=== PATIENT | male | born 1985 ===

== ENCOUNTER 2017-07-15 18:31 | Inpatient (IN) | payer OTHER ==
[2017-07-15 18:31] VITALS: BMI 26.4
[2017-07-15] MEDS ORDERED: Multivitamin (MVI) 10 ML, Thiamine 100 MG, Folic Acid 1 MG in Dextrose 5%/0.45% NS 1,00... IV ONE (19:04)
[2017-07-15] MEDS ORDERED: Sodium Chloride 0.9% 1,000 ML IV STA (19:04)
[2017-07-15 19:32] LABS: ALB/GLOB RATIO 1.1 (1.0-2.1); ALT/SGPT 35 U/L (21-72); AST/SGOT 40 U/L (17-59); BLOOD UREA NITROGEN 16 mg/dl (9-20); CALCIUM 8.6 mg/dL (8.4-10.2); GFR AFRICAN-AMERICAN > 60; GFR NON-AFRICAN AMERICAN > 60; LIPASE 206 U/L (23-300); MAGNESIUM 2.1 MG/DL (1.6-2.3)
[2017-07-15 19:38] LABS: VENOUS BLOOD GAS BASE EXCESS 0.7 mmol/L (0.0-2.0); VENOUS BLOOD GAS PCO2 35 mmHg (40-60); VENOUS BLOOD GAS PO2 54 mm/Hg (30-55); VENOUS BLOOD PH 7.45 (7.32-7.43)
[2017-07-15 19:41] LABS: PARTIAL THROMBOPLASTIN TIME 28.5 Seconds (25.6-37.1); PROTHROMBIN TIME 11.5 Seconds (9.8-13.1)
[2017-07-15 21:09] LABS: BASO % 0.3 % (0.0-2.0); EOS % 0.1 % (0.0-4.0); HEMOGLOBIN 11.7 g/dL (12.0-18.0); LYMPH % 19.6 % (20.0-40.0); MEAN CELL VOLUME 76.7 fl (80.0-94.0); MEAN CORPUSCULAR HEMOGLOBIN 24.2 pg (27.0-31.0); MEAN CORPUSCULAR HGB CONC 31.6 g/dL (33.0-37.0); MONO # 0.8 K/uL (0.0-0.8); MONO % 5.3 % (0.0-10.0); NEUT # 11.4 K/uL (1.8-7.0); NEUT % 74.7 % (50.0-75.0); NRBC % 0.1 % (0.0-0.0); RBC 4.85 Mil/uL (4.40-5.90); RED CELL DISTRIBUTION WIDTH 17.2 % (11.5-14.5); WHITE BLOOD COUNT 15.2 K/uL (4.8-10.8)
--- NOTE | 2017-07-15 21:10 | CP.PCM.HP ---
History of Present Illness - History of Present Illness History of Present Illness: PMD: None Chief Complaint: Abdominal Pain/ vomiting Blood The Patient was seen and examined in the ED HPI:32 years old male with hx of HTN, DM II, Schizophrenia Alcohol Abuse and GI bleed, comes with Hematemesis from the previous night associated with rectal bleeding, abdominal pain and SOB. He had been drinking on the night before this admission. He referred similar event last year and was treated at the [facility], undergoing Endoscopy. "Results unknown. PMH: Fractures, HTN?, DM II?; Schizophrenia; Fracture right humeral great tuberosity; Right foot Metartarsal fracture PSH: Right shoulder Clavicular Fx s/p surgery 10 years ago in [facility] SH: ETOH since 12years, 2 bottles of Vodka daily; Live with friends; used to work in restaurant now unemployed; Never smoked FH: States: Unknown Family Hx Allergies: NKDA Medication: None - Present on Admission - Present on Admission Any Indicators Present on Admission: No History of DVT/PE: No History of Uncontrolled Diabetes: No Urinary Catheter: No Decubitus Ulcer Present: No Review of Systems - Review of Systems Systems not reviewed;Unavailable: Intoxicated Review of Systems: Review of systems is limited because of the intoxication Past Patient History - Past Medical History & Family History Past Medical History?: Yes - Past Social History Smoking Status: Never Smoked Chewing Tobacco Use: No Cigar Use: No Alcohol: > 2 Drinks/Day Drugs: Denies Home Situation {Lives}: Friends - CARDIAC Hx Cardiac Disorders: No Hx Hypertension: Yes - PULMONARY Hx Respiratory Disorders: No Hx Tuberculosis: No - NEUROLOGICAL Hx Neurological Disorder: No Hx Seizures: No - HEENT Hx HEENT Problems: No - RENAL Hx Renal Failure: Yes - ENDOCRINE/METABOLIC Hx Endocrine Disorders: No Hx Diabetes Mellitus Type 2: Yes - HEMATOLOGICAL/ONCOLOGICAL Hx Blood Disorders: No Hx Human Immunodeficiency Virus (HIV): No - INTEGUMENTARY Hx Dermatological Problems: No - MUSCULOSKELETAL/RHEUMATOLOGICAL Hx Musculoskeletal Disorders: Yes Hx Falls: Yes Hx Fractures: Yes - GASTROINTESTINAL Hx Gastrointestinal Disorders: No - GENITOURINARY/GYNECOLOGICAL Hx Genitourinary Disorders: No Hx Sexually Transmitted Disorders: No - PSYCHIATRIC Hx Psychophysiologic Disorder: No Hx Anxiety: No Hx Bipolar Disorder: No Hx Depression: No Hx Schizophrenia: No Hx Substance Use: Yes (use of cocaine one time) - SURGICAL HISTORY Hx Surgeries: Yes - ANESTHESIA Hx Anesthesia: Yes Hx Anesthesia Reactions: No Meds Allergies/Adverse Reactions: Allergies Allergy/AdvReac Type Severity Reaction Status Date / Time No Known Allergies Allergy Verified 05/30/16 09:21 Physical Exam - Constitutional Appears: No Acute Distress - Head Exam Head Exam: ATRAUMATIC, NORMAL INSPECTION, NORMOCEPHALIC - Eye Exam Eye Exam: EOMI, Normal appearance Pupil Exam: NORMAL ACCOMODATION, PERRL - ENT Exam ENT Exam: Mucous Membranes Moist, Normal Exam, Normal External Ear Exam - Neck Exam Neck exam: Positive for: Full Rom, Normal Inspection. Negative for: Lymphadenopathy, Tenderness - Respiratory Exam Respiratory Exam: Clear to Auscultation Bilateral. absent: Rales, Rhonchi, Wheezes - Cardiovascular Exam Cardiovascular Exam: REGULAR RHYTHM, +S1, +S2. absent: Gallop - GI/Abdominal Exam GI & Abdominal Exam: Normal Bowel Sounds, Soft Additional comments: Epigastric tenderness, no rebound tenderness, no guarding. - Rectal Exam Rectal Exam: Black Stool - Extremities Exam Extremities exam: Positive for: normal inspection. Negative for: calf tenderness, joint swelling, pedal edema - Back Exam Back exam: NORMAL INSPECTION. absent: CVA tenderness (L), CVA tenderness (R) - Neurological Exam Neurological exam: CN II-XII Intact, Reflexes Normal Additional comments: Awake , Oriented but slow mentation because of the intoxication, poor memory, no facial droop, Motor tone is conserved. Motor strength equal at all 4 extremities - Psychiatric Exam Psychiatric exam: Normal Affect, Normal Mood - Skin Skin Exam: Dry, Intact, Normal Color, Warm Results - Vital Signs Recent Vital Signs: Last Vital Signs Temp 98.9 F 07/15/17 18:34 Pulse 132 H 07/15/17 20:29 Resp 18 07/15/17 20:29 BP 118/79 07/15/17 20:29 Pulse Ox 97 07/15/17 20:29 - Labs Result Diagrams: 07/15/17 19:14 07/15/17 19:12 Labs: Laboratory Results - last 24 hr 07/15/17 07/15/17 07/15/17 18:56 19:12 19:12 PT INR APTT pO2 VBG pH VBG pCO2 VBG HCO3 VBG Total CO2 VBG O2 Sat (Calc) VBG Base Excess VBG Potassium Glucose Lactate FiO2 Crit Value Called To Crit Value Called By Crit Value Read Back Blood Gas Notified Time Sodium 140 Potassium 3.2 L Chloride 97 L Carbon Dioxide 23 Anion Gap 23 H BUN 16 Creatinine 0.7 L Est GFR ( Amer) > 60 Est GFR (Non-Af Amer) > 60 POC Glucose (mg/dL) 123 H Random Glucose 131 H Calcium 8.6 Phosphorus 3.0 Magnesium 2.1 Total Bilirubin 0.4 AST 40 ALT 35 Alkaline Phosphatase 68 Ammonia 17 Total Protein 7.8 Albumin 4.0 Globulin 3.7 Albumin/Globulin Ratio 1.1 Lipase 206 Venous Blood Potassium Alcohol, Quantitative 249 H 07/15/17 07/15/17 19:12 19:30 PT 11.5 INR 1.0 APTT 28.5 pO2 54 VBG pH 7.45 H VBG pCO2 35 L VBG HCO3 25.3 VBG Total CO2 25.4 VBG O2 Sat (Calc) 95.6 H VBG Base Excess 0.7 VBG Potassium 2.9 L Glucose 125 H Lactate 4.4 H* FiO2 21.0 Crit Value Called To Emilee rosas Crit Value Called By 23 Crit Value Read Back Y Blood Gas Notified Time 1934 Sodium 137.0 Potassium Chloride 105.0 Carbon Dioxide Anion Gap BUN Creatinine Est GFR ( Amer) Est GFR (Non-Af Amer) POC Glucose (mg/dL) Random Glucose Calcium Phosphorus Magnesium Total Bilirubin AST ALT Alkaline Phosphatase Ammonia Total Protein Albumin Globulin Albumin/Globulin Ratio Lipase Venous Blood Potassium 2.9 L Alcohol, Quantitative - EKG Data EKG comments: Sinus Tachycardia 137/min - Imaging and Cardiology Chest x-ray Status: Image reviewed by me Additional comment: No infiltrate Assessment & Plan - Assessment and Plan (Free Text) Assessment: #. GI Bleed #. Alcohpol Intoxication #. Anemia #. Hypokalemia #. Leukocytosis Plan: 32 years old male with hx of HTN, DM II, Schizophrenia Alcohol Abuse and GI bleed, comes with Hematemesis from the previous night associated with rectal bleeding, abdominal pain and SOB. He had been drinking on the night before this admission. #. GI Bleed probably secondary to rupture Esophageal varices vs Hemorrhagic Gastritis - consult [facility] - NPO - Octreotide - Pantoprazole #. Anemia Secondary to blood loss - Type and Cross and transfuse PRBC - Follow HB #. Alcohpol Intoxication - IV Fluids - Alcohol withdrawal precaution with Ativan for Agitation/Seizure . - Banana Bag with Multivitamin/ Folic Acid/ Vitamin B12 #. Hypokalemia. Replaced - Follow Electrolytes #. DVT prophylaxis with SCD #. Code Status: Full - Date & Time Date: 07/15/17 Time: 21:10
[2017-07-15] MEDS ORDERED: Octreotide 500 mcg/ml Inj IV STA (21:43)
[2017-07-15] MEDS: Pantoprazole 40 MG in Sodium Chloride 0.9% 100 ML IVPB SCH (21:58)
--- NOTE | 2017-07-15 22:10 | ED PDOC ---
HPI:Nausea, Vomiting, Diarrhea Time Seen by Provider: 07/15/17 18:57 Chief Complaint (Nursing): Abdominal Pain Chief Complaint (Provider): vomiting blood History Per: Patient History/Exam Limitations: intoxication Onset/Duration Of Symptoms: Days (2), Persistent Additional Complaint(s): Reports vomiting blood since last night, associated with rectal bleeding as well. Pt admits heavy drinking every day and h/o GI bleed. Also c/o abdominal pain and shortness of breath and nausea. History difficult due to intoxication, but he reports that he had similar presentation last year, evaluated and managed in [facility], including undergoing an endoscopy, but does not remember the results. PMD None. Past Medical History Reviewed: Historical Data, Nursing Documentation, Vital Signs Vital Signs: Last Vital Signs Temp 98.9 F 07/15/17 18:34 Pulse 130 H 07/15/17 21:37 Resp 17 07/15/17 21:37 BP 132/82 07/15/17 21:37 Pulse Ox 97 07/15/17 21:37 - Medical History PMH: Fractures, HTN Other PMH: Psychiatric history from previous charts - Surgical History Surgical History: Endoscopy - Family History Family History: States: Unknown Family Hx - Social History Alcohol: > 2 Drinks/Day Drugs: Denies - Home Medications Home Medications: Ambulatory Orders Medication Instructions Recorded No Known Home Med 07/15/17 - Allergies Allergies/Adverse Reactions: Allergies Allergy/AdvReac Type Severity Reaction Status Date / Time No Known Allergies Allergy Verified 05/30/16 09:21 Review of Systems ROS Statement: Except As Marked, All Systems Reviewed And Found Negative (and as per HPI but may be unreliable due to intoxication) Constitutional: Positive for: Weakness, Malaise Gastrointestinal: Positive for: Vomiting, Abdominal Pain, Hematochezia, Hematemesis Neurological: Positive for: Weakness Physical Exam - Reviewed Nursing Documentation Reviewed: Yes Vital Signs Reviewed: Yes - Physical Exam Appears: Positive for: Uncomfortable, In Acute Distress Head Exam: Positive for: ATRAUMATIC, NORMOCEPHALIC Skin: Positive for: Warm, Dry, Pallor ENT: Positive for: Other (dry mucus membranes). Negative for: Pharyngeal Erythema, Tonsillar Exudate Neck: Positive for: Painless ROM, Supple Cardiovascular/Chest: Positive for: Tachycardia. Negative for: Murmur Respiratory: Positive for: Normal Breath Sounds. Negative for: Wheezing Gastrointestinal/Abdominal: Positive for: Soft, Tenderness. Negative for: Mass , Distended, Guarding, Rebound Back: Positive for: Normal Inspection. Negative for: Decreased ROM Extremity: Positive for: Normal ROM. Negative for: Deformity Lymphatic: Negative for: Adenopathy Neurologic/Psych: Positive for: Alert, Oriented (x2), Other (slurred speech) - Laboratory Results Result Diagrams: 07/16/17 08:00 07/16/17 08:34 - ECG ECG Rhythm: Positive for: Sinus Rhythm, Sinus Tachycardia. Negative for: ST/T Changes O2 Sat by Pulse Oximetry: 97 - Radiology X-Ray: Interpreted by Id X-Ray Interpretation: No Acute Disease - Critical Care Total Time (In Min): 30 Documented Critical Care: Time excludes all time spent performint seperately billable procedures Medical Decision Making Medical Decision Making: Impression: GI Bleed, alcohol abuse Pt had episodes of bright red bloody emesis in ER, witnessed by myself and RN. Tachycardia, treated with fluids and Ativan for possible withdrawal. Differential include esophageal varices, hemorrhagic ulcer, margie padilla tear, coagulopathy, anemia, dehydration, alcohol withdrawal IVF, Octreotride drip, Protonix drip, IV zofran. and Transfusion DW Dr Armstrong Hospitalist for admission and ICU placement [facility] GI Fellow for Dr Kim GI Disposition - Clinical Impression Clinical Impression: Hematemesis, Alcohol abuse - Disposition Disposition Time: 19:00 Condition: CRITICAL - Pt Status Changed To: Hospital Disposition Of: Inpatient - Admit Certification Admit to Inpatient:: After my assessment, the patient will require hospitalization for at least two midnights. This is because of the severity of symptoms shown, intensity of services needed, and/or the medical risk in this patient being treated as an outpatient. - POA Present On Arrival: None
[2017-07-15 22:26] LABS: BARBITURATES, UR NEGATIVE (NEGATIVE); BENZODIAZEPINES, UR NEGATIVE (NEGATIVE); OPIATES, UR NEGATIVE (NEGATIVE); PHENCYCLIDINE, UR NEGATIVE (NEGATIVE)
[2017-07-15] MEDS ORDERED: DiphenhydrAMINE 50 mg/ml Inj IVP STA (22:50)
[2017-07-15] MEDS ORDERED: DiphenhydrAMINE 50 mg/ml Inj ONE (23:09)
[2017-07-16] MEDS: Pantoprazole 40 MG in Sodium Chloride 0.9% 100 ML IVPB SCH ×4 (03:45→20:06)
--- NOTE | 2017-07-16 07:45 | CP.CCUPN ---
CCU Subjective - Physician Review Events Since Last Encounter (Free Text): 07/16/17 18:05 The patient was Seen/interviewed and examined by me at the bedside during ICU round, Medical records reviewed and Management issues were discussed and formulated with the house staff. Events reviewed 32 Years old Male with PMHx of Alcohol Abuse age of 12years, HTN, DM II, Schizophrenia; Fracture right humeral great tuberosity; Right foot Metartarsal fracture and GI bleed. Who presented to the Emergency department with complaint of abdominal Pain, vomiting Blood from the previous night associated with rectal bleeding and SOB. He had been drinking on the night before this admission. He stated that he had a similar event last year and was treated at the [facility], underwent Endoscopy but does not remember the Results. Patient was started on Octreotide & Pantoprazole drips and admitted to the ICU for acute upper GI Bleed and Alcohol Intoxication Patient was transfused one unit packed RBC in the ER Labs revealed stable H/H, urine drug screen negative, Etoh level of 249 CCU Objective - Vital Signs / Intake & Output Vital Signs (Last 4 hours): Vital Signs Temp Pulse Resp BP Pulse Ox 07/16/17 06:36 93 H 16 139/92 H 98 07/16/17 05:34 97 H 16 130/87 98 07/16/17 03:55 98.9 F 106 H 22 111/80 99 Intake and Output (Last 8hrs): Intake & Output 07/15/17 07/16/17 07/16/17 22:59 06:59 14:59 Weight 180 lb - Physical Exam Head: Positive for: Atraumatic, Normocephalic Pupils: Positive for: PERRL. Negative for: Sluggish, Non-Reactive, Pinpoint Extroacular Muscles: Positive for: EOMI Conjunctiva: Positive for: Normal. Negative for: Injected, Icteric Ears: Positive for: Normal Mouth: Positive for: Moist Mucous Membranes Pharnyx: Positive for: Normal Neck: Positive for: Normal Range of Motion, Trachea Midline. Negative for: Meningeal Signs, MIDLINE TENDERNESS, Paraspinal Tenderness, JVD, Lymphadenopathy , Bruit, Other Respiratory/Chest: Positive for: Clear to Auscultation, Good Air Exchange. Negative for: Respiratory Distress, Accessory Muscle Use, Wheezes, Decreased Breath Sounds, Rales Cardiovascular: Positive for: Regular Rate and Rhythm, Normal S1, S2, Peripheal Pulses Present. Negative for: Murmurs, Irregular Rhythm Abdomen: Positive for: Normal Bowel Sounds. Negative for: Tenderness, Distention, Peritoneal Signs Neurological: Positive for: GCS=15, CN II-XII Intact, Speech Normal Psychiatric: Positive for: Alert, Oriented x 3 - Medications Active Medications: Active Medications Generic Name Dose Route Start Last Admin Trade Name Freq PRN Reason Stop Dose Admin Octreotide Acetate 1,250 mcg/ 252.5 mls @ 10.1 mls/hr 07/15/17 21:00 22:43 Sodium Chloride IV 10.1 mls/hr .Q24H LUNA Administration Protocol 50 MCG/HR Pantoprazole Sodium 40 mg/ 100 mls @ 20 mls/hr 07/15/17 21:15 07/16/17 03:45 Sodium Chloride IVPB 20 mls/hr Q5H LUNA Administration 8 MG/HR Lactated Ringer's 1,000 mls @ 125 mls/hr 07/16/17 07:15 Lactated Ringer's IV .Q8H LUNA Lorazepam 1 mg 07/15/17 23:36 Ativan IVP Q4H PRN Agitation Ondansetron HCl 4 mg 07/15/17 23:03 Zofran Inj IVP Q4 PRN Nausea/Vomiting Thiamine HCl 100 mg 07/16/17 09:00 Vitamin B1 Inj IM DAILY LUNA - Patient Studies Lab Studies: Lab Studies 07/15/17 07/15/17 07/15/17 Range/Units 23:54 21:50 21:45 WBC (4.8-10.8) K/uL RBC (4.40-5.90) Mil/uL Hgb (12.0-18.0) g/dL Hct (35.0-51.0) % MCV (80.0-94.0) fl MCH (27.0-31.0) pg MCHC (33.0-37.0) g/dL RDW (11.5-14.5) % Plt Count (130-400) K/uL MPV (7.2-11.7) fl Neut % (Auto) (50.0-75.0) % Lymph % (Auto) (20.0-40.0) % [place] % (Auto) (0.0-10.0) % Eos % (Auto) (0.0-4.0) % Baso % (Auto) (0.0-2.0) % Neut # (Auto) (1.8-7.0) K/uL Lymph # (Auto) (1.0-4.3) K/uL [place] # (Auto) (0.0-0.8) K/uL Eos # (Auto) (0.0-0.7) K/uL Baso # (Auto) (0.0-0.2) K/uL PT (9.8-13.1) Seconds INR (0.9-1.2) APTT (25.6-37.1) Seconds pO2 (30-55) mm/Hg VBG pH (7.32-7.43) VBG pCO2 (40-60) mmHg VBG HCO3 mmol/L VBG Total CO2 (22-28) mmol/L VBG O2 Sat (Calc) (40-65) % VBG Base Excess (0.0-2.0) mmol/L VBG Potassium (3.6-5.2) mmol/L Glucose (75-110) mg/dL Lactate (0.7-2.1) mmol/L FiO2 % Crit Value Called To Crit Value Called By Crit Value Read Back Blood Gas Notified Time Sodium (132-148) mmol/l Potassium (3.6-5.0) MMOL/L Chloride (98-107) mmol/L Carbon Dioxide (22-30) mmol/L Anion Gap (10-20) BUN (9-20) mg/dl Creatinine (0.8-1.5) mg/dl Est GFR ( Amer) Est GFR (Non-Af Amer) POC Glucose (mg/dL) 128 H (65-110) mg/dL Random Glucose (75-110) mg/dL Calcium (8.4-10.2) mg/dL Phosphorus (2.5-4.5) mg/dl Magnesium (1.6-2.3) MG/DL Total Bilirubin (0.2-1.3) mg/dl AST (17-59) U/L ALT (21-72) U/L Alkaline Phosphatase (38-126) U/L Ammonia (16-60) umo/L Total Protein (6.3-8.2) G/DL Albumin (3.5-5.0) g/dL Globulin (2.2-3.9) gm/dL Albumin/Globulin Ratio (1.0-2.1) Lipase (23-300) U/L Venous Blood Potassium (3.6-5.2) mmol/L Urine Opiates Screen Negative (NEGATIVE) Urine Methadone Screen Negative (NEGATIVE) Ur Barbiturates Screen Negative (NEGATIVE) Ur Phencyclidine Scrn Negative (NEGATIVE) Ur Amphetamines Screen Negative (NEGATIVE) U Benzodiazepines Scrn Negative (NEGATIVE) U Oth Cocaine Metabols Negative (NEGATIVE) U Cannabinoids Screen Negative (NEGATIVE) Alcohol, Quantitative (0-10) mg/dl Blood Type Blood Type Confirm A POSITIVE Antibody Screen Crossmatch BBK History Checked 07/15/17 07/15/17 07/15/17 Range/Units 21:11 19:30 19:14 WBC 15.2 H D (4.8-10.8) K/uL RBC 4.85 (4.40-5.90) Mil/uL Hgb 11.7 L (12.0-18.0) g/dL Hct 37.2 (35.0-51.0) % MCV 76.7 L D (80.0-94.0) fl MCH 24.2 L (27.0-31.0) pg MCHC 31.6 L (33.0-37.0) g/dL RDW 17.2 H (11.5-14.5) % Plt Count 248 D (130-400) K/uL MPV 9.0 (7.2-11.7) fl Neut % (Auto) 74.7 (50.0-75.0) % Lymph % (Auto) 19.6 L (20.0-40.0) % [place] % (Auto) 5.3 (0.0-10.0) % Eos % (Auto) 0.1 (0.0-4.0) % Baso % (Auto) 0.3 (0.0-2.0) % Neut # (Auto) 11.4 H (1.8-7.0) K/uL Lymph # (Auto) 3.0 (1.0-4.3) K/uL [place] # (Auto) 0.8 (0.0-0.8) K/uL Eos # (Auto) 0.0 (0.0-0.7) K/uL Baso # (Auto) 0.0 (0.0-0.2) K/uL PT (9.8-13.1) Seconds INR (0.9-1.2) APTT (25.6-37.1) Seconds pO2 54 (30-55) mm/Hg VBG pH 7.45 H (7.32-7.43) VBG pCO2 35 L (40-60) mmHg VBG HCO3 25.3 mmol/L VBG Total CO2 25.4 (22-28) mmol/L VBG O2 Sat (Calc) 95.6 H (40-65) % VBG Base Excess 0.7 (0.0-2.0) mmol/L VBG Potassium 2.9 L (3.6-5.2) mmol/L Glucose 125 H (75-110) mg/dL Lactate 4.4 H* (0.7-2.1) mmol/L FiO2 21.0 % Crit Value Called To Emilee rosas Crit Value Called By 23 Crit Value Read Back Y Blood Gas Notified Time 1934 Sodium 137.0 (132-148) mmol/l Potassium (3.6-5.0) MMOL/L Chloride 105.0 (98-107) mmol/L Carbon Dioxide (22-30) mmol/L Anion Gap (10-20) BUN (9-20) mg/dl Creatinine (0.8-1.5) mg/dl Est GFR ( Amer) Est GFR (Non-Af Amer) POC Glucose (mg/dL) 118 H (65-110) mg/dL Random Glucose (75-110) mg/dL Calcium (8.4-10.2) mg/dL Phosphorus (2.5-4.5) mg/dl Magnesium (1.6-2.3) MG/DL Total Bilirubin (0.2-1.3) mg/dl AST (17-59) U/L ALT (21-72) U/L Alkaline Phosphatase (38-126) U/L Ammonia (16-60) umo/L Total Protein (6.3-8.2) G/DL Albumin (3.5-5.0) g/dL Globulin (2.2-3.9) gm/dL Albumin/Globulin Ratio (1.0-2.1) Lipase (23-300) U/L Venous Blood Potassium 2.9 L (3.6-5.2) mmol/L Urine Opiates Screen (NEGATIVE) Urine Methadone Screen (NEGATIVE) Ur Barbiturates Screen (NEGATIVE) Ur Phencyclidine Scrn (NEGATIVE) Ur Amphetamines Screen (NEGATIVE) U Benzodiazepines Scrn (NEGATIVE) U Oth Cocaine Metabols (NEGATIVE) U Cannabinoids Screen (NEGATIVE) Alcohol, Quantitative (0-10) mg/dl Blood Type Blood Type Confirm Antibody Screen Crossmatch BBK History Checked 07/15/17 07/15/17 07/15/17 Range/Units 19:12 19:12 19:12 WBC (4.8-10.8) K/uL RBC (4.40-5.90) Mil/uL Hgb (12.0-18.0) g/dL Hct (35.0-51.0) % MCV (80.0-94.0) fl MCH (27.0-31.0) pg MCHC (33.0-37.0) g/dL RDW (11.5-14.5) % Plt Count (130-400) K/uL MPV (7.2-11.7) fl Neut % (Auto) (50.0-75.0) % Lymph % (Auto) (20.0-40.0) % [place] % (Auto) (0.0-10.0) % Eos % (Auto) (0.0-4.0) % Baso % (Auto) (0.0-2.0) % Neut # (Auto) (1.8-7.0) K/uL Lymph # (Auto) (1.0-4.3) K/uL [place] # (Auto) (0.0-0.8) K/uL Eos # (Auto) (0.0-0.7) K/uL Baso # (Auto) (0.0-0.2) K/uL PT 11.5 (9.8-13.1) Seconds INR 1.0 (0.9-1.2) APTT 28.5 (25.6-37.1) Seconds pO2 (30-55) mm/Hg VBG pH (7.32-7.43) VBG pCO2 (40-60) mmHg VBG HCO3 mmol/L VBG Total CO2 (22-28) mmol/L VBG O2 Sat (Calc) (40-65) % VBG Base Excess (0.0-2.0) mmol/L VBG Potassium (3.6-5.2) mmol/L Glucose (75-110) mg/dL Lactate (0.7-2.1) mmol/L FiO2 % Crit Value Called To Crit Value Called By Crit Value Read Back Blood Gas Notified Time Sodium (132-148) mmol/l Potassium (3.6-5.0) MMOL/L Chloride (98-107) mmol/L Carbon Dioxide (22-30) mmol/L Anion Gap (10-20) BUN (9-20) mg/dl Creatinine (0.8-1.5) mg/dl Est GFR ( Amer) Est GFR (Non-Af Amer) POC Glucose (mg/dL) (65-110) mg/dL Random Glucose (75-110) mg/dL Calcium (8.4-10.2) mg/dL Phosphorus (2.5-4.5) mg/dl Magnesium (1.6-2.3) MG/DL Total Bilirubin (0.2-1.3) mg/dl AST (17-59) U/L ALT (21-72) U/L Alkaline Phosphatase (38-126) U/L Ammonia 17 (16-60) umo/L Total Protein (6.3-8.2) G/DL Albumin (3.5-5.0) g/dL Globulin (2.2-3.9) gm/dL Albumin/Globulin Ratio (1.0-2.1) Lipase (23-300) U/L Venous Blood Potassium (3.6-5.2) mmol/L Urine Opiates Screen (NEGATIVE) Urine Methadone Screen (NEGATIVE) Ur Barbiturates Screen (NEGATIVE) Ur Phencyclidine Scrn (NEGATIVE) Ur Amphetamines Screen (NEGATIVE) U Benzodiazepines Scrn (NEGATIVE) U Oth Cocaine Metabols (NEGATIVE) U Cannabinoids Screen (NEGATIVE) Alcohol, Quantitative (0-10) mg/dl Blood Type A POSITIVE Blood Type Confirm Antibody Screen Negative Crossmatch See Detail BBK History Checked No verified bt 07/15/17 07/15/17 Range/Units 19:12 18:56 WBC (4.8-10.8) K/uL RBC (4.40-5.90) Mil/uL Hgb (12.0-18.0) g/dL Hct (35.0-51.0) % MCV (80.0-94.0) fl MCH (27.0-31.0) pg MCHC (33.0-37.0) g/dL RDW (11.5-14.5) % Plt Count (130-400) K/uL MPV (7.2-11.7) fl Neut % (Auto) (50.0-75.0) % Lymph % (Auto) (20.0-40.0) % [place] % (Auto) (0.0-10.0) % Eos % (Auto) (0.0-4.0) % Baso % (Auto) (0.0-2.0) % Neut # (Auto) (1.8-7.0) K/uL Lymph # (Auto) (1.0-4.3) K/uL [place] # (Auto) (0.0-0.8) K/uL Eos # (Auto) (0.0-0.7) K/uL Baso # (Auto) (0.0-0.2) K/uL PT (9.8-13.1) Seconds INR (0.9-1.2) APTT (25.6-37.1) Seconds pO2 (30-55) mm/Hg VBG pH (7.32-7.43) VBG pCO2 (40-60) mmHg VBG HCO3 mmol/L VBG Total CO2 (22-28) mmol/L VBG O2 Sat (Calc) (40-65) % VBG Base Excess (0.0-2.0) mmol/L VBG Potassium (3.6-5.2) mmol/L Glucose (75-110) mg/dL Lactate (0.7-2.1) mmol/L FiO2 % Crit Value Called To Crit Value Called By Crit Value Read Back Blood Gas Notified Time Sodium 140 (132-148) mmol/l Potassium 3.2 L (3.6-5.0) MMOL/L Chloride 97 L (98-107) mmol/L Carbon Dioxide 23 (22-30) mmol/L Anion Gap 23 H (10-20) BUN 16 (9-20) mg/dl Creatinine 0.7 L (0.8-1.5) mg/dl Est GFR ( Amer) > 60 Est GFR (Non-Af Amer) > 60 POC Glucose (mg/dL) 123 H (65-110) mg/dL Random Glucose 131 H (75-110) mg/dL Calcium 8.6 (8.4-10.2) mg/dL Phosphorus 3.0 (2.5-4.5) mg/dl Magnesium 2.1 (1.6-2.3) MG/DL Total Bilirubin 0.4 (0.2-1.3) mg/dl AST 40 (17-59) U/L ALT 35 (21-72) U/L Alkaline Phosphatase 68 (38-126) U/L Ammonia (16-60) umo/L Total Protein 7.8 (6.3-8.2) G/DL Albumin 4.0 (3.5-5.0) g/dL Globulin 3.7 (2.2-3.9) gm/dL Albumin/Globulin Ratio 1.1 (1.0-2.1) Lipase 206 (23-300) U/L Venous Blood Potassium (3.6-5.2) mmol/L Urine Opiates Screen (NEGATIVE) Urine Methadone Screen (NEGATIVE) Ur Barbiturates Screen (NEGATIVE) Ur Phencyclidine Scrn (NEGATIVE) Ur Amphetamines Screen (NEGATIVE) U Benzodiazepines Scrn (NEGATIVE) U Oth Cocaine Metabols (NEGATIVE) U Cannabinoids Screen (NEGATIVE) Alcohol, Quantitative 249 H (0-10) mg/dl Blood Type Blood Type Confirm Antibody Screen Crossmatch BBK History Checked Laboratory Results - last 24 hr 07/15/17 07/15/17 07/15/17 18:56 19:12 19:12 WBC RBC Hgb Hct MCV MCH MCHC RDW Plt Count MPV Neut % (Auto) Lymph % (Auto) [place] % (Auto) Eos % (Auto) Baso % (Auto) Neut # (Auto) Lymph # (Auto) [place] # (Auto) Eos # (Auto) Baso # (Auto) PT INR APTT pO2 VBG pH VBG pCO2 VBG HCO3 VBG Total CO2 VBG O2 Sat (Calc) VBG Base Excess VBG Potassium Glucose Lactate FiO2 Crit Value Called To Crit Value Called By Crit Value Read Back Blood Gas Notified Time Sodium 140 Potassium 3.2 L Chloride 97 L Carbon Dioxide 23 Anion Gap 23 H BUN 16 Creatinine 0.7 L Est GFR ( Amer) > 60 Est GFR (Non-Af Amer) > 60 POC Glucose (mg/dL) 123 H Random Glucose 131 H Calcium 8.6 Phosphorus 3.0 Magnesium 2.1 Total Bilirubin 0.4 AST 40 ALT 35 Alkaline Phosphatase 68 Ammonia 17 Total Protein 7.8 Albumin 4.0 Globulin 3.7 Albumin/Globulin Ratio 1.1 Lipase 206 Venous Blood Potassium Urine Opiates Screen Urine Methadone Screen Ur Barbiturates Screen Ur Phencyclidine Scrn Ur Amphetamines Screen U Benzodiazepines Scrn U Oth Cocaine Metabols U Cannabinoids Screen Alcohol, Quantitative 249 H Blood Type Blood Type Confirm Antibody Screen Crossmatch BBK History Checked 07/15/17 07/15/17 07/15/17 19:12 19:12 19:14 WBC 15.2 H D RBC 4.85 Hgb 11.7 L Hct 37.2 MCV 76.7 L D MCH 24.2 L MCHC 31.6 L RDW 17.2 H Plt Count 248 D MPV 9.0 Neut % (Auto) 74.7 Lymph % (Auto) 19.6 L [place] % (Auto) 5.3 Eos % (Auto) 0.1 Baso % (Auto) 0.3 Neut # (Auto) 11.4 H Lymph # (Auto) 3.0 [place] # (Auto) 0.8 Eos # (Auto) 0.0 Baso # (Auto) 0.0 PT 11.5 INR 1.0 APTT 28.5 pO2 VBG pH VBG pCO2 VBG HCO3 VBG Total CO2 VBG O2 Sat (Calc) VBG Base Excess VBG Potassium Glucose Lactate FiO2 Crit Value Called To Crit Value Called By Crit Value Read Back Blood Gas Notified Time Sodium Potassium Chloride Carbon Dioxide Anion Gap BUN Creatinine Est GFR ( Amer) Est GFR (Non-Af Amer) POC Glucose (mg/dL) Random Glucose Calcium Phosphorus Magnesium Total Bilirubin AST ALT Alkaline Phosphatase Ammonia Total Protein Albumin Globulin Albumin/Globulin Ratio Lipase Venous Blood Potassium Urine Opiates Screen Urine Methadone Screen Ur Barbiturates Screen Ur Phencyclidine Scrn Ur Amphetamines Screen U Benzodiazepines Scrn U Oth Cocaine Metabols U Cannabinoids Screen Alcohol, Quantitative Blood Type A POSITIVE Blood Type Confirm Antibody Screen Negative Crossmatch See Detail BBK History Checked No verified bt 07/15/17 07/15/17 07/15/17 19:30 21:11 21:45 WBC RBC Hgb Hct MCV MCH MCHC RDW Plt Count MPV Neut % (Auto) Lymph % (Auto) [place] % (Auto) Eos % (Auto) Baso % (Auto) Neut # (Auto) Lymph # (Auto) [place] # (Auto) Eos # (Auto) Baso # (Auto) PT INR APTT pO2 54 VBG pH 7.45 H VBG pCO2 35 L VBG HCO3 25.3 VBG Total CO2 25.4 VBG O2 Sat (Calc) 95.6 H VBG Base Excess 0.7 VBG Potassium 2.9 L Glucose 125 H Lactate 4.4 H* FiO2 21.0 Crit Value Called To Emilee rosas Crit Value Called By 23 Crit Value Read Back Y Blood Gas Notified Time 1934 Sodium 137.0 Potassium Chloride 105.0 Carbon Dioxide Anion Gap BUN Creatinine Est GFR ( Amer) Est GFR (Non-Af Amer) POC Glucose (mg/dL) 118 H Random Glucose Calcium Phosphorus Magnesium Total Bilirubin AST ALT Alkaline Phosphatase Ammonia Total Protein Albumin Globulin Albumin/Globulin Ratio Lipase Venous Blood Potassium 2.9 L Urine Opiates Screen Urine Methadone Screen Ur Barbiturates Screen Ur Phencyclidine Scrn Ur Amphetamines Screen U Benzodiazepines Scrn U Oth Cocaine Metabols U Cannabinoids Screen Alcohol, Quantitative Blood Type Blood Type Confirm A POSITIVE Antibody Screen Crossmatch BBK History Checked 07/15/17 07/15/17 21:50 23:54 WBC RBC Hgb Hct MCV MCH MCHC RDW Plt Count MPV Neut % (Auto) Lymph % (Auto) [place] % (Auto) Eos % (Auto) Baso % (Auto) Neut # (Auto) Lymph # (Auto) [place] # (Auto) Eos # (Auto) Baso # (Auto) PT INR APTT pO2 VBG pH VBG pCO2 VBG HCO3 VBG Total CO2 VBG O2 Sat (Calc) VBG Base Excess VBG Potassium Glucose Lactate FiO2 Crit Value Called To Crit Value Called By Crit Value Read Back Blood Gas Notified Time Sodium Potassium Chloride Carbon Dioxide Anion Gap BUN Creatinine Est GFR ( Amer) Est GFR (Non-Af Amer) POC Glucose (mg/dL) 128 H Random Glucose Calcium Phosphorus Magnesium Total Bilirubin AST ALT Alkaline Phosphatase Ammonia Total Protein Albumin Globulin Albumin/Globulin Ratio Lipase Venous Blood Potassium Urine Opiates Screen Negative Urine Methadone Screen Negative Ur Barbiturates Screen Negative Ur Phencyclidine Scrn Negative Ur Amphetamines Screen Negative U Benzodiazepines Scrn Negative U Oth Cocaine Metabols Negative U Cannabinoids Screen Negative Alcohol, Quantitative Blood Type Blood Type Confirm Antibody Screen Crossmatch BBK History Checked EKG/Cardiology Studies: Cardiology / EKG Studies 07/15/17 19:01 ELECTROCARDIOGRAM Stat Comment: Mode Of Transportation: Reason For Exam: TACHYCARDIA Fingerstick Blood Sugar Results: 124 Review of Systems - Cardiovascular Cardiovascular: absent: As Per HPI, Acrocyanosis, Chest Pain, Chest Pain at Rest , Chest Pain with Activity, Claudication, Diaphoresis, Dyspnea, Dyspnea on Exertion, Edema, Irregular Heart Rhythm, Pain Radiating to Arm/Neck/Jaw, Leg Edema, Leg Ulcers, Lightheadedness, Orthopnea, Palpitations, Paroxysmal Nocturnal Dyspnea, Pedal Edema, Radiating Pain, Rapid Heart Rate, Slow Heart Rate, Syncope, Other, UNREMARKABLE - Respiratory Respiratory: absent: As Per HPI, Cough, Dyspnea, Hemoptysis, Dyspnea on Exertion , Wheezing, Snoring, Stridor, Pain on Inspiration, Chest Congestion, Excessive Mucous Production, Change in Mucous Color, Pain with Coughing, Other, UNREMARKABLE - Gastrointestinal Gastrointestinal: Abdominal Pain, Nausea, Vomiting Critical Care Progress Note - Extremities/Vascular Does the Patient have a Central Venous Catheter?: No Does the Patient need a Central Venous Catheter?: No Does the Patient have a Landers Catheter?: No Does the Patient need a Landers Catheter?: No - Nutrition Nutrition: Nutrition Category Date Time Status NPO Diet [DIET] Diets 07/15/17 Dinner Active Assessment/Plan (1) Alcohol abuse Current Visit: Yes Status: Acute (2) Hematemesis Current Visit: Yes Status: Acute (3) Hypokalemia Current Visit: No Status: Acute - Assessment and Plan (Free Text) Assessment: - Acute upper GI bleed most likely PUD/Esophageal varesieal bleed/ Shirley Bello tear. - Anemia sec to acute Blood loss - Admit to ICU sec to hemodynamic instability (orthostatic hypotension, hypotension, tachycardia, orthostasis, syncope) - Two large bore peripheral catheters - Supplemental O2 - NPO - Volume resuscitation - Hold antihypertensives - IV Hydration, with sodium chloride 0.9% INJ @ 150 ml/hr - PANTOPRAZOLE drip - OCTREOTIDE drip - Serial CBCs q 8 /HR, RBC transfusions to keep hemoglobin > 8 - Active type and screen sent today - Consented for blood - GI evaluation called, recommend endoscopy within 24 hours of presentation for the diagnosis and treatment of active UGI bleeding and for the prevention of recurrent bleeding - DVT PPx: SCD since
--- NOTE | 2017-07-16 07:57 | CP.PCM.PN ---
Subjective - Date & Time of Evaluation Date of Evaluation: 07/16/17 Time of Evaluation: 09:30 - Subjective Subjective: Patient seen and examined bedside.States that does not feel very well. No more episodes of hematemesis or melena this AM . With minimal epigastric discomfort .BP stable, afebrile saturaing well, not tachycardic abnd with no tremors NPo for no on PPI drip Objective - Vital Signs/Intake and Output Vital Signs (last 24 hours): Temp Pulse Resp BP Pulse Ox 98.9 F 93 H 16 139/92 H 98 07/16/17 03:55 07/16/17 06:36 07/16/17 06:36 07/16/17 06:36 07/16/17 06:36 - Medications Medications: Current Medications Octreotide Acetate 1,250 mcg/ (Sodium Chloride) 252.5 mls @ 10.1 mls/hr IV .Q24H LUNA; 50 MCG/HR PRN Reason: Protocol Last Admin: 07/15/17 22:43 Dose: 10.1 mls/hr Pantoprazole Sodium 40 mg/ (Sodium Chloride) 100 mls @ 20 mls/hr IVPB Q5H LUNA PRN Reason: 8 MG/HR Last Admin: 07/16/17 03:45 Dose: 20 mls/hr Lactated Ringer's (Lactated Ringer's) 1,000 mls @ 125 mls/hr IV .Q8H LUNA Lorazepam (Ativan) 1 mg IVP Q4H PRN PRN Reason: Agitation Ondansetron HCl (Zofran Inj) 4 mg IVP Q4 PRN PRN Reason: Nausea/Vomiting Thiamine HCl (Vitamin B1 Inj) 100 mg IM DAILY LUNA - Labs Labs: 07/15/17 19:14 07/15/17 19:12 PT 11.5 Seconds (9.8-13.1) 07/15/17 19:12 INR 1.0 (0.9-1.2) 07/15/17 19:12 APTT 28.5 Seconds (25.6-37.1) 07/15/17 19:12 - Constitutional Appears: Non-toxic, No Acute Distress - Head Exam Head Exam: ATRAUMATIC, NORMAL INSPECTION, NORMOCEPHALIC Additional comments: bilateral parotid enlargement - Eye Exam Eye Exam: EOMI, Normal appearance, PERRL Pupil Exam: NORMAL ACCOMODATION - ENT Exam ENT Exam: Mucous Membranes Dry, Normal Exam - Neck Exam Neck Exam: Full ROM, Normal Inspection - Respiratory Exam Respiratory Exam: Clear to Ausculation Bilateral, NORMAL BREATHING PATTERN. absent: Rales, Rhonchi, Wheezes - Cardiovascular Exam Cardiovascular Exam: REGULAR RHYTHM, RRR, +S1, +S2. absent: JVD - GI/Abdominal Exam GI & Abdominal Exam: Soft, Normal Bowel Sounds. absent: Distended, Guarding, Rigid, Tenderness, Rebound - Rectal Exam Rectal Exam: Deferred - Extremities Exam Extremities Exam: Full ROM, Normal Capillary Refill, Normal Inspection. absent : Calf Tenderness, Pedal Edema - Back Exam Back Exam: NORMAL INSPECTION - Neurological Exam Neurological Exam: Alert, Awake, CN II-XII Intact, Oriented x3 - Psychiatric Exam Psychiatric exam: Flat Affect - Skin Skin Exam: Dry, Intact, Warm Assessment and Plan - Assessment and Plan (Free Text) Assessment: 32 years old male with hx of HTN, DM II, Schizophrenia, Alcohol Abuse and GI bleed came to ER with Hematemesis after binge drinking ,associated with rectal bleeding, abdominal pain and SOB. He had been drinking on the night before this admission.He states that stopped drinking recently but started again.Cocaine use 1 week ago. Multiple episodes of hematemesis noted in ER witg melena. started on IVF , PPI drip and Octreotide. No more bleeding episodes this AM Admitted in ICU 1. Upper GI Bleed probably secondary to rupture Esophageal varices vs Hemorrhagic Gastritis vs PUD vs Shirley Bello tear Continue PPI drip Gi consult with Dr. Kim appreciated D/c octreotide drip Continue IVF Monitor H&H ( Hgb 10 ) possible plan for EGD in AM 2. Anemia Secondary to blood loss Hgb 10 Continue monitoring 3.Alcohol Intoxication/impending DT-s/Alcohol dependence Seizure/ withdrwal precautions Ativan PRN for withdrawal No Librium since patient is NPO Continue Thiamine , folic acid and MVI IV and IVF 4. Hypokalemia Replaced 5. DM type II NPO for now Accuchecks and insulin coverage check Hgb A1c 6. Hypertension not on any medications monitor for now 7. Schizofrenia? not on any meds 8. DVT prophylaxis SCD
--- NOTE | 2017-07-16 08:26 | CP.PCM.CON ---
<Cathy White - Last Filed: 07/16/17 19:53> History of Present Illness - History of Present Illness History of Present Illness: GI Consult PGY4 Consult Note This is a 32 years old male with hx of HTN, DM II, Schizophrenia with recent inpt psychiatric admission following suicide attempt, Alcohol Abuse. Pt has a hx of drinking etoh since age 12, reported to be 2 bottles of vodka daily. Pt has had multiple admission here for alcohol intoxication and psychiatric issues. Pt now presents with complaints of vomiting and hematemesis following binge drinking. 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 Per ER doctor, pt reports hx of GI bleed last year and was treated at [facility] and had EGD but does not know results. Per nursing, pt overnight had multiple episodes of hematemesis and vomiting and later coffee ground emesis and no further vomiting for the last few hours, no reported melena or hematochezia. At the time of evaluation, pt is a poor historian with alcohol intoxication, with no further emesis. ROS: A 12pt ROS was negative except as above PMH: Fractures, HTN, DM II, Schizophrenia, suicide attempts, Alcohol abuse PSH: Right shoulder Clavicular Fx s/p surgery 10 years ago in [facility] SH: ETOH since 12years, 2 bottles of Vodka daily;Never smoked, no drugs FH: States: Unknown Family Hx Past Patient History - Past Medical History & Family History Past Medical History?: Yes - Past Social History Smoking Status: Never Smoked Chewing Tobacco Use: No Cigar Use: No Alcohol: > 2 Drinks/Day Drugs: Denies Home Situation {Lives}: Friends - CARDIAC Hx Cardiac Disorders: No Hx Hypertension: Yes - PULMONARY Hx Respiratory Disorders: No Hx Tuberculosis: No - NEUROLOGICAL Hx Neurological Disorder: No Hx Seizures: No - HEENT Hx HEENT Problems: No - RENAL Hx Renal Failure: Yes - ENDOCRINE/METABOLIC Hx Endocrine Disorders: No Hx Diabetes Mellitus Type 2: Yes - HEMATOLOGICAL/ONCOLOGICAL Hx Blood Disorders: No Hx Human Immunodeficiency Virus (HIV): No - INTEGUMENTARY Hx Dermatological Problems: No - MUSCULOSKELETAL/RHEUMATOLOGICAL Hx Musculoskeletal Disorders: Yes Hx Falls: Yes Hx Fractures: Yes - GASTROINTESTINAL Hx Gastrointestinal Disorders: No - GENITOURINARY/GYNECOLOGICAL Hx Genitourinary Disorders: No Hx Sexually Transmitted Disorders: No - PSYCHIATRIC Hx Psychophysiologic Disorder: No Hx Anxiety: No Hx Bipolar Disorder: No Hx Depression: No Hx Schizophrenia: No Hx Substance Use: Yes (use of cocaine one time) - SURGICAL HISTORY Hx Surgeries: Yes - ANESTHESIA Hx Anesthesia: Yes Hx Anesthesia Reactions: No Meds Allergies/Adverse Reactions: Allergies Allergy/AdvReac Type Severity Reaction Status Date / Time No Known Allergies Allergy Verified 05/30/16 09:21 - Medications Medications: Current Medications Octreotide Acetate 1,250 mcg/ (Sodium Chloride) 252.5 mls @ 10.1 mls/hr IV .Q24H LUNA; 50 MCG/HR PRN Reason: Protocol Last Admin: 07/15/17 22:43 Dose: 10.1 mls/hr Pantoprazole Sodium 40 mg/ (Sodium Chloride) 100 mls @ 20 mls/hr IVPB Q5H LUNA PRN Reason: 8 MG/HR Last Admin: 07/16/17 03:45 Dose: 20 mls/hr Lactated Ringer's (Lactated Ringer's) 1,000 mls @ 125 mls/hr IV .Q8H LUNA Lorazepam (Ativan) 1 mg IVP Q4H PRN PRN Reason: Agitation Ondansetron HCl (Zofran Inj) 4 mg IVP Q4 PRN PRN Reason: Nausea/Vomiting Thiamine HCl (Vitamin B1 Inj) 100 mg IM DAILY LUNA Physical Exam - Constitutional Appears: Toxic, Unkempt, Confused - Head Exam Head Exam: ATRAUMATIC, NORMAL INSPECTION, NORMOCEPHALIC - Eye Exam Eye Exam: EOMI, Normal appearance, PERRL - ENT Exam ENT Exam: Mucous Membranes Dry - Respiratory Exam Respiratory Exam: Clear to Auscultation Bilateral, NORMAL BREATHING PATTERN - Cardiovascular Exam Cardiovascular Exam: Tachycardia, REGULAR RHYTHM - GI/Abdominal Exam GI & Abdominal Exam: Normal Bowel Sounds, Soft. absent: Distended, Guarding, Organomegaly, Tenderness - Rectal Exam Rectal Exam: NORMAL INSPECTION Additional comments: dark brown green stool no melena or hematochezia - Extremities Exam Extremities exam: Positive for: full ROM, normal inspection. Negative for: pedal edema - Back Exam Back exam: NORMAL INSPECTION - Neurological Exam Neurological exam: Alert - Psychiatric Exam Psychiatric exam: Agitated, Anxious, Flat Affect - Skin Skin Exam: Dry, Intact, Warm Results - Vital Signs Recent Vital Signs: Last Vital Signs Temp 98.9 F 07/16/17 03:55 Pulse 92 H 07/16/17 07:26 Resp 12 07/16/17 07:26 BP 115/73 07/16/17 07:26 Pulse Ox 99 07/16/17 07:26 - Labs Result Diagrams: 07/16/17 08:00 07/16/17 08:34 Labs: Laboratory Results - last 24 hr 07/15/17 07/15/17 07/15/17 18:56 19:12 19:12 WBC RBC Hgb Hct MCV MCH MCHC RDW Plt Count MPV Neut % (Auto) Lymph % (Auto) [place] % (Auto) Eos % (Auto) Baso % (Auto) Neut # (Auto) Lymph # (Auto) [place] # (Auto) Eos # (Auto) Baso # (Auto) PT INR APTT pO2 VBG pH VBG pCO2 VBG HCO3 VBG Total CO2 VBG O2 Sat (Calc) VBG Base Excess VBG Potassium Glucose Lactate FiO2 Crit Value Called To Crit Value Called By Crit Value Read Back Blood Gas Notified Time Sodium 140 Potassium 3.2 L Chloride 97 L Carbon Dioxide 23 Anion Gap 23 H BUN 16 Creatinine 0.7 L Est GFR ( Amer) > 60 Est GFR (Non-Af Amer) > 60 POC Glucose (mg/dL) 123 H Random Glucose 131 H Calcium 8.6 Phosphorus 3.0 Magnesium 2.1 Total Bilirubin 0.4 AST 40 ALT 35 Alkaline Phosphatase 68 Ammonia 17 Total Protein 7.8 Albumin 4.0 Globulin 3.7 Albumin/Globulin Ratio 1.1 Lipase 206 Venous Blood Potassium Urine Opiates Screen Urine Methadone Screen Ur Barbiturates Screen Ur Phencyclidine Scrn Ur Amphetamines Screen U Benzodiazepines Scrn U Oth Cocaine Metabols U Cannabinoids Screen Alcohol, Quantitative 249 H Blood Type Blood Type Confirm Antibody Screen Crossmatch BBK History Checked 07/15/17 07/15/17 07/15/17 19:12 19:12 19:14 WBC 15.2 H D RBC 4.85 Hgb 11.7 L Hct 37.2 MCV 76.7 L D MCH 24.2 L MCHC 31.6 L RDW 17.2 H Plt Count 248 D MPV 9.0 Neut % (Auto) 74.7 Lymph % (Auto) 19.6 L [place] % (Auto) 5.3 Eos % (Auto) 0.1 Baso % (Auto) 0.3 Neut # (Auto) 11.4 H Lymph # (Auto) 3.0 [place] # (Auto) 0.8 Eos # (Auto) 0.0 Baso # (Auto) 0.0 PT 11.5 INR 1.0 APTT 28.5 pO2 VBG pH VBG pCO2 VBG HCO3 VBG Total CO2 VBG O2 Sat (Calc) VBG Base Excess VBG Potassium Glucose Lactate FiO2 Crit Value Called To Crit Value Called By Crit Value Read Back Blood Gas Notified Time Sodium Potassium Chloride Carbon Dioxide Anion Gap BUN Creatinine Est GFR ( Amer) Est GFR (Non-Af Amer) POC Glucose (mg/dL) Random Glucose Calcium Phosphorus Magnesium Total Bilirubin AST ALT Alkaline Phosphatase Ammonia Total Protein Albumin Globulin Albumin/Globulin Ratio Lipase Venous Blood Potassium Urine Opiates Screen Urine Methadone Screen Ur Barbiturates Screen Ur Phencyclidine Scrn Ur Amphetamines Screen U Benzodiazepines Scrn U Oth Cocaine Metabols U Cannabinoids Screen Alcohol, Quantitative Blood Type A POSITIVE Blood Type Confirm Antibody Screen Negative Crossmatch See Detail BBK History Checked No verified bt 07/15/17 07/15/17 07/15/17 19:30 21:11 21:45 WBC RBC Hgb Hct MCV MCH MCHC RDW Plt Count MPV Neut % (Auto) Lymph % (Auto) [place] % (Auto) Eos % (Auto) Baso % (Auto) Neut # (Auto) Lymph # (Auto) [place] # (Auto) Eos # (Auto) Baso # (Auto) PT INR APTT pO2 54 VBG pH 7.45 H VBG pCO2 35 L VBG HCO3 25.3 VBG Total CO2 25.4 VBG O2 Sat (Calc) 95.6 H VBG Base Excess 0.7 VBG Potassium 2.9 L Glucose 125 H Lactate 4.4 H* FiO2 21.0 Crit Value Called To Emilee rosas Crit Value Called By 23 Crit Value Read Back Y Blood Gas Notified Time 1934 Sodium 137.0 Potassium Chloride 105.0 Carbon Dioxide Anion Gap BUN Creatinine Est GFR ( Amer) Est GFR (Non-Af Amer) POC Glucose (mg/dL) 118 H Random Glucose Calcium Phosphorus Magnesium Total Bilirubin AST ALT Alkaline Phosphatase Ammonia Total Protein Albumin Globulin Albumin/Globulin Ratio Lipase Venous Blood Potassium 2.9 L Urine Opiates Screen Urine Methadone Screen Ur Barbiturates Screen Ur Phencyclidine Scrn Ur Amphetamines Screen U Benzodiazepines Scrn U Oth Cocaine Metabols U Cannabinoids Screen Alcohol, Quantitative Blood Type Blood Type Confirm A POSITIVE Antibody Screen Crossmatch BBK History Checked 07/15/17 07/15/17 21:50 23:54 WBC RBC Hgb Hct MCV MCH MCHC RDW Plt Count MPV Neut % (Auto) Lymph % (Auto) [place] % (Auto) Eos % (Auto) Baso % (Auto) Neut # (Auto) Lymph # (Auto) [place] # (Auto) Eos # (Auto) Baso # (Auto) PT INR APTT pO2 VBG pH VBG pCO2 VBG HCO3 VBG Total CO2 VBG O2 Sat (Calc) VBG Base Excess VBG Potassium Glucose Lactate FiO2 Crit Value Called To Crit Value Called By Crit Value Read Back Blood Gas Notified Time Sodium Potassium Chloride Carbon Dioxide Anion Gap BUN Creatinine Est GFR ( Amer) Est GFR (Non-Af Amer) POC Glucose (mg/dL) 128 H Random Glucose Calcium Phosphorus Magnesium Total Bilirubin AST ALT Alkaline Phosphatase Ammonia Total Protein Albumin Globulin Albumin/Globulin Ratio Lipase Venous Blood Potassium Urine Opiates Screen Negative Urine Methadone Screen Negative Ur Barbiturates Screen Negative Ur Phencyclidine Scrn Negative Ur Amphetamines Screen Negative U Benzodiazepines Scrn Negative U Oth Cocaine Metabols Negative U Cannabinoids Screen Negative Alcohol, Quantitative Blood Type Blood Type Confirm Antibody Screen Crossmatch BBK History Checked Assessment & Plan - Assessment and Plan (Free Text) Assessment: This is a 32yM with pmhx of Schizophrenia, HTN, and alcohol abuse presenting for vomiting and hematemesis. 1. Hematemsis-ddx Shirley Bello tear, esophagitis, gastritis, PUD, variceal bleed 2. Alcohol abuse/intoxication/withdrawal 3. Schizophrenia Plan: -Continue supportive care with anti-emetics -IVF hydration with LR@ 125cc/hr -H/H stable, monitor labs and transfuse as needed -No active GI bleeding at this time, rectal exam negative for melena or hematemesis, BUN wnl -No signs of cirrhosis with INR, Plt wnl, recent Abs US 06/13 with fatty infiltrate no cirrhosis changes, less concerned for varcieal bleed, maybe secondary to Shirley bello tear with binge drinking followed by vomiting -Will monitor today and if continued hematemesis or coffee ground will plan for EGD tomorrow -Continue IV PPI drip -Discontinue Octreotide drip -NPO for now -Will continue to follow closely <GregorioGlobarbra - Last Filed: 07/16/17 20:14> Meds - Medications Medications: Current Medications Pantoprazole Sodium 40 mg/ (Sodium Chloride) 100 mls @ 20 mls/hr IVPB Q5H LUNA PRN Reason: 8 MG/HR Last Admin: 07/16/17 20:06 Dose: 20 mls/hr Lactated Ringer's (Lactated Ringer's) 1,000 mls @ 125 mls/hr IV .Q8H LUNA Last Admin: 07/16/17 17:02 Dose: 125 mls/hr Lorazepam (Ativan) 1 mg IVP Q4H PRN PRN Reason: Agitation Ondansetron HCl (Zofran Inj) 4 mg IVP Q4 PRN PRN Reason: Nausea/Vomiting Last Admin: 07/16/17 12:40 Dose: 4 mg Thiamine HCl (Vitamin B1 Inj) 100 mg IM DAILY [facility] Last Admin: 07/16/17 09:26 Dose: 100 mg Results - Vital Signs Recent Vital Signs: Last Vital Signs Temp 99.0 F 07/16/17 16:00 Pulse 82 07/16/17 17:00 Resp 18 07/16/17 17:00 BP 145/85 07/16/17 17:00 Pulse Ox 98 07/16/17 17:00 - Labs Result Diagrams: 07/16/17 08:00 07/16/17 08:34 Labs: Laboratory Results - last 24 hr 07/15/17 07/15/17 07/15/17 19:12 19:14 21:11 WBC 15.2 H D RBC 4.85 Hgb 11.7 L Hct 37.2 MCV 76.7 L D MCH 24.2 L MCHC 31.6 L RDW 17.2 H Plt Count 248 D MPV 9.0 Neut % (Auto) 74.7 Lymph % (Auto) 19.6 L [place] % (Auto) 5.3 Eos % (Auto) 0.1 Baso % (Auto) 0.3 Neut # (Auto) 11.4 H Lymph # (Auto) 3.0 [place] # (Auto) 0.8 Eos # (Auto) 0.0 Baso # (Auto) 0.0 PT INR Sodium Potassium Chloride Carbon Dioxide Anion Gap BUN Creatinine Est GFR ( Amer) Est GFR (Non-Af Amer) POC Glucose (mg/dL) 118 H Random Glucose Lactic Acid Calcium Total Bilirubin AST ALT Alkaline Phosphatase Total Protein Albumin Globulin Albumin/Globulin Ratio Urine Opiates Screen Urine Methadone Screen Ur Barbiturates Screen Ur Phencyclidine Scrn Ur Amphetamines Screen U Benzodiazepines Scrn U Oth Cocaine Metabols U Cannabinoids Screen Blood Type A POSITIVE Blood Type Confirm Antibody Screen Negative Crossmatch See Detail BBK History Checked No verified bt 07/15/17 07/15/17 07/15/17 21:45 21:50 23:54 WBC RBC Hgb Hct MCV MCH MCHC RDW Plt Count MPV Neut % (Auto) Lymph % (Auto) [place] % (Auto) Eos % (Auto) Baso % (Auto) Neut # (Auto) Lymph # (Auto) [place] # (Auto) Eos # (Auto) Baso # (Auto) PT INR Sodium Potassium Chloride Carbon Dioxide Anion Gap BUN Creatinine Est GFR ( Amer) Est GFR (Non-Af Amer) POC Glucose (mg/dL) 128 H Random Glucose Lactic Acid Calcium Total Bilirubin AST ALT Alkaline Phosphatase Total Protein Albumin Globulin Albumin/Globulin Ratio Urine Opiates Screen Negative Urine Methadone Screen Negative Ur Barbiturates Screen Negative Ur Phencyclidine Scrn Negative Ur Amphetamines Screen Negative U Benzodiazepines Scrn Negative U Oth Cocaine Metabols Negative U Cannabinoids Screen Negative Blood Type Blood Type Confirm A POSITIVE Antibody Screen Crossmatch BBK History Checked 07/16/17 07/16/17 07/16/17 08:00 08:34 08:34 WBC 10.1 RBC 3.95 L Hgb 10.2 L Hct 30.4 L MCV 76.9 L MCH 25.8 L MCHC 33.5 RDW 17.1 H Plt Count 160 MPV 8.9 Neut % (Auto) 75.3 H Lymph % (Auto) 17.0 L [place] % (Auto) 6.3 Eos % (Auto) 1.0 Baso % (Auto) 0.4 Neut # (Auto) 7.6 H Lymph # (Auto) 1.7 [place] # (Auto) 0.6 Eos # (Auto) 0.1 Baso # (Auto) 0.0 PT 11.9 INR 1.1 Sodium 139 Potassium 4.3 Chloride 102 Carbon Dioxide 26 Anion Gap 15 BUN 12 Creatinine 0.6 L Est GFR ( Amer) > 60 Est GFR (Non-Af Amer) > 60 POC Glucose (mg/dL) Random Glucose 145 H Lactic Acid Calcium 7.8 L Total Bilirubin 1.0 AST 41 ALT 26 Alkaline Phosphatase 46 Total Protein 6.4 Albumin 3.2 L Globulin 3.2 Albumin/Globulin Ratio 1.0 Urine Opiates Screen Urine Methadone Screen Ur Barbiturates Screen Ur Phencyclidine Scrn Ur Amphetamines Screen U Benzodiazepines Scrn U Oth Cocaine Metabols U Cannabinoids Screen Blood Type Blood Type Confirm Antibody Screen Crossmatch BBK History Checked 07/16/17 07/16/17 07/16/17 08:46 16:39 16:50 WBC RBC Hgb Hct MCV MCH MCHC RDW Plt Count MPV Neut % (Auto) Lymph % (Auto) [place] % (Auto) Eos % (Auto) Baso % (Auto) Neut # (Auto) Lymph # (Auto) [place] # (Auto) Eos # (Auto) Baso # (Auto) PT INR Sodium Potassium Chloride Carbon Dioxide Anion Gap BUN Creatinine Est GFR ( Amer) Est GFR (Non-Af Amer) POC Glucose (mg/dL) 117 H 113 H Random Glucose Lactic Acid 1.4 Calcium Total Bilirubin AST ALT Alkaline Phosphatase Total Protein Albumin Globulin Albumin/Globulin Ratio Urine Opiates Screen Urine Methadone Screen Ur Barbiturates Screen Ur Phencyclidine Scrn Ur Amphetamines Screen U Benzodiazepines Scrn U Oth Cocaine Metabols U Cannabinoids Screen Blood Type Blood Type Confirm Antibody Screen Crossmatch BBK History Checked Attending/Attestation - Attestation I have personally seen and examined this patient.: Yes I have fully participated in the care of the patient.: Yes I have reviewed all pertinent clinical information: Yes Notes (Text): 07/16/17 20:08 Patient seen at bedside. This is a 32 yr old M with pmhx of Schizophrenia, HTN, and alcohol abuse presenting for vomiting and hematemesis. No episodes since admission. No active GIB noted with baseline Hb/Hct of last year. No s/s of portal HTN hence does not require octreotide. Will continue PPI gtt and keep NPO. If significantly drops Hb or has bleeding episode then will plan on EGD in am. Discussed with nursing staff in ICU. Alcohol cessation and alcohol withdrawal protocol
[2017-07-16 08:54] LABS: INR 1.1 (0.9-1.2); PROTHROMBIN TIME 11.9 Seconds (9.8-13.1)
--- NOTE | 2017-07-16 09:02 | RAD ---
HISTORY: Tachycardia COMPARISON: No prior. FINDINGS: LUNGS: The lungs are well inflated and clear. PLEURA: No significant pleural effusion identified, no pneumothorax apparent. CARDIOVASCULAR: Normal. OSSEOUS STRUCTURES: No significant abnormalities. VISUALIZED UPPER ABDOMEN: Normal. OTHER FINDINGS: None. IMPRESSION: No active pulmonary disease.
[2017-07-16] MEDS: Lactated Ringer's 1,000 ML IV SCH ×2 (09:08→17:02)
[2017-07-16 09:20] LABS: BASO % 0.4 % (0.0-2.0); EOS # 0.1 K/uL (0.0-0.7); HEMOGLOBIN 10.2 g/dL (12.0-18.0); LYMPH # 1.7 K/uL (1.0-4.3); MEAN CELL VOLUME 76.9 fl (80.0-94.0); MEAN CORPUSCULAR HEMOGLOBIN 25.8 pg (27.0-31.0); MEAN CORPUSCULAR HGB CONC 33.5 g/dL (33.0-37.0); MEAN PLATELET VOLUME 8.9 fl (7.2-11.7); MONO # 0.6 K/uL (0.0-0.8); MONO % 6.3 % (0.0-10.0); NEUT # 7.6 K/uL (1.8-7.0); NEUT % 75.3 % (50.0-75.0); NRBC % 0.2 % (0.0-0.0); RBC 3.95 Mil/uL (4.40-5.90); RED CELL DISTRIBUTION WIDTH 17.1 % (11.5-14.5); WHITE BLOOD COUNT 10.1 K/uL (4.8-10.8)
[2017-07-16 09:25] LABS: ALBUMIN 3.2 g/dL (3.5-5.0); ALT/SGPT 26 U/L (21-72); AST/SGOT 41 U/L (17-59); BLOOD UREA NITROGEN 12 mg/dl (9-20); CALCIUM 7.8 mg/dL (8.4-10.2); GFR AFRICAN-AMERICAN > 60; GFR NON-AFRICAN AMERICAN > 60
[2017-07-16] MEDS ORDERED: Thiamine 100 mg/ml Inj ONE (09:25)
[2017-07-16] MEDS: Thiamine 100 mg/ml Inj IM SCH (09:26)
--- NOTE | 2017-07-16 21:47 | CARD ---
APPROVED REPORT EKG Measurement Heart [id number] <Conclusion> Sinus tachycardia Otherwise normal ECG
[2017-07-17] MEDS: Lactated Ringer's 1,000 ML IV SCH ×2 (01:31→20:24)
[2017-07-17] MEDS: Pantoprazole 40 MG in Sodium Chloride 0.9% 100 ML IVPB SCH ×2 (01:32→06:01)
[2017-07-17 05:16] LABS: HEMOGLOBIN 10.6 g/dL (12.0-18.0); MEAN CELL VOLUME 78.5 fl (80.0-94.0); MEAN CORPUSCULAR HEMOGLOBIN 25.1 pg (27.0-31.0); RBC 4.24 Mil/uL (4.40-5.90); RED CELL DISTRIBUTION WIDTH 17.1 % (11.5-14.5); WHITE BLOOD COUNT 8.5 K/uL (4.8-10.8)
[2017-07-17 05:38] LABS: ALB/GLOB RATIO 1.1 (1.0-2.1); ALBUMIN 3.4 g/dL (3.5-5.0); ALT/SGPT 38 U/L (21-72); AST/SGOT 41 U/L (17-59); BLOOD UREA NITROGEN 8 mg/dl (9-20); CALCIUM 8.4 mg/dL (8.4-10.2); GFR AFRICAN-AMERICAN > 60; GFR NON-AFRICAN AMERICAN > 60
[2017-07-17] MEDS ORDERED: Pneumococcal 23-Valent Vaccine IM ONE (06:49)
--- NOTE | 2017-07-17 07:46 | CP.PCM.PN ---
<Cathy White - Last Filed: 07/17/17 12:29> Subjective - Date & Time of Evaluation Date of Evaluation: 07/17/17 Time of Evaluation: 07:45 - Subjective Subjective: GI Fellow PGY4 Progress Note Pt seen and evaluated at bedside, pt doing okay overnight, per nursing no more episodes of nausea or vomiting, no hematemesis. Pt had one green BM overnight. ROS: A 12pt ROS was negative except as above. Objective - Vital Signs/Intake and Output Vital Signs (last 24 hours): Temp Pulse Resp BP Pulse Ox 98.2 F 74 17 140/95 H 98 07/17/17 04:00 07/17/17 06:00 07/17/17 06:00 07/17/17 06:00 07/17/17 06:00 Intake and Output: 07/17/17 07/17/17 06:59 18:59 Intake Total 1820 Output Total 1300 Balance 520 - Medications Medications: Current Medications Pantoprazole Sodium 40 mg/ (Sodium Chloride) 100 mls @ 20 mls/hr IVPB Q5H LUNA PRN Reason: 8 MG/HR Last Admin: 07/17/17 06:01 Dose: 20 mls/hr Lactated Ringer's (Lactated Ringer's) 1,000 mls @ 125 mls/hr IV .Q8H LUNA Last Admin: 07/17/17 01:31 Dose: 125 mls/hr Lorazepam (Ativan) 1 mg IVP Q4H PRN PRN Reason: Agitation Last Admin: 07/16/17 23:35 Dose: 1 mg Ondansetron HCl (Zofran Inj) 4 mg IVP Q4 PRN PRN Reason: Nausea/Vomiting Last Admin: 07/16/17 12:40 Dose: 4 mg Thiamine HCl (Vitamin B1 Inj) 100 mg IM DAILY [facility]NA Last Admin: 07/16/17 09:26 Dose: 100 mg - Labs Labs: 07/17/17 04:30 07/17/17 04:30 PT 11.9 Seconds (9.8-13.1) 07/16/17 08:34 INR 1.1 (0.9-1.2) 07/16/17 08:34 APTT 28.5 Seconds (25.6-37.1) 07/15/17 19:12 - Constitutional Appears: Non-toxic, No Acute Distress - Head Exam Head Exam: ATRAUMATIC, NORMAL INSPECTION, NORMOCEPHALIC - Eye Exam Eye Exam: EOMI, Normal appearance, PERRL - ENT Exam ENT Exam: Mucous Membranes Dry - Neck Exam Neck Exam: Full ROM - Respiratory Exam Respiratory Exam: Clear to Ausculation Bilateral, NORMAL BREATHING PATTERN - Cardiovascular Exam Cardiovascular Exam: REGULAR RHYTHM, RRR - GI/Abdominal Exam GI & Abdominal Exam: Soft, Normal Bowel Sounds. absent: Distended, Tenderness, Organomegaly - Extremities Exam Extremities Exam: Normal Inspection - Back Exam Back Exam: NORMAL INSPECTION - Neurological Exam Neurological Exam: Alert, Awake, Oriented x3 - Psychiatric Exam Psychiatric exam: Normal Affect, Normal Mood - Skin Skin Exam: Dry, Intact, Normal Color, Warm Assessment and Plan - Assessment and Plan (Free Text) Assessment: This is a 32yM with pmhx of Schizophrenia, HTN, and alcohol abuse presenting for vomiting and hematemesis. 1. Hematemsis-ddx Shirley Bello tear, esophagitis, gastritis, PUD, variceal bleed 2. Alcohol abuse/intoxication/withdrawal 3. Schizophrenia Plan: -Continue supportive care with anti-emetics -IVF hydration -H/H stable, monitor labs and transfuse as needed -No active GI bleeding at this time, BUN wnl -No signs of cirrhosis with INR, Plt wnl, recent Abs US 06/13 with fatty infiltrate no cirrhosis changes, less concerned for varcieal bleed, maybe secondary to Shirley bello tear with binge drinking followed by vomiting -No plan for EGD today -Continue IV PPI drip -Advance to clear liquid diet -Will continue to follow closely <Agnes Perkins - Last Filed: 07/17/17 12:32> Objective - Vital Signs/Intake and Output Vital Signs (last 24 hours): Temp Pulse Resp BP Pulse Ox 97.8 F 98 H 16 124/104 H 98 07/17/17 12:00 07/17/17 12:00 07/17/17 12:00 07/17/17 12:00 07/17/17 12:00 Intake and Output: 07/17/17 07/17/17 06:59 18:59 Intake Total 1820 865 Output Total 1300 700 Balance 520 165 - Medications Medications: Current Medications Amlodipine Besylate (Norvasc) 5 mg PO DAILY [facility]NA Chlordiazepoxide (Librium) 25 mg PO Q6 [facility] Last Admin: 07/17/17 12:22 Dose: 25 mg Lactated Ringer's (Lactated Ringer's) 1,000 mls @ 125 mls/hr IV .Q8H [facility] Last Admin: 07/17/17 01:31 Dose: 125 mls/hr Lorazepam (Ativan) 1 mg IVP Q4H PRN PRN Reason: Agitation Last Admin: 07/16/17 23:35 Dose: 1 mg Ondansetron HCl (Zofran Inj) 4 mg IVP Q4 PRN PRN Reason: Nausea/Vomiting Last Admin: 07/16/17 12:40 Dose: 4 mg Pantoprazole Sodium (Protonix Ec Tab) 40 mg PO DAILY [facility] Risperidone (Risperdal Tab) 2 mg PO Q12 [facility] Thiamine HCl (Vitamin B1 Inj) 100 mg IM DAILY [facility] Last Admin: 07/17/17 08:19 Dose: 100 mg - Labs Labs: 07/17/17 04:30 07/17/17 04:30 PT 11.9 Seconds (9.8-13.1) 07/16/17 08:34 INR 1.1 (0.9-1.2) 07/16/17 08:34 APTT 28.5 Seconds (25.6-37.1) 07/15/17 19:12 Attending/Attestation - Attestation I have personally seen and examined this patient.: Yes I have fully participated in the care of the patient.: Yes I have reviewed all pertinent clinical information, including history, physical exam and plan: Yes Notes (Text): 07/17/17 12:30 Patient seen at bedside. This is a 32 yr old M with pmhx of Schizophrenia, HTN, and alcohol abuse presenting for vomiting and hematemesis which has resolved since past 48 hours. No episodes since admission. No active GIB noted with baseline Hb/Hct of last year. No s/s of portal HTN hence does not require octreotide. Will transition PPI gtt to po and start full liquid diet. No cxurrent indication for upper endoscopy. If significantly drops Hb or has bleeding episode then will plan on EGD as inpatient. Discussed with attending. Alcohol cessation and alcohol withdrawal protocol
[2017-07-17] MEDS: Thiamine 100 mg/ml Inj IM SCH (08:19)
--- NOTE | 2017-07-17 11:53 | CP.PCM.PN ---
Subjective - Date & Time of Evaluation Date of Evaluation: 07/17/17 Time of Evaluation: 11:45 - Subjective Subjective: No further melena nor hematemesis has some abd discomfort denies CP no SOB no cough no fever Objective - Vital Signs/Intake and Output Vital Signs (last 24 hours): Temp Pulse Resp BP Pulse Ox 98.4 F 74 20 147/92 H 99 07/17/17 08:00 07/17/17 10:00 07/17/17 10:00 07/17/17 10:00 07/17/17 10:00 Intake and Output: 07/17/17 07/17/17 06:59 18:59 Intake Total 1820 375 Output Total 1300 300 Balance 520 75 - Medications Medications: Current Medications Lactated Ringer's (Lactated Ringer's) 1,000 mls @ 125 mls/hr IV .Q8H [facility] Last Admin: 07/17/17 01:31 Dose: 125 mls/hr Lorazepam (Ativan) 1 mg IVP Q4H PRN PRN Reason: Agitation Last Admin: 07/16/17 23:35 Dose: 1 mg Ondansetron HCl (Zofran Inj) 4 mg IVP Q4 PRN PRN Reason: Nausea/Vomiting Last Admin: 07/16/17 12:40 Dose: 4 mg Pantoprazole Sodium (Protonix Ec Tab) 40 mg PO DAILY [facility] Thiamine HCl (Vitamin B1 Inj) 100 mg IM DAILY [facility] Last Admin: 07/17/17 08:19 Dose: 100 mg - Labs Labs: 07/17/17 04:30 07/17/17 04:30 PT 11.9 Seconds (9.8-13.1) 07/16/17 08:34 INR 1.1 (0.9-1.2) 07/16/17 08:34 APTT 28.5 Seconds (25.6-37.1) 07/15/17 19:12 - Constitutional Appears: No Acute Distress - Head Exam Head Exam: NORMAL INSPECTION, NORMOCEPHALIC - Eye Exam Eye Exam: EOMI, Normal appearance, PERRL Pupil Exam: NORMAL ACCOMODATION - ENT Exam ENT Exam: Mucous Membranes Dry, Normal External Ear Exam - Neck Exam Neck Exam: Full ROM. absent: Meningismus - Respiratory Exam Respiratory Exam: NORMAL BREATHING PATTERN. absent: Rales, Wheezes, Respiratory Distress - Cardiovascular Exam Cardiovascular Exam: REGULAR RHYTHM, +S1, +S2 - GI/Abdominal Exam GI & Abdominal Exam: Soft, Normal Bowel Sounds. absent: Tenderness - Extremities Exam Extremities Exam: Full ROM, Normal Capillary Refill. absent: Calf Tenderness - Back Exam Back Exam: Full ROM. absent: CVA tenderness (L), CVA tenderness (R) - Neurological Exam Neurological Exam: Alert, Awake, CN II-XII Intact, Oriented x3 Neuro motor strength exam: Left Upper Extremity: 5, Right Upper Extremity: 5, Left Lower Extremity: 5, Right Lower Extremity: 5 - Psychiatric Exam Psychiatric exam: Normal Affect, Normal Mood - Skin Skin Exam: Dry, Normal Color, Warm Assessment and Plan - Assessment and Plan (Free Text) Assessment: 32 years old male with hx of HTN, DM II, Schizophrenia, Alcohol Abuse and GI bleed came to ER with Hematemesis after binge drinking ,associated with rectal bleeding, abdominal pain and SOB. He had been drinking on the night before this admission. He states that stopped drinking recently but started again. Cocaine use 1 week ago. Multiple episodes of hematemesis noted in ER with melena. He was started on IVF , PPI drip and Octreotide. No more bleeding episode since yesterday Admitted in ICU for close monitoring 1. Upper GI Bleed probably secondary to rupture Esophageal varices vs Hemorrhagic Gastritis vs PUD vs Shirley Bello tear Gi consulted, discussed case with Dr Perkins- plan for EGD as outpt, may do EGD inpatient if patient has any signs of continuous GI bleed d/c Protonix drip - changed to PO D/c octreotide drip Continue IVF Monitor H&H ( Hgb 10 ) Upgrade diet to Clear Liquid 2. Anemia Secondary to acute blood loss Hgb 10 Continue monitoring Pt was transfused 1unit PRBC in the ED 3.Alcohol Intoxication/impending DT-s/Alcohol dependence Seizure/ withdrawal precautions Ativan PRN for withdrawal start Librium RTC Continue Thiamine , folic acid and MVI IV and IVF 4. Hypokalemia Replaced with KCl 5. DM type II Accuchecks and insulin coverage check Hgb A1c 6. Hypertension restart Norvasc 7. Schizophrenia? restart Risperdal 8. DVT prophylaxis SCD
--- NOTE | 2017-07-17 16:21 | CP.CCUPN ---
CCU Subjective - Physician Review Events Since Last Encounter (Free Text): 07/17/17 15:49 The patient was Seen/interviewed and examined by me at the bedside during ICU round, Medical records reviewed and Management issues were discussed and formulated with the house staff. Events reviewed 32 Years old Male with PMHx of Alcohol Abuse age of 12years, HTN, DM II, Schizophrenia; Fracture right humeral great tuberosity; Right foot Metartarsal fracture and GI bleed. Who presented to the Emergency department on 07/05 with complaint of abdominal Pain, vomiting Blood from the previous night associated with rectal bleeding and SOB. He had been drinking on the night before this admission. He stated that he had a similar event last year and was treated at the [facility], underwent Endoscopy but does not remember the Results. Patient was transfused one unit packed RBC in the ER Patient was started on Octreotide & Pantoprazole drips and admitted to the ICU for acute upper GI Bleed and Alcohol Intoxication This morning he feels well and is hemodynamically stable, denies any chest pain or SOB and the plan is to transfer out of the ICU. This morning labs revealed stable H/H 10.2/30-->10.6/33, No active evidence of GI bleeding Pantoprazole drip Switch to PO BID Started on clear liquid, tolerating and planning to advance diet as tolerated CCU Objective - Vital Signs / Intake & Output Vital Signs (Last 4 hours): Vital Signs Temp Pulse Resp BP Pulse Ox 07/17/17 14:00 109 H 14 142/92 H 99 07/17/17 12:00 97.8 F 98 H 16 124/104 H 98 Intake and Output (Last 8hrs): Intake & Output 07/17/17 07/17/17 07/17/17 06:59 14:59 22:59 Intake Total 1200 1715 Output Total 600 700 Balance 600 1015 Intake: IV 1200 875 Oral 840 Output: Urine 600 700 Urine, Voided 600 700 Other: # Voids Urine, Voided 1 - Physical Exam Head: Positive for: Atraumatic, Normocephalic Pupils: Positive for: PERRL. Negative for: Sluggish, Non-Reactive, Pinpoint Extroacular Muscles: Positive for: EOMI Conjunctiva: Positive for: Normal. Negative for: Injected, Icteric Ears: Positive for: Normal Mouth: Positive for: Moist Mucous Membranes Pharnyx: Positive for: Normal Neck: Positive for: Normal Range of Motion, Trachea Midline. Negative for: Meningeal Signs, MIDLINE TENDERNESS, Paraspinal Tenderness, JVD, Lymphadenopathy , Bruit, Other Respiratory/Chest: Positive for: Clear to Auscultation, Good Air Exchange. Negative for: Respiratory Distress, Accessory Muscle Use, Wheezes, Decreased Breath Sounds, Rales Cardiovascular: Positive for: Regular Rate and Rhythm, Normal S1, S2, Peripheal Pulses Present. Negative for: Murmurs, Irregular Rhythm Abdomen: Positive for: Normal Bowel Sounds. Negative for: Tenderness, Distention, Peritoneal Signs Neurological: Positive for: GCS=15, CN II-XII Intact, Speech Normal Psychiatric: Positive for: Alert, Oriented x 3 - Medications Active Medications: Active Medications Generic Name Dose Route Start Last Admin Trade Name Freq PRN Reason Stop Dose Admin Amlodipine Besylate 5 mg 07/18/17 09:00 Norvasc PO DAILY [facility] Chlordiazepoxide 25 mg 07/17/17 12:15 07/17/17 12:22 Librium PO 25 mg Q6 [facility] Administration Lactated Ringer's 1,000 mls @ 125 mls/hr 07/16/17 07:15 07/17/17 01:31 Lactated Ringer's IV 125 mls/hr .Q8H [facility] Administration Lorazepam 1 mg 07/15/17 23:36 07/16/17 23:35 Ativan IVP 1 mg Q4H PRN Administration Agitation Ondansetron HCl 4 mg 07/15/17 23:03 07/16/17 12:40 Zofran Inj IVP 4 mg Q4 PRN Administration Nausea/Vomiting Pantoprazole Sodium 40 mg 07/18/17 09:00 Protonix Ec Tab PO DAILY [facility] Risperidone 2 mg 07/17/17 12:15 07/17/17 13:42 Risperdal Tab PO 2 mg Q12 [facility] Administration Thiamine HCl 100 mg 07/16/17 09:00 07/17/17 08:19 Vitamin B1 Inj IM 100 mg DAILY [facility] Administration - Patient Studies Lab Studies: Microbiology Studies 07/15/17 19:18 Blood Culture - Preliminary Blood NO GROWTH AFTER 24 HOURS 07/15/17 19:18 Blood Culture - Preliminary Blood NO GROWTH AFTER 24 HOURS Lab Studies 07/17/17 07/17/17 07/17/17 Range/Units 11:17 08:27 06:05 WBC (4.8-10.8) K/uL RBC (4.40-5.90) Mil/uL Hgb (12.0-18.0) g/dL Hct (35.0-51.0) % MCV (80.0-94.0) fl MCH (27.0-31.0) pg MCHC (33.0-37.0) g/dL RDW (11.5-14.5) % Plt Count (130-400) K/uL Sodium (132-148) mmol/l Potassium (3.6-5.0) MMOL/L Chloride (98-107) mmol/L Carbon Dioxide (22-30) mmol/L Anion Gap (10-20) BUN (9-20) mg/dl Creatinine (0.8-1.5) mg/dl Est GFR ( Amer) Est GFR (Non-Af Amer) POC Glucose (mg/dL) 103 103 103 (65-110) mg/dL Random Glucose (75-110) mg/dL Lactic Acid (0.7-2.1) MMOL/L Calcium (8.4-10.2) mg/dL Total Bilirubin (0.2-1.3) mg/dl AST (17-59) U/L ALT (21-72) U/L Alkaline Phosphatase (38-126) U/L Total Protein (6.3-8.2) G/DL Albumin (3.5-5.0) g/dL Globulin (2.2-3.9) gm/dL Albumin/Globulin Ratio (1.0-2.1) 07/17/17 07/17/17 07/16/17 Range/Units 04:30 04:30 21:14 WBC 8.5 (4.8-10.8) K/uL RBC 4.24 L (4.40-5.90) Mil/uL Hgb 10.6 L (12.0-18.0) g/dL Hct 33.3 L (35.0-51.0) % MCV 78.5 L (80.0-94.0) fl MCH 25.1 L (27.0-31.0) pg MCHC 32.0 L (33.0-37.0) g/dL RDW 17.1 H (11.5-14.5) % Plt Count 140 (130-400) K/uL Sodium 138 (132-148) mmol/l Potassium 3.7 (3.6-5.0) MMOL/L Chloride 100 (98-107) mmol/L Carbon Dioxide 27 (22-30) mmol/L Anion Gap 15 (10-20) BUN 8 L (9-20) mg/dl Creatinine 0.7 L (0.8-1.5) mg/dl Est GFR ( Amer) > 60 Est GFR (Non-Af Amer) > 60 POC Glucose (mg/dL) 115 H (65-110) mg/dL Random Glucose 110 (75-110) mg/dL Lactic Acid (0.7-2.1) MMOL/L Calcium 8.4 (8.4-10.2) mg/dL Total Bilirubin 0.8 (0.2-1.3) mg/dl AST 41 (17-59) U/L ALT 38 (21-72) U/L Alkaline Phosphatase 60 (38-126) U/L Total Protein 6.6 (6.3-8.2) G/DL Albumin 3.4 L (3.5-5.0) g/dL Globulin 3.2 (2.2-3.9) gm/dL Albumin/Globulin Ratio 1.1 (1.0-2.1) 07/16/17 07/16/17 Range/Units 16:50 16:39 WBC (4.8-10.8) K/uL RBC (4.40-5.90) Mil/uL Hgb (12.0-18.0) g/dL Hct (35.0-51.0) % MCV (80.0-94.0) fl MCH (27.0-31.0) pg MCHC (33.0-37.0) g/dL RDW (11.5-14.5) % Plt Count (130-400) K/uL Sodium (132-148) mmol/l Potassium (3.6-5.0) MMOL/L Chloride (98-107) mmol/L Carbon Dioxide (22-30) mmol/L Anion Gap (10-20) BUN (9-20) mg/dl Creatinine (0.8-1.5) mg/dl Est GFR ( Amer) Est GFR (Non-Af Amer) POC Glucose (mg/dL) 113 H (65-110) mg/dL Random Glucose (75-110) mg/dL Lactic Acid 1.4 (0.7-2.1) MMOL/L Calcium (8.4-10.2) mg/dL Total Bilirubin (0.2-1.3) mg/dl AST (17-59) U/L ALT (21-72) U/L Alkaline Phosphatase (38-126) U/L Total Protein (6.3-8.2) G/DL Albumin (3.5-5.0) g/dL Globulin (2.2-3.9) gm/dL Albumin/Globulin Ratio (1.0-2.1) Laboratory Results - last 24 hr 07/16/17 07/16/17 07/16/17 16:39 16:50 21:14 WBC RBC Hgb Hct MCV MCH MCHC RDW Plt Count Sodium Potassium Chloride Carbon Dioxide Anion Gap BUN Creatinine Est GFR ( Amer) Est GFR (Non-Af Amer) POC Glucose (mg/dL) 113 H 115 H Random Glucose Lactic Acid 1.4 Calcium Total Bilirubin AST ALT Alkaline Phosphatase Total Protein Albumin Globulin Albumin/Globulin Ratio 07/17/17 07/17/17 07/17/17 04:30 04:30 06:05 WBC 8.5 RBC 4.24 L Hgb 10.6 L Hct 33.3 L MCV 78.5 L MCH 25.1 L MCHC 32.0 L RDW 17.1 H Plt Count 140 Sodium 138 Potassium 3.7 Chloride 100 Carbon Dioxide 27 Anion Gap 15 BUN 8 L Creatinine 0.7 L Est GFR ( Amer) > 60 Est GFR (Non-Af Amer) > 60 POC Glucose (mg/dL) 103 Random Glucose 110 Lactic Acid Calcium 8.4 Total Bilirubin 0.8 AST 41 ALT 38 Alkaline Phosphatase 60 Total Protein 6.6 Albumin 3.4 L Globulin 3.2 Albumin/Globulin Ratio 1.1 07/17/17 07/17/17 08:27 11:17 WBC RBC Hgb Hct MCV MCH MCHC RDW Plt Count Sodium Potassium Chloride Carbon Dioxide Anion Gap BUN Creatinine Est GFR ( Amer) Est GFR (Non-Af Amer) POC Glucose (mg/dL) 103 103 Random Glucose Lactic Acid Calcium Total Bilirubin AST ALT Alkaline Phosphatase Total Protein Albumin Globulin Albumin/Globulin Ratio Fingerstick Blood Sugar Results: 103 Critical Care Progress Note - Nutrition Nutrition: Nutrition Category Date Time Status Liquid Diet [DIET] Diets 07/17/17 Lunch Active Assessment/Plan (1) Alcohol abuse Current Visit: Yes Status: Acute Comment: Started on Librium protocol Continue PRN Ativan Continue Thiamine, folic acid and MVI IV IV Fluids (2) Hematemesis Current Visit: Yes Status: Acute Comment: This morning labs revealed stable H/H 10.2/30-->10.6/33, No active evidence of GI bleeding Pantoprazole drip Switch to PO BID Started on clear liquid, tolerating and planning to advance diet as tolerated (3) Hypokalemia Current Visit: No Status: Acute
[2017-07-18 05:25] LABS: MEAN CELL VOLUME 79.1 fl (80.0-94.0); MEAN CORPUSCULAR HEMOGLOBIN 25.7 pg (27.0-31.0); MEAN CORPUSCULAR HGB CONC 32.5 g/dL (33.0-37.0); RBC 3.88 Mil/uL (4.40-5.90); RED CELL DISTRIBUTION WIDTH 16.9 % (11.5-14.5); WHITE BLOOD COUNT 7.3 K/uL (4.8-10.8)
[2017-07-18 06:05] LABS: BLOOD UREA NITROGEN 8 mg/dl (9-20); CALCIUM 8.5 mg/dL (8.4-10.2); GFR AFRICAN-AMERICAN > 60; GFR NON-AFRICAN AMERICAN > 60
[2017-07-18] MEDS: Lactated Ringer's 1,000 ML IV SCH ×2 (06:16→17:30)
[2017-07-18] MEDS ORDERED: Metoprolol 1 mg/ml Inj IVP ONE (09:28)
[2017-07-18] MEDS: Pantoprazole 40 mg EC Tab PO SCH (09:49)
--- NOTE | 2017-07-18 10:23 | CP.CCUPN ---
CCU Subjective - Physician Review Subjective (Free Text): Awake and responsive, does not appear overtly agitated, but tachycardic to 160 s in sinus, denies any chest discomfort, nor SOB, SPO2 99% on RA, and BNP 140/80 s. Tachycardic rhythm observed on telemetry showing respiratory variation with varying R wave amplitude. Review of 12 lead EKIGs show previous episodes of similar tachycardia, but rate -related ST-T wave changes noted. Lopressor 5 mg IVP given with slowing of rate to 84 and BP 130/70s. Other VS and I/Os reviewed. ROS: No other pertinent negs or positives on 10+ system review. PMSFH: All other Nursing and physician documentation reviewed to date; no new pertinent info noted relevant to current medical problems. IMPRESSION / MAJOR PROBLEMS NOW: 1. Sinus tachyarrhythmias with HTN 2. Acute ETOH Intoxication with Chronic Alcoholism 3. UGI Bleed 4. Acute Anemia 2 #1 5. Hypokalemia PLAN: 1. Stop Norvasc, start Metoprolol 2. Would check ECHO, r/o ETOH Cardiomyopathy 3. IVF hydration. 4. Increase Librium with holds for excessive sedation. 5. Supplement K, check Mag, Phos levels and replete if low. CCU Objective - Vital Signs / Intake & Output Vital Signs (Last 4 hours): Vital Signs Temp Pulse Resp BP Pulse Ox 07/18/17 09:49 123 H 147/91 H 07/18/17 08:00 98.3 F 83 11 L 122/82 98 Intake and Output (Last 8hrs): Intake & Output 07/17/17 07/18/17 07/18/17 22:59 06:59 14:59 Intake Total 1050 1120 Output Total 675 500 Balance 375 620 Intake: IV 750 1000 Oral 300 120 Output: Urine 675 500 Urine, Voided 675 500 Other: # Voids Urine, Voided 2 - Physical Exam Head: Positive for: Atraumatic, Normocephalic Pupils: Positive for: PERRL. Negative for: Sluggish, Non-Reactive, Pinpoint Extroacular Muscles: Positive for: EOMI Conjunctiva: Positive for: Normal. Negative for: Injected, Icteric Ears: Positive for: Normal Mouth: Positive for: Moist Mucous Membranes Pharnyx: Positive for: Normal Neck: Positive for: Normal Range of Motion, Trachea Midline. Negative for: Meningeal Signs, MIDLINE TENDERNESS, Paraspinal Tenderness, JVD, Lymphadenopathy , Bruit, Other Respiratory/Chest: Positive for: Clear to Auscultation, Good Air Exchange. Negative for: Respiratory Distress, Accessory Muscle Use, Wheezes, Decreased Breath Sounds, Rales Cardiovascular: Positive for: Regular Rate and Rhythm, Normal S1, S2, Peripheal Pulses Present. Negative for: Murmurs, Irregular Rhythm Abdomen: Positive for: Normal Bowel Sounds. Negative for: Tenderness, Distention, Peritoneal Signs Lower Extremity: Positive for: NORMAL PULSES. Negative for: Edema, CALF TENDERNESS, Cyanosis Neurological: Positive for: GCS=15, CN II-XII Intact, Speech Normal Skin: Positive for: Warm, Dry. Negative for: Rashes Psychiatric: Positive for: Alert, Oriented x 3. Negative for: Agitated - Medications Active Medications: Active Medications Generic Name Dose Route Start Last Admin Trade Name Freq PRN Reason Stop Dose Admin Chlordiazepoxide 50 mg 07/18/17 09:30 07/18/17 09:49 Librium PO 50 mg Q6 [facility] Administration Folic Acid 1 mg 07/18/17 09:30 Folic Acid PO DAILY [facility] Lactated Ringer's 1,000 mls @ 125 mls/hr 07/16/17 07:15 07/18/17 06:16 Lactated Ringer's IV 125 mls/hr .Q8H [facility] Administration Lorazepam 1 mg 07/15/17 23:36 07/18/17 09:48 Ativan IVP 1 mg Q4H PRN Administration Agitation Metoprolol Tartrate 100 mg 07/18/17 09:45 Lopressor PO Q12 [facility] Ondansetron HCl 4 mg 07/15/17 23:03 07/16/17 12:40 Zofran Inj IVP 4 mg Q4 PRN Administration Nausea/Vomiting Pantoprazole Sodium 40 mg 07/18/17 09:00 07/18/17 09:49 Protonix Ec Tab PO 40 mg DAILY [facility] Administration Risperidone 2 mg 07/17/17 12:15 07/18/17 09:50 Risperdal Tab PO 2 mg Q12 [facility] Administration Thiamine HCl 100 mg 07/18/17 09:30 Vitamin B1 Tab PO DAILY [facility] - Patient Studies Lab Studies: Microbiology Studies 07/15/17 19:18 Blood Culture - Preliminary Blood NO GROWTH AFTER 48 HOURS 07/15/17 19:18 Blood Culture - Preliminary Blood NO GROWTH AFTER 48 HOURS Lab Studies 07/18/17 07/18/17 07/18/17 Range/Units 06:05 04:45 04:45 WBC 7.3 (4.8-10.8) K/uL RBC 3.88 L (4.40-5.90) Mil/uL Hgb 10.0 L (12.0-18.0) g/dL Hct 30.7 L (35.0-51.0) % MCV 79.1 L (80.0-94.0) fl MCH 25.7 L (27.0-31.0) pg MCHC 32.5 L (33.0-37.0) g/dL RDW 16.9 H (11.5-14.5) % Plt Count 131 (130-400) K/uL Sodium 140 (132-148) mmol/l Potassium 3.2 L (3.6-5.0) MMOL/L Chloride 103 (98-107) mmol/L Carbon Dioxide 28 (22-30) mmol/L Anion Gap 12 (10-20) BUN 8 L (9-20) mg/dl Creatinine 0.7 L (0.8-1.5) mg/dl Est GFR ( Amer) > 60 Est GFR (Non-Af Amer) > 60 POC Glucose (mg/dL) 89 (65-110) mg/dL Random Glucose 94 (75-110) mg/dL Calcium 8.5 (8.4-10.2) mg/dL 07/17/17 07/17/17 07/17/17 Range/Units 21:17 16:42 11:17 WBC (4.8-10.8) K/uL RBC (4.40-5.90) Mil/uL Hgb (12.0-18.0) g/dL Hct (35.0-51.0) % MCV (80.0-94.0) fl MCH (27.0-31.0) pg MCHC (33.0-37.0) g/dL RDW (11.5-14.5) % Plt Count (130-400) K/uL Sodium (132-148) mmol/l Potassium (3.6-5.0) MMOL/L Chloride (98-107) mmol/L Carbon Dioxide (22-30) mmol/L Anion Gap (10-20) BUN (9-20) mg/dl Creatinine (0.8-1.5) mg/dl Est GFR ( Amer) Est GFR (Non-Af Amer) POC Glucose (mg/dL) 92 79 103 (65-110) mg/dL Random Glucose (75-110) mg/dL Calcium (8.4-10.2) mg/dL Laboratory Results - last 24 hr 07/17/17 07/17/17 07/17/17 11:17 16:42 21:17 WBC RBC Hgb Hct MCV MCH MCHC RDW Plt Count Sodium Potassium Chloride Carbon Dioxide Anion Gap BUN Creatinine Est GFR ( Amer) Est GFR (Non-Af Amer) POC Glucose (mg/dL) 103 79 92 Random Glucose Calcium 07/18/17 07/18/17 07/18/17 04:45 04:45 06:05 WBC 7.3 RBC 3.88 L Hgb 10.0 L Hct 30.7 L MCV 79.1 L MCH 25.7 L MCHC 32.5 L RDW 16.9 H Plt Count 131 Sodium 140 Potassium 3.2 L Chloride 103 Carbon Dioxide 28 Anion Gap 12 BUN 8 L Creatinine 0.7 L Est GFR ( Amer) > 60 Est GFR (Non-Af Amer) > 60 POC Glucose (mg/dL) 89 Random Glucose 94 Calcium 8.5 EKG/Cardiology Studies: See Above comments in HPI entry. Fingerstick Blood Sugar Results: 89 Review of Systems - Review of Systems All systems: reviewed and no additional remarkable complaints except (as above) Critical Care Progress Note - Nutrition Nutrition: Nutrition Category Date Time Status Liquid Diet [DIET] Diets 07/17/17 Lunch Active
[2017-07-18] MEDS ORDERED: Potassium Chloride 20 mEq ER Tab PO ONE (11:45)
--- NOTE | 2017-07-18 13:24 | CP.PCM.PN ---
Subjective - Date & Time of Evaluation Date of Evaluation: 07/18/17 Time of Evaluation: 12:00 - Subjective Subjective: Pt noted to be tachycardic today denies CP no SOB tremulous denies abd pain no further hematemesis nor melena had dark brown BM today no N/V Objective - Vital Signs/Intake and Output Vital Signs (last 24 hours): Temp Pulse Resp BP Pulse Ox 98.3 F 102 H 13 119/81 97 07/18/17 08:00 07/18/17 10:00 07/18/17 10:00 07/18/17 10:00 07/18/17 10:00 Intake and Output: 07/18/17 07/18/17 06:59 18:59 Intake Total 1620 Output Total 875 Balance 745 - Medications Medications: Current Medications Chlordiazepoxide (Librium) 50 mg PO Q6 [facility] Last Admin: 07/18/17 09:49 Dose: 50 mg Folic Acid (Folic Acid) 1 mg PO DAILY [facility] Lactated Ringer's (Lactated Ringer's) 1,000 mls @ 125 mls/hr IV .Q8H [facility] Last Admin: 07/18/17 06:16 Dose: 125 mls/hr Lorazepam (Ativan) 1 mg IVP Q4H PRN PRN Reason: Agitation Last Admin: 07/18/17 09:48 Dose: 1 mg Metoprolol Tartrate (Lopressor) 100 mg PO Q12 [facility] Ondansetron HCl (Zofran Inj) 4 mg IVP Q4 PRN PRN Reason: Nausea/Vomiting Last Admin: 07/16/17 12:40 Dose: 4 mg Pantoprazole Sodium (Protonix Ec Tab) 40 mg PO DAILY [facility] Last Admin: 07/18/17 09:49 Dose: 40 mg Risperidone (Risperdal Tab) 2 mg PO Q12 [facility] Last Admin: 07/18/17 09:50 Dose: 2 mg Thiamine HCl (Vitamin B1 Tab) 100 mg PO DAILY [facility] - Labs Labs: 07/18/17 04:45 07/18/17 04:45 PT 11.9 Seconds (9.8-13.1) 07/16/17 08:34 INR 1.1 (0.9-1.2) 07/16/17 08:34 APTT 28.5 Seconds (25.6-37.1) 07/15/17 19:12 - Constitutional Appears: No Acute Distress - Head Exam Head Exam: NORMAL INSPECTION, NORMOCEPHALIC - Eye Exam Eye Exam: EOMI, Normal appearance, PERRL Pupil Exam: NORMAL ACCOMODATION - ENT Exam ENT Exam: Mucous Membranes Dry, Normal External Ear Exam - Neck Exam Neck Exam: Full ROM. absent: Meningismus - Respiratory Exam Respiratory Exam: NORMAL BREATHING PATTERN. absent: Rales, Wheezes, Respiratory Distress - Cardiovascular Exam Cardiovascular Exam: REGULAR RHYTHM, +S1, +S2, tachycardia - GI/Abdominal Exam GI & Abdominal Exam: Soft, Normal Bowel Sounds. absent: Tenderness - Extremities Exam Extremities Exam: Full ROM, Normal Capillary Refill. absent: Calf Tenderness - Back Exam Back Exam: Full ROM. absent: CVA tenderness (L), CVA tenderness (R) - Neurological Exam Neurological Exam: Alert, Awake, CN II-XII Intact, Oriented x3 Neuro motor strength exam: Left Upper Extremity: 5, Right Upper Extremity: 5, Left Lower Extremity: 5, Right Lower Extremity: 5 - Psychiatric Exam Psychiatric exam: Normal Affect, Normal Mood - Skin Skin Exam: Dry, Normal Color, Warm Assessment and Plan - Assessment and Plan (Free Text) Assessment: 32 years old male with hx of HTN, DM II, Schizophrenia, Alcohol Abuse and GI bleed came to ER with Hematemesis after binge drinking ,associated with rectal bleeding, abdominal pain and SOB. He had been drinking on the night before this admission. He states that stopped drinking recently but restarted again. Cocaine use 1 week ago. He had multiple episodes of hematemesis noted in ER with melena. He was started on IVF , PPI drip and Octreotide. He was admitted to ICU for close monitoring . No more bleeding episode since admission. GI consulted and rec outpt EGD. 1. Upper GI Bleed probably secondary to ruptured Esophageal varices vs Hemorrhagic Gastritis vs PUD vs Shirley Bello tear GI consulted, discussed case with Dr Perkins- plan for EGD as outpt, may do EGD inpatient if patient has any signs of continuous GI bleed Off Protonix drip - changed to PO Off octreotide drip H/H has been stable Upgrade diet to Full Liquid 2. Anemia Secondary to acute blood loss Hgb dropped from 11.7 to 10 Continue monitoring Pt was transfused 1unit PRBC in the ED 3.Alcohol Intoxication/impending DT-s/Alcohol dependence Seizure/ withdrawal precautions Ativan PRN for withdrawal started Librium RTC- increased dose due to signs of withdrawal Continue Thiamine , folic acid and MVI IV and IVF 4. Hypokalemia Replaced with KCl PO 5. Sinus Tachycardia prob sec to Alcohol Withdrawal started on Metoprolol PO increase Librium dose ECHO 6. DM type II Accuchecks and insulin coverage check Hgb A1c Glucose level normal ( pt on Liquid diet) 7. Hypertension Norvasc changed to Metoprolol due to Tachy 8. Schizophrenia cont Risperdal DVT prophylaxis SCD no anticoag due to GIB
--- NOTE | 2017-07-18 18:00 | CARD ---
APPROVED REPORT EXAM: Two-dimensional and M-mode echocardiogram with Doppler and color Doppler. Other Information Quality : GoodRhythm : NSR INDICATION Abnormal EKG/Arrhythmia 2D DIMENSIONS IVSd1.08 (0.7-1.1cm)LVDd5.14 (3.9-5.9cm) LVOT Diameter2.65 (1.8-2.4cm)PWd0.99 (0.7-1.1cm) IVSs1.77 (0.8-1.2cm)LVDs3.37 (2.5-4.0cm) FS (%) 34.5 %PWs1.60 (0.8-1.2cm) LVEF (%)55.0 (>50%) M-Mode DIMENSIONS Left Atrium (MM)3.76 (2.5-4.0cm)IVSd1.09 (0.7-1.1cm) Aortic Root4.00 (2.2-3.7cm)LVDd6.88 (4.0-5.6cm) Aortic Cusp Exc.2.68 (1.5-2.0cm)PWd1.24 (0.7-1.1cm) IVSs1.82 cmFS (%) 41 % LVDs4.06 (2.0-3.8cm)PWs1.76 cm Mitral Valve MV E Szkmvzgx94.8cm/sMV DECEL [id number] A Uqjyiran81.8cm/s MV NWZ26gvX/A ratio1.3MVA (PHT)3.45cm2 TDI Lateral E' Peak V17.52cm/sMedial E' Peak V10.10cm/sE/Lateral E'3.3 E/Medial E'5.7 Pulmonary Valve PV Peak Riolhaeq820.1cm/s LEFT VENTRICLE The left ventricle is normal size. There is borderline concentric left ventricular hypertrophy. The left ventricular function is normal. The left ventricular ejection fraction is within the normal range. There is normal LV segmental wall motion. The left ventricular diastolic function is normal. RIGHT VENTRICLE The right ventricle is normal size. There is normal right ventricular wall thickness. The right ventricular systolic function is normal. ATRIA The left atrium size is normal. The right atrium size is normal. AORTIC VALVE The aortic valve is not well visualized, consider evaluation if clinically warrented No aortic regurgitation is present. There is no aortic valvular stenosis. MITRAL VALVE The mitral valve is mildly thickened. There is no mitral valve stenosis. Mitral regurgitation is trace. TRICUSPID VALVE The tricuspid valve is normal in structure. There is no tricuspid valve regurgitation noted. PULMONIC VALVE The pulmonary valve is normal in structure. There is no pulmonic valvular regurgitation. GREAT VESSELS The aortic root is mildly enlarged. The IVC is normal in size and collapses >50% with inspiration. PERICARDIAL EFFUSION The pericardium appears normal. <Conclusion> The left ventricle is normal size. There is borderline concentric left ventricular hypertrophy. The left ventricular function is normal. The left ventricular ejection fraction is within the normal range. There is normal LV segmental wall motion. The left ventricular diastolic function is normal.
--- NOTE | 2017-07-18 21:47 | CARD ---
APPROVED REPORT EKG Measurement Heart [id number] <Conclusion> Sinus tachycardia Inferior infarct, age undetermined Abnormal ECG
[2017-07-19] MEDS: Lactated Ringer's 1,000 ML IV SCH (04:57)
[2017-07-19 05:36] LABS: HEMOGLOBIN 10.5 g/dL (12.0-18.0); MEAN CELL VOLUME 80.6 fl (80.0-94.0); MEAN CORPUSCULAR HEMOGLOBIN 26.4 pg (27.0-31.0); MEAN CORPUSCULAR HGB CONC 32.7 g/dL (33.0-37.0); RBC 3.97 Mil/uL (4.40-5.90); RED CELL DISTRIBUTION WIDTH 17.3 % (11.5-14.5); WHITE BLOOD COUNT 9.1 K/uL (4.8-10.8)
[2017-07-19 06:09] LABS: BLOOD UREA NITROGEN 6 mg/dl (9-20); CALCIUM 8.8 mg/dL (8.4-10.2); GFR AFRICAN-AMERICAN > 60; GFR NON-AFRICAN AMERICAN > 60
[2017-07-19] MEDS: Pantoprazole 40 mg EC Tab PO SCH (08:31)
[2017-07-19] MEDS ORDERED: Potassium Chloride 20 mEq/15 ml LIQ UD PO ONE (09:13)
[2017-07-19 10:49] VITALS: BP 116/71; PULSE 91; RESP 20; O2SAT 99
[2017-07-19 13:18] VITALS: TEMP 97.8
--- NOTE | 2017-07-19 18:25 | CP.PCM.DIS ---
Provider - Provider Date of Admission: 07/15/17 21:08 Attending physician: Keanu Armstrong Primary care physician: None Consults: GI consult Time Spent in preparation of Discharge (in minutes): 20 Hospital Course - Lab Results Lab Results: Micro Results 07/16/17 12:24 Naris MRSA Culture (Admit) - Final MRSA NOT DETECTED 07/15/17 19:18 Blood Blood Culture - Preliminary NO GROWTH AFTER 3 DAYS 07/15/17 19:18 Blood Blood Culture - Preliminary NO GROWTH AFTER 3 DAYS Most Recent Lab Values WBC 9.1 K/uL (4.8-10.8) 07/19/17 05:10 RBC 3.97 Mil/uL (4.40-5.90) L 07/19/17 05:10 Hgb 10.5 g/dL (12.0-18.0) L 07/19/17 05:10 Hct 32.0 % (35.0-51.0) L 07/19/17 05:10 MCV 80.6 fl (80.0-94.0) 07/19/17 05:10 MCH 26.4 pg (27.0-31.0) L 07/19/17 05:10 MCHC 32.7 g/dL (33.0-37.0) L 07/19/17 05:10 RDW 17.3 % (11.5-14.5) H 07/19/17 05:10 Plt Count 157 K/uL (130-400) 07/19/17 05:10 MPV 8.9 fl (7.2-11.7) 07/16/17 08:00 Neut % (Auto) 75.3 % (50.0-75.0) H 07/16/17 08:00 Lymph % (Auto) 17.0 % (20.0-40.0) L 07/16/17 08:00 [place] % (Auto) 6.3 % (0.0-10.0) 07/16/17 08:00 Eos % (Auto) 1.0 % (0.0-4.0) 07/16/17 08:00 Baso % (Auto) 0.4 % (0.0-2.0) 07/16/17 08:00 Neut # (Auto) 7.6 K/uL (1.8-7.0) H 07/16/17 08:00 Lymph # (Auto) 1.7 K/uL (1.0-4.3) 07/16/17 08:00 [place] # (Auto) 0.6 K/uL (0.0-0.8) 07/16/17 08:00 Eos # (Auto) 0.1 K/uL (0.0-0.7) 07/16/17 08:00 Baso # (Auto) 0.0 K/uL (0.0-0.2) 07/16/17 08:00 PT 11.9 Seconds (9.8-13.1) 07/16/17 08:34 INR 1.1 (0.9-1.2) 07/16/17 08:34 APTT 28.5 Seconds (25.6-37.1) 07/15/17 19:12 pO2 54 mm/Hg (30-55) 07/15/17 19:30 VBG pH 7.45 (7.32-7.43) H 07/15/17:30 VBG pCO2 35 mmHg (40-60) L 07/15/17:30 VBG HCO3 25.3 mmol/L 07/15/17:30 VBG Total CO2 25.4 mmol/L (22-28) 07/15/17:30 VBG O2 Sat (Calc) 95.6 % (40-65) H 07/15/17 19:30 VBG Base Excess 0.7 mmol/L (0.0-2.0) 07/15/17:30 VBG Potassium 2.9 mmol/L (3.6-5.2) L 07/15/17:30 Sodium 137.0 mmol/L (132-148) 07/15/17:30 Chloride 105.0 mmol/L (98-107) 07/15/17:30 Glucose 125 mg/dL (75-110) H 07/15/17 19:30 Lactate 4.4 mmol/L (0.7-2.1) H* 07/15/17 19:30 FiO2 21.0 % 07/15/17 19:30 Crit Value Called To Emilee rosas 07/15/17 19:30 Crit Value Called By 23 07/15/17 19:30 Crit Value Read Back Y 07/15/17 19:30 Blood Gas Notified Time 19307/15/17 19:30 Sodium 140 mmol/l (132-148) 07/19/17 05:10 Potassium 3.5 MMOL/L (3.6-5.0) L 07/19/17 05:10 Chloride 106 mmol/L (98-107) 07/19/17 05:10 Carbon Dioxide 24 mmol/L (22-30) 07/19/17 05:10 Anion Gap 14 (10-20) 07/19/17 05:10 BUN 6 mg/dl (9-20) L 07/19/17 05:10 Creatinine 0.7 mg/dl (0.8-1.5) L 07/19/17 05:10 Est GFR ( Amer) > 60 07/19/17 05:10 Est GFR (Non-Af Amer) > 60 07/19/17 05:10 POC Glucose (mg/dL) 119 mg/dL (65-110) H 07/19/17 12:07 Random Glucose 100 mg/dL (75-110) 07/19/17 05:10 Hemoglobin A1c 5.4 % (4.2-6.5) 07/19/17 05:10 Lactic Acid 1.4 MMOL/L (0.7-2.1) 07/16/17 16:50 Calcium 8.8 mg/dL (8.4-10.2) 07/19/17 05:10 Phosphorus 3.0 mg/dl (2.5-4.5) 07/15/17 19:12 Magnesium 2.0 MG/DL (1.6-2.3) 07/19/17 05:10 Total Bilirubin 0.8 mg/dl (0.2-1.3) 07/17/17 04:30 AST 41 U/L (17-59) 07/17/17 04:30 ALT 38 U/L (21-72) 07/17/17 04:30 Alkaline Phosphatase 60 U/L (38-126) 07/17/17 04:30 Ammonia 17 umo/L (16-60) 07/15/17 19:12 Total Protein 6.6 G/DL (6.3-8.2) 07/17/17 04:30 Albumin 3.4 g/dL (3.5-5.0) L 07/17/17 04:30 Globulin 3.2 gm/dL (2.2-3.9) 07/17/17 04:30 Albumin/Globulin Ratio 1.1 (1.0-2.1) 07/17/17 04:30 Lipase 206 U/L (23-300) 07/15/17 19:12 Venous Blood Potassium 2.9 mmol/L (3.6-5.2) L 07/15/17 19:30 Urine Opiates Screen Negative (NEGATIVE) 07/15/17 21:50 Urine Methadone Screen Negative (NEGATIVE) 07/15/17 21:50 Ur Barbiturates Screen Negative (NEGATIVE) 07/15/17 21:50 Ur Phencyclidine Scrn Negative (NEGATIVE) 07/15/17 21:50 Ur Amphetamines Screen Negative (NEGATIVE) 07/15/17 21:50 U Benzodiazepines Scrn Negative (NEGATIVE) 07/15/17 21:50 U Oth Cocaine Metabols Negative (NEGATIVE) 07/15/17 21:50 U Cannabinoids Screen Negative (NEGATIVE) 07/15/17 21:50 Alcohol, Quantitative 249 mg/dl (0-10) H 07/15/17 19:12 Blood Type A POSITIVE 07/15/17 19:12 Blood Type Confirm A POSITIVE 07/15/17 21:45 Antibody Screen Negative 07/15/17 19:12 Crossmatch See Detail 07/15/17 19:12 BBK History Checked No verified bt 07/15/17 19:12 - Hospital Course Hospital Course: 32 years old male with hx of HTN, DM II, Schizophrenia, Alcohol Abuse and GI bleed came to ER with Hematemesis after binge drinking ,associated with rectal bleeding, abdominal pain and SOB. He had been drinking on the night before this admission. He stated that stopped drinking recently but restarted again. Cocaine use 1 week ago. He had multiple episodes of hematemesis noted in ER with melena. He was started on IVF , PPI drip and Octreotide. He was admitted to ICU for close monitoring . No more bleeding episode since admission. GI consulted and rec outpt EGD and PPI during this admission he also was treated for alcoholism and withdrawal symptoms with Thiamine, folic acid, ativan PRN and librium At present he is hemodynamically stable, not tachycardic with no tremors, no episodes of hematemesis, or melena, stable H&H., tolerating PO intake and ambulating with steady gait counselled patient on ETOH abuse will discharge patient home on stable conditions with family member Follow up at [facility] 1. Upper GI Bleed -- resolved probably secondary to ruptured Esophageal varices vs Hemorrhagic Gastritis vs PUD vs Shirley Bello tear GI consulted, discussed case with Dr Perkins- plan for EGD as outpt, \ Continue protonix as outpatient Counselled on ETOH abuse H/H has been stable tolerating diet 2. Anemia Secondary to acute blood loss Hgb dropped from 11.7 to 10 Continue monitoring Pt was transfused 1 unit PRBC in the ED At present hgb 10.5 3.Alcohol Intoxication/impending DT-s/Alcohol dependence Seizure/ withdrawal precautions Given Ativan PRN for withdrawal, librium ,Thiamine , folic acid and MVI IV and IVF no tachycardia no signs of withdrawal 4. Hypokalemia Replaced with KCl PO 5. Sinus Tachycardia prob sec to Alcohol Withdrawal started on Metoprolol PO CHO - normal EF 6. DM type II-p-ruled out Accuchecks well controlled with no treatment 7. Hypertension Norvasc changed to Metoprolol due to Tachycardia 8. Schizophrenia cont Risperdal 9. Cocaine use drug screen test was positive for cocaine counselled patient 10.DVT prophylaxis SCD no anticoag due to GIB Discharge Exam - Head Exam Head Exam: NORMAL INSPECTION, NORMOCEPHALIC - Eye Exam Eye Exam: EOMI, Normal appearance, PERRL Pupil Exam: NORMAL ACCOMODATION - ENT Exam ENT Exam: Mucous Membranes Moist, Normal Exam - Neck Exam Neck exam: Full Rom, Normal Inspection - Respiratory Exam Respiratory Exam: Clear to PA & Lateral, NORMAL BREATHING PATTERN. absent: Rales, Rhonchi, Wheezes - Cardiovascular Exam Cardiovascular Exam: REGULAR RHYTHM, RRR, +S1, +S2. absent: JVD - GI/Abdominal Exam GI & Abdominal Exam: Normal Bowel Sounds, Soft. absent: Distended, Guarding, Rebound, Tenderness - Rectal Exam Rectal Exam: Deferred - Extremities Exam Extremities exam: normal capillary refill, normal inspection, pedal pulses present - Back Exam Back exam: NORMAL INSPECTION - Neurological Exam Neurological exam: Alert, CN II-XII Intact, Oriented x3, Reflexes Normal - Psychiatric Exam Psychiatric exam: Normal Affect - Skin Skin Exam: Dry, Normal Color, Warm Discharge Plan - Discharge Medications Prescriptions: Folic Acid 1 mg PO DAILY #30 tab Metoprolol Tartrate [Lopressor] 100 mg PO Q12 #60 tab Pantoprazole [Protonix EC Tab] 40 mg PO DAILY #30 ect risperiDONE [RisperDAL Tab] 2 mg PO Q12 #60 tab Thiamine [Vitamin B1 Tab] 100 mg PO DAILY #30 tab - Follow Up Plan Condition: STABLE Disposition: HOME/ ROUTINE Patient education suggested?: Yes Instructions: Gastrointestinal Bleeding (DC), Alcohol Abuse and Alcoholism (DC) Referrals: [facility] [place] [Outside]
== END 2017-07-19 14:00 | disposition home or self-care (01) | DRG 174 ==
LOC: H.ER 18:31 → H.ERHOLD 21:08 → H.ICU/CCU 07-16 11:01
PROVIDERS: ADMIT Internal Medicine; ATTEND Internal Medicine
PROC: 3E0234Z Introduction of Serum, Toxoid and Vaccine into Muscle, Percutaneous Approach (ICD-10-PCS; principal; 2017-07-17)
DX: K92.0 Hematemesis (principal); E87.6 Hypokalemia; F20.9 Schizophrenia, unspecified; F10.239 Alcohol dependence with withdrawal, unspecified; F14.90 Cocaine use, unspecified, uncomplicated; I95.1 Orthostatic hypotension; R00.0 Tachycardia, unspecified; D62 Acute posthemorrhagic anemia; F10.229 Alcohol dependence with intoxication, unspecified; Y90.8 Blood alcohol level of 240 mg/100 ml or more; I10 Essential (primary) hypertension; Z23 Encounter for immunization; K92.1 Melena; D72.829 Elevated white blood cell count, unspecified

== ENCOUNTER 2017-09-14 01:59 | Inpatient (IN) | payer SELFPAY ==
[2017-09-14 01:59] VITALS: BMI 26.4
[2017-09-14] MEDS ORDERED: Sodium Chloride 0.9% 1,000 ML IV STA ×2 (02:32→04:03)
--- NOTE | 2017-09-14 02:53 | ED PDOC ---
HPI:Nausea, Vomiting, Diarrhea Time Seen by Provider: 09/14/17 02:00 Chief Complaint (Nursing): GI Problem Chief Complaint (Provider): Vomiting History Per: Patient History/Exam Limitations: no limitations Onset/Duration Of Symptoms: Days (5x) Current Symptoms Are (Timing): Still Present Associated Symptoms: Vomiting Additional History Per: EMS Additional Complaint(s): 32 year old male with past medical history of alcohol abuse and GI bleed was brought to the ED by EMS. He is complaining of vomiting blood onset 5 days ago. EMS reported he vomited inside the vehicle. Patient is not forthcoming with full history and states he drank yesterday. PMD: Provider TBD Past Medical History Reviewed: Historical Data, Nursing Documentation, Vital Signs Vital Signs: Last Vital Signs Temp 98.9 F 09/14/17 02:07 Pulse 132 H 09/14/17 02:07 Resp 18 09/14/17 02:07 BP 118/81 09/14/17 02:07 Pulse Ox 99 09/14/17 02:07 - Medical History PMH: Fractures, HTN, Schizophrenia Denies: Anxiety, Bipolar Disorder, Depression, Diabetes, Hepatitis, HIV, Personality Disorder, Chronic Kidney Disease, Seizures, Sexually Transmitted Disease - Surgical History Surgical History: Endoscopy - Family History Family History: States: Unknown Family Hx - Social History Current smoker - smoking cessation education provided: No Alcohol: < 2 Drinks/Day Drugs: Cocaine (one time) - Home Medications Home Medications: Ambulatory Orders Medication Instructions Recorded No Known Home Med 09/14/17 - Allergies Allergies/Adverse Reactions: Allergies Allergy/AdvReac Type Severity Reaction Status Date / Time No Known Allergies Allergy Verified 05/30/16 09:21 Review of Systems Review Of Systems: ROS cannot be obtained secondary to pt's inabilty to answer questions. Physical Exam - Reviewed Nursing Documentation Reviewed: Yes Vital Signs Reviewed: Yes - Physical Exam Appears: Positive for: Non-toxic, No Acute Distress Head Exam: Positive for: ATRAUMATIC, NORMAL INSPECTION, NORMOCEPHALIC Skin: Positive for: Normal Color, Warm, Dry Cardiovascular/Chest: Positive for: Regular Rate, Rhythm. Negative for: Murmur Respiratory: Positive for: Normal Breath Sounds. Negative for: Decreased Breath Sounds, Accessory Muscle Use, Respiratory Distress Gastrointestinal/Abdominal: Positive for: Normal Exam, Bowel Sounds, Soft. Negative for: Tenderness, Guarding, Rebound Extremity: Positive for: Normal ROM Neurologic/Psych: Positive for: Alert, Other (poor hygiene) - Laboratory Results Result Diagrams: 09/14/17 02:56 09/14/17 02:56 - ECG ECG: Positive for: Interpreted By Me, Viewed By Me ECG Rhythm: Positive for: Sinus Tachycardia Rate: 108 O2 Sat by Pulse Oximetry: 99 (RA) Pulse Ox Interpretation: Normal - Critical Care Total Time (In Min): 30 Medical Decision Making Medical Decision Making: Time: 023 Initial Impression: GI bleed possible varices vs gastritis Initial Plan: --BBK --Alcohol Serum --CMP --Lipase --CBC w/ differential --Glucose, POC Routine --Normal Saline 999mls/hr --Pepcid 20mg --Protonix 40mg --Zofran 4mg --Reevaluation Patient had one episode of bloody vomit in ED. Hemoglobin and vital signs are stable. upon review of olds recordds He was admitted on 07/15/2017 for GI bleed and drinks 2 bottles of vodka daily. EKG presented sinus tachycardia and 108bpm. Time: 043 Spoke to hospitalist and patient will be admitted. Dr. Camarena accepted admission. Time: 045 Spoke to GI specialist, Dr. Shrestha who has no further recommendation. He does not think there its due to varices and will see patient in the morning. Time: 0540 EXAM: CT Abdomen and Pelvis Without Intravenous Contrast FINDINGS: The liver is decreased in attenuation consistent with fatty infiltration. The gallbladder, spleen, and pancreas appear grossly normal on this non- contrast study. No perinephric stranding. No hydronephrosis. No obstructing calculi. A moderate sized hiatal hernia is present. Colonic diverticulosis is present. A normal appendix is identified axial images 90 through 103. IMPRESSION: Fatty liver. Hiatal hernia. Scribe Attestation: Documented by Edmund Fatima, acting as a scribe for Fernie Drummond MD Provider Scribe Attestation: All medical record entries made by the Scribe were at my direction and personally dictated by me. I have reviewed the chart and agree that the record accurately reflects my personal performance of the history, physical exam, medical decision making, and the department course for this patient. I have also personally directed, reviewed, and agree with the discharge instructions and disposition. Disposition - Clinical Impression Clinical Impression: Gastrointestinal hemorrhage - Patient ED Disposition Is Patient to be Admitted: Yes Counseled Patient/Family Regarding: Studies Performed, Diagnosis - Disposition Disposition Time: 04:00 Condition: SERIOUS
[2017-09-14 03:00] LABS: BASO % 0.3 % (0.0-2.0); EOS % 0.1 % (0.0-4.0); HEMOGLOBIN 14.3 g/dL (12.0-18.0); LYMPH # 1.2 K/uL (1.0-4.3); LYMPH % 12.1 % (20.0-40.0); MEAN CORPUSCULAR HEMOGLOBIN 24.4 pg (27.0-31.0); MEAN CORPUSCULAR HGB CONC 33.9 g/dL (33.0-37.0); MEAN PLATELET VOLUME 8.6 fl (7.2-11.7); MONO # 0.7 K/uL (0.0-0.8); MONO % 6.6 % (0.0-10.0); NEUT # 8.2 K/uL (1.8-7.0); NEUT % 80.9 % (50.0-75.0); NRBC % 0.2 % (0.0-0.0); RBC 5.86 Mil/uL (4.40-5.90); RED CELL DISTRIBUTION WIDTH 20.4 % (11.5-14.5); WHITE BLOOD COUNT 10.1 K/uL (4.8-10.8)
[2017-09-14 03:07] LABS: ALB/GLOB RATIO 1.1 (1.0-2.1); ALBUMIN 4.5 g/dL (3.5-5.0); ALT/SGPT 711 U/L (21-72); AST/SGOT 654 U/L (17-59); BLOOD UREA NITROGEN 27 mg/dl (9-20); CALCIUM 8.2 mg/dL (8.4-10.2); GFR AFRICAN-AMERICAN > 60; GFR NON-AFRICAN AMERICAN 58; LIPASE 317 U/L (23-300)
[2017-09-14] MEDS ORDERED: Multivitamin (MVI) 10 ML, Thiamine 100 MG, Folic Acid 1 MG in Sodium Chloride 0.9% 1,00... IV ONE (03:58)
[2017-09-14] MEDS ORDERED: Multivitamin (MVI) 10 ML, Folic Acid 1 MG in Sodium Chloride 0.9% 1,000 ML IV ONE (04:15)
[2017-09-14] MEDS ORDERED: Pantoprazole 40 MG in Sodium Chloride 0.9% 100 ML IVPB STA (04:51)
--- NOTE | 2017-09-14 05:07 | CP.PCM.HP ---
History of Present Illness - History of Present Illness History of Present Illness: CC: UGIB/hematemesis HPI: This is a 32 y/o male with MHx significant for EtOH abuse who is brought in with c/o 5 days of persistent vomiting and vomiting blood from 2 days ago. He states last drink was yesterday. Patient otherwise does not provide much other history. Denies other complaints. No f/c. No CP. ROS: 14 systems reviewed, negative other than HPI MHx: HTN, multiple fx in lower extremity in past SHx: Right shoulder Clavicular Fx s/p surgery 10 years ago in [facility]; endoscopy in the past ~ 1 year prior at [facility], per prior note, result is unknown Allergies: NKDA Medications: None Family Hx: Reviewed, no relevant histoyr Social Hx: Lives with friends, no tobacco, extensive EtOH for 20 years; approximately 2 bottles of hard liquor like vodka daily Present on Admission - Present on Admission Any Indicators Present on Admission: No Past Patient History - Past Medical History & Family History Past Medical History?: Yes - Past Social History Alcohol: < 2 Drinks/Day Drugs: Cocaine (one time) - CARDIAC Hx Hypertension: Yes - PULMONARY Hx Respiratory Disorders: No Hx Tuberculosis: No - NEUROLOGICAL Hx Seizures: No - HEENT Hx HEENT Problems: No - RENAL Hx Chronic Kidney Disease: No - ENDOCRINE/METABOLIC Hx Endocrine Disorders: No Hx Diabetes Mellitus Type 2: Yes - HEMATOLOGICAL/ONCOLOGICAL Hx Human Immunodeficiency Virus (HIV): No - INTEGUMENTARY Hx Dermatological Problems: No - MUSCULOSKELETAL/RHEUMATOLOGICAL Hx Fractures: Yes - GASTROINTESTINAL Hx Gastrointestinal Disorders: No - GENITOURINARY/GYNECOLOGICAL Hx Sexually Transmitted Disorders: No - PSYCHIATRIC Hx Anxiety: No Hx Bipolar Disorder: No Hx Depression: No Hx Schizophrenia: Yes - SURGICAL HISTORY Hx Surgeries: Yes - ANESTHESIA Hx Anesthesia: Yes Hx Anesthesia Reactions: No Meds Allergies/Adverse Reactions: Allergies Allergy/AdvReac Type Severity Reaction Status Date / Time No Known Allergies Allergy Verified 05/30/16 09:21 Physical Exam - Constitutional Additional comments: ill appearing - Head Exam Head Exam: ATRAUMATIC, NORMOCEPHALIC - Eye Exam Eye Exam: EOMI, PERRL - ENT Exam ENT Exam: Mucous Membranes Dry - Neck Exam Neck exam: Positive for: Full Rom - Respiratory Exam Respiratory Exam: Clear to Auscultation Bilateral, NORMAL BREATHING PATTERN - Cardiovascular Exam Cardiovascular Exam: Tachycardia, +S1, +S2 - GI/Abdominal Exam GI & Abdominal Exam: Normal Bowel Sounds, Soft, Tenderness - Extremities Exam Extremities exam: Positive for: full ROM, normal inspection - Neurological Exam Neurological exam: Alert, CN II-XII Intact, Oriented x3 Additional comments: appears slightly intoxicated - Psychiatric Exam Psychiatric exam: Normal Affect, Normal Mood - Skin Skin Exam: Dry, Warm Results - Vital Signs Recent Vital Signs: Last Vital Signs Temp 98.9 F 09/14/17 02:07 Pulse 108 H 09/14/17 05:02 Resp 18 09/14/17 04:47 BP 151/96 H 09/14/17 04:47 Pulse Ox 99 09/14/17 05:02 - Labs Result Diagrams: 09/14/17 02:56 09/14/17 02:56 Labs: Laboratory Results - last 24 hr 09/14/17 09/14/17 09/14/17 02:24 02:56 02:56 WBC 10.1 RBC 5.86 Hgb 14.3 D Hct 42.2 MCV 72.0 L D MCH 24.4 L MCHC 33.9 RDW 20.4 H Plt Count 442 H D MPV 8.6 Neut % (Auto) 80.9 H Lymph % (Auto) 12.1 L [place] % (Auto) 6.6 Eos % (Auto) 0.1 Baso % (Auto) 0.3 Neut # (Auto) 8.2 H Lymph # (Auto) 1.2 [place] # (Auto) 0.7 Eos # (Auto) 0.0 Baso # (Auto) 0.0 Sodium 140 Potassium 3.1 L Chloride 85 L Carbon Dioxide 26 Anion Gap 32 H BUN 27 H Creatinine 1.4 Est GFR ( Amer) > 60 Est GFR (Non-Af Amer) 58 POC Glucose (mg/dL) 127 H Random Glucose 147 H Calcium 8.2 L Total Bilirubin 0.8 AST 654 H D ALT 711 H D Alkaline Phosphatase 89 Total Protein 8.7 H Albumin 4.5 Globulin 4.2 H Albumin/Globulin Ratio 1.1 Lipase 317 H Alcohol, Quantitative 239 H - Imaging and Cardiology CT scan - abdomen Status: Report reviewed by me (Fatty liver noted) Assessment & Plan (1) Hematemesis Assessment and Plan: 32 y/o male with MHx significant for extensive EtOH abuse who comes in intoxicated as well as vomiting blood for several days and with deranged LFTs. -Admit ICU -NPO, IVF (receiving Banana bag now) -Protonix gtt -Ceftriaxone for GI PPx in setting of hematemesis -Reglan for n/v IV -Ativan 2 mg IV PRN for any withdrawal signs -GI consult in AM -Repeat EtOH, CMP -No DVT PPx for now given active bleeding Status: Acute (2) UGIB (upper gastrointestinal bleed) Status: Acute (3) Alcohol abuse Status: Acute (4) Abnormal LFTs (liver function tests) Status: Acute
[2017-09-14] MEDS ORDERED: Lactated Ringer's 1,000 ML IV SCH (05:15)
--- NOTE | 2017-09-14 05:41 | CT ---
EXAM: CT Abdomen and Pelvis Without Intravenous Contrast EXAM DATE/TIME: 09/14/2017 3:58 AM CLINICAL HISTORY: 32 years old, male; Pain; Abdominal pain; Generalized; Additional info: Abd pain TECHNIQUE: Axial computed tomography images of the abdomen and pelvis without intravenous contrast. All CT scans at this facility use one or more dose reduction techniques, viz.: automated exposure control; ma/kV adjustment per patient size (including targeted exams where dose is matched to indication; i.e. head); or iterative reconstruction technique. Coronal and sagittal reformatted images were created and reviewed. COMPARISON: No relevant prior studies available. FINDINGS: The liver is decreased in attenuation consistent with fatty infiltration. The gallbladder, spleen, and pancreas appear grossly normal on this non-contrast study. No perinephric stranding. No hydronephrosis. No obstructing calculi. A moderate sized hiatal hernia is present. Colonic diverticulosis is present. A normal appendix is identified axial images 90 through 103. IMPRESSION: Fatty liver. Hiatal hernia.
[2017-09-14 06:04] LABS: INR 1.2 (0.9-1.2); PARTIAL THROMBOPLASTIN TIME 32.7 Seconds (25.6-37.1); PROTHROMBIN TIME 13.6 Seconds (9.8-13.1)
[2017-09-14 08:36] LABS: MEAN CELL VOLUME 71.9 fl (80.0-94.0); MEAN CORPUSCULAR HEMOGLOBIN 22.9 pg (27.0-31.0); MEAN CORPUSCULAR HGB CONC 31.9 g/dL (33.0-37.0); RBC 5.11 Mil/uL (4.40-5.90); RED CELL DISTRIBUTION WIDTH 19.9 % (11.5-14.5); WHITE BLOOD COUNT 12.2 K/uL (4.8-10.8)
[2017-09-14 08:38] LABS: HEMOGLOBIN 11.7 g/dL (12.0-18.0)
[2017-09-14 09:00] LABS: ALBUMIN 3.6 g/dL (3.5-5.0); ALT/SGPT 552 U/L (21-72); AST/SGOT 398 U/L (17-59); BLOOD UREA NITROGEN 24 mg/dl (9-20); CALCIUM 7.3 mg/dL (8.4-10.2); GFR AFRICAN-AMERICAN > 60; GFR NON-AFRICAN AMERICAN > 60
--- NOTE | 2017-09-14 10:40 | CP.PCM.CON ---
<Cathy White - Last Filed: 09/14/17 10:44> History of Present Illness - History of Present Illness History of Present Illness: GI Consult PGY4 Consult Note This is a 32 years old male with hx of HTN, DM II, Schizophrenia with hx of inpt psychiatric admission following suicide attempt, Alcohol Abuse. Pt has a hx of drinking etoh since age 12, reported to be 2 bottles of vodka daily. Pt has had multiple admission here for alcohol intoxication and psychiatric issues. Pt now presents with complaints of vomiting and hematemesis. Per record review, pt reports hx of GI bleed last year and was treated at [facility] and had EGD but does not know results. Per nursing, no GI bleeding, no hematemesis and vomiting, no reported melena or hematochezia. At the time of evaluation, pt is a poor historian with alcohol intoxication appears to be withdrawing with no further emesis. ROS: A 12pt ROS was negative except as above PMH: Fractures, HTN, DM II, Schizophrenia, suicide attempts, Alcohol abuse PSH: Right shoulder Clavicular Fx s/p surgery 10 years ago in [facility] SH: ETOH since 12years, 2 bottles of Vodka daily;Never smoked, no drugs FH: States: Unknown Family Hx Past Patient History - Past Medical History & Family History Past Medical History?: Yes - Past Social History Alcohol: < 2 Drinks/Day Drugs: Cocaine (one time) - CARDIAC Hx Hypertension: Yes - PULMONARY Hx Respiratory Disorders: No Hx Tuberculosis: No - NEUROLOGICAL Hx Seizures: No - HEENT Hx HEENT Problems: No - RENAL Hx Chronic Kidney Disease: No - ENDOCRINE/METABOLIC Hx Endocrine Disorders: No Hx Diabetes Mellitus Type 2: Yes - HEMATOLOGICAL/ONCOLOGICAL Hx Human Immunodeficiency Virus (HIV): No - INTEGUMENTARY Hx Dermatological Problems: No - MUSCULOSKELETAL/RHEUMATOLOGICAL Hx Fractures: Yes - GASTROINTESTINAL Hx Gastrointestinal Disorders: No - GENITOURINARY/GYNECOLOGICAL Hx Sexually Transmitted Disorders: No - PSYCHIATRIC Hx Anxiety: No Hx Bipolar Disorder: No Hx Depression: No Hx Schizophrenia: Yes - SURGICAL HISTORY Hx Surgeries: Yes - ANESTHESIA Hx Anesthesia: Yes Hx Anesthesia Reactions: No Meds Allergies/Adverse Reactions: Allergies Allergy/AdvReac Type Severity Reaction Status Date / Time No Known Allergies Allergy Verified 05/30/16 09:21 - Medications Medications: Current Medications Chlordiazepoxide (Librium) 50 mg PO Q6 LUNA Last Admin: 09/14/17 09:22 Dose: 50 mg Multivitamins/Vitamin C 10 ml/Folic Acid 1 mg/ Sodium Chloride 1,010.2 mls @ 150 mls/hr IV .Q6H45M ONE Stop: 09/14/17 10:59 Last Admin: 09/14/17 05:15 Dose: 150 mls/hr Lactated Ringer's (Lactated Ringer's) 1,000 mls @ 125 mls/hr IV .Q8H LUNA Stop: 09/14/17 21:14 Pantoprazole Sodium 40 mg/ (Sodium Chloride) 100 mls @ 20 mls/hr IVPB Q5H LUNA PRN Reason: 8 MG/HR Ceftriaxone Sodium 1 gm/ (Sodium Chloride) 100 mls @ 100 mls/hr IVPB DAILY LUNA PRN Reason: Protocol Last Admin: 09/14/17 09:18 Dose: 100 mls/hr Potassium Chloride (Potassium Chloride 20 Meq/100 Ml) 100 mls @ 50 mls/hr IVPB Q2 LUNA Stop: 09/14/17 13:59 Lorazepam (Ativan) 2 mg IVP Q6 PRN PRN Reason: signs of EtOH withdrawal Last Admin: 09/14/17 09:11 Dose: 2 mg Metoclopramide HCl (Reglan) 10 mg IVP Q6H PRN PRN Reason: Nausea/Vomiting Last Admin: 09/14/17 05:31 Dose: 10 mg Physical Exam - Constitutional Appears: In Acute Distress, Confused - Head Exam Head Exam: ATRAUMATIC, NORMAL INSPECTION, NORMOCEPHALIC - Eye Exam Eye Exam: EOMI, Normal appearance, PERRL - ENT Exam ENT Exam: Mucous Membranes Dry - Respiratory Exam Respiratory Exam: Clear to Auscultation Bilateral, NORMAL BREATHING PATTERN - Cardiovascular Exam Cardiovascular Exam: Tachycardia - GI/Abdominal Exam GI & Abdominal Exam: Normal Bowel Sounds, Soft. absent: Distended, Firm, Guarding, Tenderness - Rectal Exam Rectal Exam: Deferred - Extremities Exam Extremities exam: Positive for: full ROM, normal inspection - Back Exam Back exam: NORMAL INSPECTION - Neurological Exam Neurological exam: Alert - Psychiatric Exam Psychiatric exam: Anxious - Skin Skin Exam: Dry, Intact, Normal Color, Warm Results - Vital Signs Recent Vital Signs: Last Vital Signs Temp 98.4 F 04/20/18 08:00 Pulse 118 H 09/14/17 10:00 Resp 15 09/14/17 10:00 BP 146/85 09/14/17 10:00 Pulse Ox 98 09/14/17 10:00 - Labs Result Diagrams: 09/14/17 08:23 09/14/17 08:23 Labs: Laboratory Results - last 24 hr 09/14/17 09/14/17 09/14/17 02:24 02:56 02:56 WBC 10.1 RBC 5.86 Hgb 14.3 D Hct 42.2 MCV 72.0 L D MCH 24.4 L MCHC 33.9 RDW 20.4 H Plt Count 442 H D MPV 8.6 Neut % (Auto) 80.9 H Lymph % (Auto) 12.1 L [place] % (Auto) 6.6 Eos % (Auto) 0.1 Baso % (Auto) 0.3 Neut # (Auto) 8.2 H Lymph # (Auto) 1.2 [place] # (Auto) 0.7 Eos # (Auto) 0.0 Baso # (Auto) 0.0 PT INR APTT Sodium 140 Potassium 3.1 L Chloride 85 L Carbon Dioxide 26 Anion Gap 32 H BUN 27 H Creatinine 1.4 Est GFR ( Amer) > 60 Est GFR (Non-Af Amer) 58 POC Glucose (mg/dL) 127 H Random Glucose 147 H Calcium 8.2 L Total Bilirubin 0.8 AST 654 H D ALT 711 H D Alkaline Phosphatase 89 Total Protein 8.7 H Albumin 4.5 Globulin 4.2 H Albumin/Globulin Ratio 1.1 Lipase 317 H Alcohol, Quantitative 239 H Blood Type Antibody Screen BBK History Checked 09/14/17 09/14/17 09/14/17 04:40 05:00 08:23 WBC 12.2 H RBC 5.11 Hgb 11.7 L D Hct 36.7 MCV 71.9 L MCH 22.9 L MCHC 31.9 L RDW 19.9 H Plt Count 330 D MPV Neut % (Auto) Lymph % (Auto) [place] % (Auto) Eos % (Auto) Baso % (Auto) Neut # (Auto) Lymph # (Auto) [place] # (Auto) Eos # (Auto) Baso # (Auto) PT 13.6 H INR 1.2 APTT 32.7 Sodium Potassium Chloride Carbon Dioxide Anion Gap BUN Creatinine Est GFR ( Amer) Est GFR (Non-Af Amer) POC Glucose (mg/dL) Random Glucose Calcium Total Bilirubin AST ALT Alkaline Phosphatase Total Protein Albumin Globulin Albumin/Globulin Ratio Lipase Alcohol, Quantitative Blood Type A POSITIVE Antibody Screen Negative BBK History Checked Patient has bt 09/14/17 08:23 WBC RBC Hgb Hct MCV MCH MCHC RDW Plt Count MPV Neut % (Auto) Lymph % (Auto) [place] % (Auto) Eos % (Auto) Baso % (Auto) Neut # (Auto) Lymph # (Auto) [place] # (Auto) Eos # (Auto) Baso # (Auto) PT INR APTT Sodium 139 Potassium 3.0 L Chloride 94 L Carbon Dioxide 23 Anion Gap 25 H BUN 24 H Creatinine 1.0 Est GFR ( Amer) > 60 Est GFR (Non-Af Amer) > 60 POC Glucose (mg/dL) Random Glucose 130 H Calcium 7.3 L Total Bilirubin 0.8 AST 398 H D ALT 552 H D Alkaline Phosphatase 72 Total Protein 7.1 Albumin 3.6 Globulin 3.5 Albumin/Globulin Ratio 1.0 Lipase Alcohol, Quantitative Blood Type Antibody Screen BBK History Checked Assessment & Plan - Assessment and Plan (Free Text) Assessment: This is a 32yM with pmhx of Schizophrenia, HTN, and alcohol abuse presenting for vomiting and hematemesis. 1. Anemia and Hematemsis-ddx Shirley Bello tear, esophagitis, gastritis, PUD 2. Alcohol abuse/intoxication/withdrawal 3. Schizophrenia Plan: -Continue supportive care with anti-emetics -IVF hydration -H/H stable, monitor labs and transfuse as needed -No active GI bleeding at this time -No signs of cirrhosis with INR, Plt wnl, Ab CT with fatty infiltrate no cirrhosis changes, less concerned for varcieal bleed, maybe secondary to Shirley bello tear with binge drinking followed by vomiting -Will monitor and if continues hematemesis will plan for EGD -Continue IV PPI bid -Clear liquid diet -Will continue to follow closely <Albaro Shrestha - Last Filed: 09/14/17 13:50> Meds - Medications Medications: Current Medications Chlordiazepoxide (Librium) 50 mg PO Q6 [facility] Last Admin: 09/14/17 09:22 Dose: 50 mg Lactated Ringer's (Lactated Ringer's) 1,000 mls @ 125 mls/hr IV .Q8H LUNA Stop: 09/14/17 21:14 Pantoprazole Sodium 40 mg/ (Sodium Chloride) 100 mls @ 20 mls/hr IVPB Q5H LUNA PRN Reason: 8 MG/HR Ceftriaxone Sodium 1 gm/ (Sodium Chloride) 100 mls @ 100 mls/hr IVPB DAILY LUNA PRN Reason: Protocol Last Admin: 09/14/17 09:18 Dose: 100 mls/hr Potassium Chloride (Potassium Chloride 20 Meq/100 Ml) 100 mls @ 50 mls/hr IVPB Q2 LUNA Stop: 09/14/17 13:59 Last Admin: 09/14/17 11:48 Dose: 50 mls/hr Lorazepam (Ativan) 2 mg IVP Q6 PRN PRN Reason: signs of EtOH withdrawal Last Admin: 09/14/17 09:11 Dose: 2 mg Metoclopramide HCl (Reglan) 10 mg IVP Q6H PRN PRN Reason: Nausea/Vomiting Last Admin: 09/14/17 05:31 Dose: 10 mg Results - Vital Signs Recent Vital Signs: Last Vital Signs Temp 98.9 F 09/14/17 12:27 Pulse 112 H 09/14/17 12:27 Resp 15 09/14/17 12:27 BP 164/102 H 09/14/17 12:27 Pulse Ox 100 09/14/17 12:27 - Labs Result Diagrams: 09/14/17 08:23 09/14/17 08:23 Labs: Laboratory Results - last 24 hr 09/14/17 09/14/17 09/14/17 02:24 02:56 02:56 WBC 10.1 RBC 5.86 Hgb 14.3 D Hct 42.2 MCV 72.0 L D MCH 24.4 L MCHC 33.9 RDW 20.4 H Plt Count 442 H D MPV 8.6 Neut % (Auto) 80.9 H Lymph % (Auto) 12.1 L [place] % (Auto) 6.6 Eos % (Auto) 0.1 Baso % (Auto) 0.3 Neut # (Auto) 8.2 H Lymph # (Auto) 1.2 [place] # (Auto) 0.7 Eos # (Auto) 0.0 Baso # (Auto) 0.0 PT INR APTT Sodium 140 Potassium 3.1 L Chloride 85 L Carbon Dioxide 26 Anion Gap 32 H BUN 27 H Creatinine 1.4 Est GFR ( Amer) > 60 Est GFR (Non-Af Amer) 58 POC Glucose (mg/dL) 127 H Random Glucose 147 H Calcium 8.2 L Total Bilirubin 0.8 AST 654 H D ALT 711 H D Alkaline Phosphatase 89 Total Protein 8.7 H Albumin 4.5 Globulin 4.2 H Albumin/Globulin Ratio 1.1 Lipase 317 H Alcohol, Quantitative 239 H Blood Type Antibody Screen BBK History Checked 09/14/17 09/14/17 09/14/17 04:40 05:00 08:23 WBC 12.2 H RBC 5.11 Hgb 11.7 L D Hct 36.7 MCV 71.9 L MCH 22.9 L MCHC 31.9 L RDW 19.9 H Plt Count 330 D MPV Neut % (Auto) Lymph % (Auto) [place] % (Auto) Eos % (Auto) Baso % (Auto) Neut # (Auto) Lymph # (Auto) [place] # (Auto) Eos # (Auto) Baso # (Auto) PT 13.6 H INR 1.2 APTT 32.7 Sodium Potassium Chloride Carbon Dioxide Anion Gap BUN Creatinine Est GFR ( Amer) Est GFR (Non-Af Amer) POC Glucose (mg/dL) Random Glucose Calcium Total Bilirubin AST ALT Alkaline Phosphatase Total Protein Albumin Globulin Albumin/Globulin Ratio Lipase Alcohol, Quantitative Blood Type A POSITIVE Antibody Screen Negative BBK History Checked Patient has bt 09/14/17 09/14/17 08:23 12:30 WBC RBC Hgb Hct MCV MCH MCHC RDW Plt Count MPV Neut % (Auto) Lymph % (Auto) [place] % (Auto) Eos % (Auto) Baso % (Auto) Neut # (Auto) Lymph # (Auto) [place] # (Auto) Eos # (Auto) Baso # (Auto) PT INR APTT Sodium 139 Potassium 3.0 L Chloride 94 L Carbon Dioxide 23 Anion Gap 25 H BUN 24 H Creatinine 1.0 Est GFR ( Amer) > 60 Est GFR (Non-Af Amer) > 60 POC Glucose (mg/dL) 121 H Random Glucose 130 H Calcium 7.3 L Total Bilirubin 0.8 AST 398 H D ALT 552 H D Alkaline Phosphatase 72 Total Protein 7.1 Albumin 3.6 Globulin 3.5 Albumin/Globulin Ratio 1.0 Lipase Alcohol, Quantitative Blood Type Antibody Screen BBK History Checked Assessment & Plan - Assessment and Plan (Free Text) Plan: Patient seen by me and discussed with Dr. White. Agree with the plan.
[2017-09-14] MEDS: Potassium Chloride 20 mEq 100 ML IVPB SCH ×2 (11:48→15:04)
[2017-09-14] MEDS: Pantoprazole 40 MG in Sodium Chloride 0.9% 100 ML IVPB SCH ×2 (16:36→21:00)
[2017-09-15] MEDS: Pantoprazole 40 MG in Sodium Chloride 0.9% 100 ML IVPB SCH ×5 (01:45→21:15)
[2017-09-15 07:05] LABS: BASO % 0.2 % (0.0-2.0); EOS # 0.2 K/uL (0.0-0.7); EOS % 3.1 % (0.0-4.0); HEMOGLOBIN 10.9 g/dL (12.0-18.0); LYMPH # 1.4 K/uL (1.0-4.3); LYMPH % 17.6 % (20.0-40.0); MEAN CELL VOLUME 74.3 fl (80.0-94.0); MEAN CORPUSCULAR HEMOGLOBIN 23.4 pg (27.0-31.0); MEAN CORPUSCULAR HGB CONC 31.5 g/dL (33.0-37.0); MEAN PLATELET VOLUME 8.9 fl (7.2-11.7); MONO # 0.6 K/uL (0.0-0.8); MONO % 7.5 % (0.0-10.0); NEUT # 5.7 K/uL (1.8-7.0); NEUT % 71.6 % (50.0-75.0); RBC 4.67 Mil/uL (4.40-5.90); RED CELL DISTRIBUTION WIDTH 19.7 % (11.5-14.5)
[2017-09-15 07:27] LABS: ALBUMIN 3.1 g/dL (3.5-5.0); ALT/SGPT 344 U/L (21-72); AST/SGOT 182 U/L (17-59); BLOOD UREA NITROGEN 13 mg/dl (9-20); CALCIUM 7.8 mg/dL (8.4-10.2); GFR AFRICAN-AMERICAN > 60; GFR NON-AFRICAN AMERICAN > 60
[2017-09-15] MEDS ORDERED: Potassium Chloride 20 mEq ER Tab PO ONE (08:30)
--- NOTE | 2017-09-15 14:35 | CP.PCM.PN ---
Subjective - Date & Time of Evaluation Date of Evaluation: 09/15/17 Time of Evaluation: 08:45 - Subjective Subjective: no headache no further vomiting nor hematemesis no abd pain noted to be tremulous no CP no SOB Objective - Vital Signs/Intake and Output Vital Signs (last 24 hours): Temp Pulse Resp BP Pulse Ox 98.9 F 83 18 143/87 98 09/15/17 12:47 09/15/17 12:47 09/15/17 12:47 09/15/17 12:47 09/15/17 12:47 Intake and Output: 09/15/17 09/15/17 06:59 18:59 Intake Total 2275 Output Total 9 Balance 2266 - Medications Medications: Current Medications Chlordiazepoxide (Librium) 25 mg PO Q6 LUNA Pantoprazole Sodium 40 mg/ (Sodium Chloride) 100 mls @ 20 mls/hr IVPB Q5H LUNA PRN Reason: 8 MG/HR Last Admin: 09/15/17 06:32 Dose: 20 mls/hr Ceftriaxone Sodium 1 gm/ (Sodium Chloride) 100 mls @ 100 mls/hr IVPB DAILY LUNA PRN Reason: Protocol Last Admin: 09/15/17 09:06 Dose: 100 mls/hr Lorazepam (Ativan) 2 mg IVP Q6 PRN PRN Reason: signs of EtOH withdrawal Last Admin: 09/14/17 09:11 Dose: 2 mg Metoclopramide HCl (Reglan) 10 mg IVP Q6H PRN PRN Reason: Nausea/Vomiting Last Admin: 09/14/17 05:31 Dose: 10 mg - Labs Labs: 09/15/17 06:15 09/15/17 06:15 PT 13.6 Seconds (9.8-13.1) H 09/14/17 05:00 INR 1.2 (0.9-1.2) 09/14/17 05:00 APTT 32.7 Seconds (25.6-37.1) 09/14/17 05:00 - Constitutional Appears: Unkempt, Chronically Ill - Head Exam Head Exam: NORMAL INSPECTION, NORMOCEPHALIC - Eye Exam Eye Exam: EOMI, Normal appearance, PERRL Pupil Exam: NORMAL ACCOMODATION - ENT Exam ENT Exam: Mucous Membranes Moist, Normal External Ear Exam - Neck Exam Neck Exam: Full ROM. absent: Meningismus - Respiratory Exam Respiratory Exam: NORMAL BREATHING PATTERN. absent: Respiratory Distress - Cardiovascular Exam Cardiovascular Exam: REGULAR RHYTHM, +S1, +S2 - GI/Abdominal Exam GI & Abdominal Exam: Soft, Normal Bowel Sounds. absent: Tenderness - Extremities Exam Extremities Exam: Full ROM, Normal Capillary Refill. absent: Calf Tenderness, Pedal Edema - Back Exam Back Exam: Full ROM. absent: CVA tenderness (L), CVA tenderness (R) - Neurological Exam Neurological Exam: Alert, Awake Additional comments: [id number] to person and place - Psychiatric Exam Psychiatric exam: Flat Affect - Skin Skin Exam: Normal Color, Pallor, Warm Assessment and Plan (1) UGIB (upper gastrointestinal bleed) Status: Acute (2) Alcohol withdrawal Status: Chronic (3) Abnormal LFTs (liver function tests) Status: Chronic (4) Alcohol abuse Status: Chronic (5) Acute blood loss anemia Status: Acute (6) Schizophrenia Status: Chronic - Assessment and Plan (Free Text) Assessment: 32 y/o gent with hx of Alcohol Abuse , Schizophrenia, was brought in intoxicated , complaining of persistent nausea and vomiting x 5 days , followed by 2 days of hematemesis. (1) UGIB (upper gastrointestinal bleed) ? Mallowry Bello Tear vs bleeding from Alcohol Gastritis Status: Acute Hgb 14K on admission ( prob hemoconcentrated due to dehydration , dropped to 11.7 then now 10.9 no further hematemesis cont Protonix drip cont IV Ceftriaxone GI consult started on Liquid diet (2) Alcohol withdrawal Status: Chronic Alcohol level on admission was over 200 Pt now trenulous IVF hydration Thiamine and FA started on RTC Librium, prn Ativan PT consult (3) Abnormal LFTs (liver function tests) sec to ETOH abuse Status: Chronic (4) Alcohol abuse Status: Chronic (5) Acute blood loss anemia Status: Acute sec to GI Bleed transfuse prn VS stable (6) Schizophrenia Status: Chronic restart Risperdal pt noncompliant with med
[2017-09-16 00:11] VITALS: RESP 18
[2017-09-16] MEDS: Pantoprazole 40 MG in Sodium Chloride 0.9% 100 ML IVPB SCH ×2 (02:15→06:47)
[2017-09-16 04:57] VITALS: O2SAT 98
[2017-09-16 07:36] LABS: MEAN CELL VOLUME 74.8 fl (80.0-94.0); MEAN CORPUSCULAR HGB CONC 32.2 g/dL (33.0-37.0); RBC 4.57 Mil/uL (4.40-5.90); RED CELL DISTRIBUTION WIDTH 20.3 % (11.5-14.5); WHITE BLOOD COUNT 6.2 K/uL (4.8-10.8)
[2017-09-16 07:55] LABS: BLOOD UREA NITROGEN 7 mg/dl (9-20); CALCIUM 8.5 mg/dL (8.4-10.2); GFR AFRICAN-AMERICAN > 60; GFR NON-AFRICAN AMERICAN > 60
[2017-09-16 08:08] VITALS: BP 125/79; PULSE 73; TEMP 97.7
[2017-09-16] MEDS ORDERED: Potassium Chloride 20 mEq ER Tab PO ONE (09:30)
--- NOTE | 2017-09-16 10:46 | CP.PCM.DIS ---
Provider - Provider Date of Admission: 09/14/17 04:32 Attending physician: Stephanie Camarena MD Consults: GI : DR Shrestha Time Spent in preparation of Discharge (in minutes): 30 Diagnosis - Discharge Diagnosis (1) UGIB (upper gastrointestinal bleed) Status: Acute (2) Alcohol withdrawal Status: Chronic (3) Abnormal LFTs (liver function tests) Status: Chronic (4) Alcohol abuse Status: Chronic (5) Acute blood loss anemia Status: Acute (6) Schizophrenia Status: Chronic Hospital Course - Lab Results Lab Results: Micro Results 09/14/17 09:10 Naris MRSA Culture (Admit) - Final MRSA NOT DETECTED 09/14/17 09:10 Nose MRSA Culture (Admit) - Final MRSA NOT DETECTED Most Recent Lab Values WBC 6.2 K/uL (4.8-10.8) 09/16/17 05:20 RBC 4.57 Mil/uL (4.40-5.90) 09/16/17 05:20 Hgb 11.0 g/dL (12.0-18.0) L 09/16/17 05:20 Hct 34.2 % (35.0-51.0) L 09/16/17 05:20 MCV 74.8 fl (80.0-94.0) L 09/16/17 05:20 MCH 24.0 pg (27.0-31.0) L 09/16/17 05:20 MCHC 32.2 g/dL (33.0-37.0) L 09/16/17 05:20 RDW 20.3 % (11.5-14.5) H 09/16/17 05:20 Plt Count 180 K/uL (130-400) 09/16/17 05:20 MPV 8.9 fl (7.2-11.7) 09/15/17 06:15 Neut % (Auto) 71.6 % (50.0-75.0) 09/15/17 06:15 Lymph % (Auto) 17.6 % (20.0-40.0) L 09/15/17 06:15 [place] % (Auto) 7.5 % (0.0-10.0) 09/15/17 06:15 Eos % (Auto) 3.1 % (0.0-4.0) 09/15/17 06:15 Baso % (Auto) 0.2 % (0.0-2.0) 09/15/17 06:15 Neut # (Auto) 5.7 K/uL (1.8-7.0) 09/15/17 06:15 Lymph # (Auto) 1.4 K/uL (1.0-4.3) 09/15/17 06:15 [place] # (Auto) 0.6 K/uL (0.0-0.8) 09/15/17 06:15 Eos # (Auto) 0.2 K/uL (0.0-0.7) 09/15/17 06:15 Baso # (Auto) 0.0 K/uL (0.0-0.2) 09/15/17 06:15 PT 13.6 Seconds (9.8-13.1) H 09/14/17 05:00 INR 1.2 (0.9-1.2) 09/14/17 05:00 APTT 32.7 Seconds (25.6-37.1) 09/14/17 05:00 Sodium 141 mmol/l (132-148) 09/16/17 05:20 Potassium 3.3 MMOL/L (3.6-5.0) L 09/16/17 05:20 Chloride 103 mmol/L (98-107) 09/16/17 05:20 Carbon Dioxide 26 mmol/L (22-30) 09/16/17 05:20 Anion Gap 15 (10-20) 09/16/17 05:20 BUN 7 mg/dl (9-20) L 09/16/17 05:20 Creatinine 0.8 mg/dl (0.8-1.5) 09/16/17 05:20 Est GFR ( Amer) > 60 09/16/17 05:20 Est GFR (Non-Af Amer) > 60 09/16/17 05:20 POC Glucose (mg/dL) 81 mg/dL (65-110) 09/15/17 21:12 Random Glucose 90 mg/dL (75-110) 09/16/17 05:20 Calcium 8.5 mg/dL (8.4-10.2) 09/16/17 05:20 Total Bilirubin 1.0 mg/dl (0.2-1.3) 09/15/17 06:15 AST 182 U/L (17-59) H D 09/15/17 06:15 ALT 344 U/L (21-72) H D 09/15/17 06:15 Alkaline Phosphatase 69 U/L (38-126) 09/15/17 06:15 Total Protein 6.3 G/DL (6.3-8.2) 09/15/17 06:15 Albumin 3.1 g/dL (3.5-5.0) L 09/15/17 06:15 Globulin 3.2 gm/dL (2.2-3.9) 09/15/17 06:15 Albumin/Globulin Ratio 1.0 (1.0-2.1) 09/15/17 06:15 Lipase 317 U/L (23-300) H 09/14/17 02:56 Alcohol, Quantitative 239 mg/dl (0-10) H 09/14/17 02:56 Blood Type A POSITIVE 09/14/17 04:40 Antibody Screen Negative 09/14/17 04:40 BBK History Checked Patient has bt 09/14/17 04:40 - Hospital Course Hospital Course: 32 y/o gent with hx of Alcohol Abuse , Schizophrenia, was brought in intoxicated , complaining of persistent nausea and vomiting x 5 days , followed by 2 days of hematemesis. His alcohol level was elevated. Hgb was normal. He was started on IVF hydration, Thiamine, FA and Protonix drip. GI was consulted- no plan for EGD unless H/H drops. Hgb slightly dropped however pt did not any further hematemesis since admission. (1) UGIB (upper gastrointestinal bleed) ? Mallowry Bello Tear vs bleeding from Alcohol Gastritis Status: Acute Hgb 14K on admission ( prob hemoconcentrated due to dehydration , dropped to 11.7 then now 11 no further hematemesis since admission received Protonix drip IV Ceftriaxone GI consulted started on Liquid diet then upgraded to soft diet, tolerated PO diet (2) Alcohol withdrawal Status: Chronic Alcohol level on admission was over 200 IVF hydration Thiamine and FA started on RTC Librium, prn Ativan PT consulted- rec Home with PT Today pt no longer tremulous- stable gait , walks to the bathroom and the unit with stable gait (3) Abnormal LFTs (liver function tests) sec to ETOH abuse Status: Chronic (4) Alcohol abuse Status: Chronic (5) Acute blood loss anemia Status: Acute sec to GI Bleed VS stable, no further bleed, no transfusion necessary (6) Schizophrenia Status: Chronic restarted Risperdal pt noncompliant with med ff up clinic Discharge Exam - Head Exam Head Exam: ATRAUMATIC, NORMAL INSPECTION, NORMOCEPHALIC Additional comments: - Constitutional Appears: Unkempt, Chronically Ill no signs of withdrawal - Head Exam Head Exam: NORMAL INSPECTION, NORMOCEPHALIC - Eye Exam Eye Exam: EOMI, Normal appearance, PERRL Pupil Exam: NORMAL ACCOMODATION - ENT Exam ENT Exam: Mucous Membranes Moist, Normal External Ear Exam - Neck Exam Neck Exam: Full ROM. absent: Meningismus - Respiratory Exam Respiratory Exam: NORMAL BREATHING PATTERN. absent: Respiratory Distress - Cardiovascular Exam Cardiovascular Exam: REGULAR RHYTHM, +S1, +S2 - GI/Abdominal Exam GI & Abdominal Exam: Soft, Normal Bowel Sounds. absent: Tenderness - Extremities Exam Extremities Exam: Full ROM, Normal Capillary Refill. absent: Calf Tenderness, Pedal Edema Gait stable - Back Exam Back Exam: Full ROM. absent: CVA tenderness (L), CVA tenderness (R) - Neurological Exam Neurological Exam: Alert, Awake Additional comments: oriented to person and place and month - Psychiatric Exam Psychiatric exam: Flat Affect - Skin Skin Exam: Normal Color, Pallor, Warm Discharge Plan - Discharge Medications Prescriptions: chlordiazePOXIDE [Chlordiazepoxide HCl] 10 mg PO Q6 #10 cap Omeprazole 40 mg PO DAILY #30 capsule. Risperidone [Risperdal] 1 mg PO BID #60 tablet Thiamine [Vitamin B1 Tab] 100 mg PO DAILY #30 tab - Follow Up Plan Condition: GOOD Disposition: HOME/ ROUTINE Additional Instructions: ff up CF in 1 wk appt with [facility] Referrals[facility] [Outside] [facility] [Outside]
== END 2017-09-16 14:00 | disposition home or self-care (01) | DRG 894 ==
LOC: H.ER 01:59 → EDBD 01:59 → H.ERHOLD 04:32 → H.ICU/CCU 06:31 → H.TEL 20:44
PROVIDERS: ADMIT Internal Medicine; ATTEND Internal Medicine
DX: K22.6 Gastro-esophageal laceration-hemorrhage syndrome (principal); E86.0 Dehydration; F10.239 Alcohol dependence with withdrawal, unspecified; F20.9 Schizophrenia, unspecified; Z91.14 Patient's other noncompliance with medication regimen; R94.5 Abnormal results of liver function studies; D62 Acute posthemorrhagic anemia; E11.9 Type 2 diabetes mellitus without complications; I10 Essential (primary) hypertension; K29.20 Alcoholic gastritis without bleeding; K44.9 Diaphragmatic hernia without obstruction or gangrene; K76.0 Fatty (change of) liver, not elsewhere classified

== ENCOUNTER 2017-12-15 22:24 | Inpatient (IN) | payer SELFPAY ==
[2017-12-15 22:24] VITALS: BMI 26.4
[2017-12-15] MEDS ORDERED: Pantoprazole 40 MG in Sodium Chloride 0.9% 100 ML IVPB STA (22:45)
[2017-12-15] MEDS ORDERED: Sodium Chloride 0.9% 1,000 ML IV STA ×2 (22:46→23:28)
[2017-12-15] MEDS ORDERED: Sterile Water 10 ML IV ONE (22:55)
--- NOTE | 2017-12-15 22:59 | ED PDOC ---
HPI: Abdomen Time Seen by Provider: 12/15/17 22:34 Chief Complaint (Nursing): GI Problem Chief Complaint (Provider): GI Problem History Per: Patient History/Exam Limitations: no limitations Onset/Duration Of Symptoms: Days Location Of Pain/Discomfort: Diffuse Associated Symptoms: Nausea, Vomiting Additional Complaint(s): Washington Barry is a 32 year old male with a past medical history of diabetes, alcohol abuse, and schizophrenia who is presenting to the ED for evaluation of continuous bloody vomiting, onset 5 days ago. Patient states that he has had more than 20 episodes of bloody vomiting and is unsure of blood in the stool but thinks there is. Patient also complains of diffuse abdominal pain associated with dizziness and weakness. He states that he last drank three days ago and that when he drinks he consumes 3 bottles of vodka. Last time he claims he had a colonoscopy or endoscopy was three years ago. He also reports that he is not taking any meds currently because he ran out. PMD: none provided Past Medical History Reviewed: Historical Data, Nursing Documentation, Vital Signs Vital Signs: Last Vital Signs Temp 98.4 F 12/16/17 03:16 Pulse 112 H 12/16/17 03:16 Resp 16 12/16/17 03:16 BP 139/78 12/16/17 03:16 Pulse Ox 98 12/16/17 03:16 - Medical History PMH: Diabetes, Fractures, HTN, Schizophrenia Denies: Anxiety, Bipolar Disorder, Depression, Hepatitis, HIV, Personality Disorder, Chronic Kidney Disease, Seizures, Sexually Transmitted Disease - Surgical History Surgical History: Endoscopy - Family History Family History: States: Unknown Family Hx - Social History Current smoker - smoking cessation education provided: No Alcohol: > 2 Drinks/Day Drugs: Denies - Home Medications Home Medications: Ambulatory Orders Medication Instructions Recorded Omeprazole 40 mg PO DAILY #30 capsule. 09/16/17 Risperidone [Risperdal] 1 mg PO BID #60 tablet 09/16/17 Thiamine [Vitamin B1 Tab] 100 mg PO DAILY #30 tab 09/16/17 chlordiazePOXIDE [Chlordiazepoxide 10 mg PO Q6 #10 cap 09/16/17 HCl] risperiDONE [RisperDAL Tab] 1 mg PO BID tab 09/16/17 - Allergies Allergies/Adverse Reactions: Allergies Allergy/AdvReac Type Severity Reaction Status Date / Time No Known Allergies Allergy Verified 12/15/17 22:28 Review of Systems ROS Statement: Except As Marked, All Systems Reviewed And Found Negative Gastrointestinal: Positive for: Vomiting, Abdominal Pain, Hematochezia (possible ) Neurological: Positive for: Weakness, Dizziness Physical Exam - Reviewed Nursing Documentation Reviewed: Yes Vital Signs Reviewed: Yes - Physical Exam Appears: Positive for: Non-toxic, In Acute Distress (covered in red blood, tremors) Head Exam: Positive for: ATRAUMATIC, NORMAL INSPECTION, NORMOCEPHALIC Skin: Positive for: Normal Color, Warm, DRY Eye Exam: Positive for: EOMI, Normal appearance, PERRL ENT: Positive for: Normal ENT Inspection, Other (mild tongue fasciculations ) Neck: Positive for: Normal Cardiovascular/Chest: Positive for: Tachycardia Respiratory: Positive for: Normal Breath Sounds. Negative for: Respiratory Distress Gastrointestinal/Abdominal: Positive for: Soft, Tenderness (minimal diffuse) Back: Positive for: Normal Inspection Rectal: Positive for: Black Stool Extremity: Positive for: Normal ROM. Negative for: Deformity, Swelling Neurologic/Psych: Positive for: Alert, Oriented. Negative for: Motor/Sensory Deficits - Laboratory Results Result Diagrams: 12/15/17 22:45 12/15/17 22:45 - ECG O2 Sat by Pulse Oximetry: 98 (RA) Pulse Ox Interpretation: Normal - Critical Care Total Time (In Min): 60 Documented Critical Care: Time excludes all time spent performint seperately billable procedures Medical Decision Making Medical Decision Making: Time: 22:44 Impression: 32 year old male with history of diabetes, schizophrenia, and alcoholism presenting with hematemesis Plan: --Patient immediately placed in room and put on monitor. --two 18 virgil IVs placed --Patient likely suffering from GI bleed secondary to possible ulcer vs. alcohol induced gastritis --Will initiate PPI drip and bolus --Will closely monitor patient Studies ordered: --Blood Type and Screen --EKG --Alcohol Serum --Ammonia --Biliruben, Direct --CMP --Drug Screen--Lipase --Chest X-Ray --IV Fluids --Protonix In 100 ml IVPB --Zofran 4 mg IVP --Blood Culture --Urine Culture --Occult Blood, Stool --Urinalysis 1115PM -HR 120s, BP stable -3rd IV line placed by , 18G in L EJ -Case discussed with Dr. Shrestha who agrees with management, recommends Hgb Q4 , protonix, fluids, and transfusion for Hgb of <8 -Will admit to ICU Scribe Attestation: Documented by Leela Almendarez, acting as a scribe for Jim Mendoza MD. Provider Scribe Attestation: All medical record entries made by the Scribe were at my direction and personally dictated by me. I have reviewed the chart and agree that the record accurately reflects my personal performance of the history, physical exam, medical decision making, and the department course for this patient. I have also personally directed, reviewed, and agree with the discharge instructions and disposition. Disposition - Clinical Impression Clinical Impression: Alcohol withdrawal, UGIB (upper gastrointestinal bleed) - Patient ED Disposition Is Patient to be Admitted: Yes - Disposition Disposition Time: 23:15 Condition: STABLE
[2017-12-15 23:17] LABS: BASO % 0.1 % (0.0-2.0); LYMPH # 1.4 K/uL (1.0-4.3); LYMPH % 6.2 % (20.0-40.0); MEAN CORPUSCULAR HGB CONC 32.4 g/dL (33.0-37.0); MEAN PLATELET VOLUME 9.7 fl (7.2-11.7); MONO # 1.2 K/uL (0.0-0.8); MONO % 5.3 % (0.0-10.0); NEUT # 20.6 K/uL (1.8-7.0); NEUT % 88.4 % (50.0-75.0); PLATELET COUNT 184 K/uL (130-400); RBC 4.39 Mil/uL (4.40-5.90); RED CELL DISTRIBUTION WIDTH 21.4 % (11.5-14.5); WHITE BLOOD COUNT 23.3 K/uL (4.8-10.8)
[2017-12-15 23:22] LABS: VENOUS BLOOD GAS BASE EXCESS 1.7 mmol/L (0.0-2.0); VENOUS BLOOD GAS PCO2 27 mmHg (40-60); VENOUS BLOOD GAS PO2 16 mm/Hg (30-55); VENOUS BLOOD PH 7.54 (7.32-7.43)
[2017-12-15 23:26] LABS: ALB/GLOB RATIO 1.4 (1.0-2.1); ALBUMIN 4.8 g/dL (3.5-5.0); ALT/SGPT 78 U/L (21-72); BILIRUBIN,DIRECT 0.4 mg/ml (0.0-0.4); BLOOD UREA NITROGEN 35 mg/dl (9-20); CALCIUM 7.9 mg/dL (8.4-10.2); GFR AFRICAN-AMERICAN 22; GFR NON-AFRICAN AMERICAN 18; LIPASE 197 U/L (23-300)
[2017-12-15] MEDS ORDERED: Piperacillin/Tazobact 3.375 GM in Sodium Chloride 0.9% 100 ML IVPB STA (23:26)
[2017-12-15] MEDS ORDERED: Octreotide 500 mcg/ml Inj IV STA (23:31)
[2017-12-15 23:33] LABS: AST/SGOT 293 U/L (17-59)
[2017-12-15 23:39] LABS: INR 1.2 (0.9-1.2); PARTIAL THROMBOPLASTIN TIME 26.1 Seconds (25.6-37.1); PROTHROMBIN TIME 12.9 Seconds (9.8-13.1)
[2017-12-15] MEDS ORDERED: Potassium Chloride 20 mEq 100 ML ONE (23:40)
[2017-12-15] MEDS ORDERED: Vancomycin 1 g Inj ONE (23:41)
[2017-12-15] MEDS ORDERED: Lactated Ringer's 1,000 ML IV SCH (23:45)
[2017-12-16] MEDS ORDERED: Potassium Chloride 20 mEq 100 ML IVPB SCH
--- NOTE | 2017-12-16 00:01 | CP.PCM.HP ---
History of Present Illness - History of Present Illness History of Present Illness: CC: UGIB/hematemesis HPI: This is a 32 y/o male with MHx significant for ?schizophrenia, EtOH abuse and prior GIB who comes in again with EtOH abuse and GIB. Per patient he has been having intermittent hematemesis for 5 days. Unaware of blood in stool. Had abd pain, and feels week. Last drink was 3 days ago. He consumes 2-3 bottles of vodka daily. He apparently reported colonoscopy and EGD done in the recent past even on his last visit here for similar symptoms but is unaware of the result. Patient was here in August with similar presentation and seen by GI, and it was thought to be gastritis or MW tear as opposed to cirrhotic bleeding. ROS: 14 systems reviewed, negative other than HPI MHx: HTN, ?schizophrenia, multiple lower extremity fx in past SHx: Right shoulder clavicular Fx s/p surgery 10 years ago in [facility]; endoscopy in the past ~ 1 year prior at [place], per prior note, result is unknown Allergies: NKDA Medications: None Family Hx: Reviewed, no relevant histoyr Social Hx: Lives with friends, no tobacco, extensive EtOH for 20 years; up to 3 bottles of hard liquor like vodka daily Present on Admission - Present on Admission Any Indicators Present on Admission: No Past Patient History - Past Medical History & Family History Past Medical History?: Yes - Past Social History Alcohol: > 2 Drinks/Day Drugs: Denies - CARDIAC Hx Hypertension: Yes - PULMONARY Hx Respiratory Disorders: No Hx Tuberculosis: No - NEUROLOGICAL Hx Seizures: No - HEENT Hx HEENT Problems: No - RENAL Hx Chronic Kidney Disease: No - ENDOCRINE/METABOLIC Hx Endocrine Disorders: No Hx Diabetes Mellitus Type 2: Yes - HEMATOLOGICAL/ONCOLOGICAL Hx Human Immunodeficiency Virus (HIV): No - INTEGUMENTARY Hx Dermatological Problems: No - MUSCULOSKELETAL/RHEUMATOLOGICAL Hx Fractures: Yes - GASTROINTESTINAL Hx Gastrointestinal Disorders: No - GENITOURINARY/GYNECOLOGICAL Hx Sexually Transmitted Disorders: No - PSYCHIATRIC Hx Anxiety: No Hx Bipolar Disorder: No Hx Depression: No Hx Schizophrenia: Yes - SURGICAL HISTORY Hx Surgeries: Yes - ANESTHESIA Hx Anesthesia: Yes Hx Anesthesia Reactions: No Meds Allergies/Adverse Reactions: Allergies Allergy/AdvReac Type Severity Reaction Status Date / Time No Known Allergies Allergy Verified 12/15/17 22:28 Physical Exam - Constitutional Appears: No Acute Distress - Head Exam Head Exam: ATRAUMATIC, NORMOCEPHALIC - Eye Exam Eye Exam: EOMI, PERRL - ENT Exam ENT Exam: Mucous Membranes Dry - Neck Exam Neck exam: Positive for: Full Rom - Respiratory Exam Respiratory Exam: Clear to Auscultation Bilateral, NORMAL BREATHING PATTERN - Cardiovascular Exam Cardiovascular Exam: Tachycardia, +S1, +S2 - GI/Abdominal Exam GI & Abdominal Exam: Normal Bowel Sounds, Soft, Tenderness - Extremities Exam Extremities exam: Positive for: full ROM, normal inspection - Neurological Exam Neurological exam: Alert, CN II-XII Intact, Oriented x3 - Psychiatric Exam Psychiatric exam: Normal Affect, Normal Mood - Skin Skin Exam: Dry, Warm Results - Vital Signs Recent Vital Signs: Last Vital Signs Temp 100.2 F H 12/15/17 22:28 Pulse 122 H 12/15/17 23:33 Resp 16 12/15/17 23:33 BP 123/65 12/15/17 23:33 Pulse Ox 98 12/15/17 23:46 - Labs Result Diagrams: 12/15/17 22:45 12/15/17 22:45 Labs: Laboratory Results - last 24 hr 12/15/17 12/15/17 12/15/17 22:45 22:45 22:45 WBC 23.3 H D RBC 4.39 L Hgb 11.0 L Hct 33.8 L MCV 77.0 L D MCH 25.0 L MCHC 32.4 L RDW 21.4 H Plt Count 184 MPV 9.7 Neut % (Auto) 88.4 H Lymph % (Auto) 6.2 L [place] % (Auto) 5.3 Eos % (Auto) 0.0 Baso % (Auto) 0.1 Neut # (Auto) 20.6 H Lymph # (Auto) 1.4 [place] # (Auto) 1.2 H Eos # (Auto) 0.0 Baso # (Auto) 0.0 PT INR APTT pO2 VBG pH VBG pCO2 VBG HCO3 VBG Total CO2 VBG O2 Sat (Calc) VBG Base Excess VBG Potassium Glucose Lactate FiO2 Crit Value Called To Crit Value Called By Crit Value Read Back Blood Gas Notified Time Sodium 132 Potassium 2.7 L Chloride 79 L D Carbon Dioxide 21 L Anion Gap 35 H BUN 35 H Creatinine 3.8 H Est GFR ( Amer) 22 Est GFR (Non-Af Amer) 18 Random Glucose 165 H Calcium 7.9 L Total Bilirubin 0.9 Direct Bilirubin 0.4 AST 293 H D ALT 78 H D Alkaline Phosphatase 69 Ammonia 21 D Total Protein 8.2 Albumin 4.8 Globulin 3.4 Albumin/Globulin Ratio 1.4 Lipase 197 Venous Blood Potassium Stool Occult Blood Alcohol, Quantitative < 10 BBK History Checked 12/15/17 12/15/17 12/15/17 22:45 22:45 22:45 WBC RBC Hgb Hct MCV MCH MCHC RDW Plt Count MPV Neut % (Auto) Lymph % (Auto) [place] % (Auto) Eos % (Auto) Baso % (Auto) Neut # (Auto) Lymph # (Auto) [place] # (Auto) Eos # (Auto) Baso # (Auto) PT 12.9 INR 1.2 APTT 26.1 pO2 VBG pH VBG pCO2 VBG HCO3 VBG Total CO2 VBG O2 Sat (Calc) VBG Base Excess VBG Potassium Glucose Lactate FiO2 Crit Value Called To Crit Value Called By Crit Value Read Back Blood Gas Notified Time Sodium Potassium Chloride Carbon Dioxide Anion Gap BUN Creatinine Est GFR ( Amer) Est GFR (Non-Af Amer) Random Glucose Calcium Total Bilirubin Direct Bilirubin AST ALT Alkaline Phosphatase Ammonia Total Protein Albumin Globulin Albumin/Globulin Ratio Lipase Venous Blood Potassium Stool Occult Blood Positive H Alcohol, Quantitative BBK History Checked Patient has bt 12/15/17 23:14 WBC RBC Hgb Hct MCV MCH MCHC RDW Plt Count MPV Neut % (Auto) Lymph % (Auto) [place] % (Auto) Eos % (Auto) Baso % (Auto) Neut # (Auto) Lymph # (Auto) [place] # (Auto) Eos # (Auto) Baso # (Auto) PT INR APTT pO2 16 L VBG pH 7.54 H VBG pCO2 27 L VBG HCO3 24.4 VBG Total CO2 23.9 VBG O2 Sat (Calc) 39.6 L VBG Base Excess 1.7 VBG Potassium 2.3 L* Glucose 179 H Lactate 13.3 H* FiO2 21.0 Crit Value Called To Dr bruce armstrong Crit Value Called By 6075 Crit Value Read Back Y Blood Gas Notified Time 2322 Sodium 133.0 Potassium Chloride 79.0 L Carbon Dioxide Anion Gap BUN Creatinine Est GFR ( Amer) Est GFR (Non-Af Amer) Random Glucose Calcium Total Bilirubin Direct Bilirubin AST ALT Alkaline Phosphatase Ammonia Total Protein Albumin Globulin Albumin/Globulin Ratio Lipase Venous Blood Potassium 2.3 L* Stool Occult Blood Alcohol, Quantitative BBK History Checked Assessment & Plan (1) UGIB (upper gastrointestinal bleed) Assessment and Plan: 32 y/o male with extensive history of EtOH abuse and prior GIB presenting again with similar scenario -- UGIB in setting of med noncompliance and EtOH abuse. 1) UGIB -ICU -NPO, IVF -Type and Screen, serial CBCs -Protonix gtt -Octreotide gtt also started -Ceftriaxone will be started for PPx, as well as given the elevated WC -GI consult (Fady) 2) ARF -- likely 2/2 vol dep from vomiting/blood loss -IVF -check UA -Repeat BMP in AM 3) Hypo K -Replete conservatively -Repeat BMP 4) EtOH abuse -CIWA with IV ativan -Vitamins/b12/folic acid to start in AM after initial resuscitation 5) SCDs only for DVT PPx Status: Acute (2) Renal insufficiency Status: Acute (3) Alcohol abuse Status: Chronic (4) Hypokalemia Status: Acute (5) Leukocytosis Status: Acute (6) DVT prophylaxis Status: Acute
[2017-12-16 00:18] LABS: SQUAMOUS EPITHIAL 2 /hpf (0-5); URINE BACTERIA RARE (<OCC); URINE BILIRUBIN NEGATIVE (NEGATIVE); URINE BLOOD LARGE (NEGATIVE); URINE CLARITY CLOUDY (Clear); URINE COLOR AMBER (YELLOW); URINE GLUCOSE (UA) 50 mg/dL (Normal); URINE LEUKOCYTE ESTERASE NEG Leu/uL (Negative); URINE PROTEIN 100 mg/dL (NEGATIVE); URINE UROBILINOGEN 0.2-1.0 mg/dL (0.2-1.0)
[2017-12-16 00:35] LABS: BARBITURATES, UR NEGATIVE (NEGATIVE); BENZODIAZEPINES, UR NEGATIVE (NEGATIVE); OPIATES, UR NEGATIVE (NEGATIVE); PHENCYCLIDINE, UR NEGATIVE (NEGATIVE)
[2017-12-16 01:17] LABS: BANDS 2 % (0-2); LYMPHOCYTE 7 % (20-50); MONOCYTE 4 % (0-10); NEUTROPHIL 87 % (42-75); PLATELET ESTIMATE NORMAL (NORMAL); TOTAL CELLS COUNTED 100
[2017-12-16 01:18] LABS: ANISOCYTOSIS SLIGHT; HYPOCHROMIC SLIGHT; STOMATOCYTES MODERATE
[2017-12-16] MEDS ORDERED: Potassium Chloride 20 mEq 100 ML ONE (01:29)
[2017-12-16] MEDS ORDERED: cefTRIAXone (Rocephin) 1 gm Inj ONE (01:57)
[2017-12-16] MEDS: Pantoprazole 40 MG in Sodium Chloride 0.9% 100 ML IVPB SCH ×3 (05:47→20:39)
[2017-12-16 05:48] LABS: HEMOGLOBIN 8.8 g/dL (12.0-18.0); MEAN CELL VOLUME 78.1 fl (80.0-94.0); MEAN CORPUSCULAR HEMOGLOBIN 25.2 pg (27.0-31.0); MEAN CORPUSCULAR HGB CONC 32.3 g/dL (33.0-37.0); RBC 3.48 Mil/uL (4.40-5.90); RED CELL DISTRIBUTION WIDTH 21.1 % (11.5-14.5); WHITE BLOOD COUNT 16.3 K/uL (4.8-10.8)
[2017-12-16 06:11] LABS: CALCIUM 6.2 mg/dL (8.4-10.2)
[2017-12-16] MEDS: Potassium Chloride 20 mEq 100 ML IVPB SCH ×2 (10:12→12:30)
[2017-12-16 10:54] LABS: HEMOGLOBIN 8.3 g/dL (12.0-18.0); MEAN CELL VOLUME 76.4 fl (80.0-94.0); MEAN CORPUSCULAR HEMOGLOBIN 25.3 pg (27.0-31.0); MEAN CORPUSCULAR HGB CONC 33.1 g/dL (33.0-37.0); RBC 3.3 Mil/uL (4.40-5.90); RED CELL DISTRIBUTION WIDTH 20.9 % (11.5-14.5)
--- NOTE | 2017-12-16 11:52 | CP.PCM.CON ---
History of Present Illness - History of Present Illness History of Present Illness: 32 YOM with h/o alcohol abuse, schizophrenia with previous admissions with GIB, came to ER with frequent episodes of vomiting blood for 3-4 days . C/O abdominal pain and weakness, Ge drinks daily and for last 3 days has been drinking votka at least 2 bottles daily. His Hb initially was 11.0, dropped to 8.8 six hours later but hs bee stable since and has not had any more episode of hematamesis . Also has high bun/appeals representative. Review of Systems - Review of Systems Systems not reviewed;Unavailable: Intoxicated - Constitutional Constitutional: Anorexia, Lethargy - EENT Eyes: As Per HPI - Cardiovascular Cardiovascular: As Per HPI - Respiratory Respiratory: As Per HPI - Gastrointestinal Gastrointestinal: Abdominal Pain - Genitourinary Genitourinary: As Per HPI Past Patient History - Past Medical History & Family History Past Medical History?: Yes - Past Social History Smoking Status: Unknown If Ever Smoked - CARDIAC Hx Hypertension: Yes - PULMONARY Hx Respiratory Disorders: No Hx Tuberculosis: No - NEUROLOGICAL Hx Seizures: No - HEENT Hx HEENT Problems: No - RENAL Hx Chronic Kidney Disease: No - ENDOCRINE/METABOLIC Hx Endocrine Disorders: No Hx Diabetes Mellitus Type 2: Yes - HEMATOLOGICAL/ONCOLOGICAL Hx Human Immunodeficiency Virus (HIV): No - INTEGUMENTARY Hx Dermatological Problems: No - MUSCULOSKELETAL/RHEUMATOLOGICAL Hx Falls: Yes Hx Fractures: Yes - GASTROINTESTINAL Hx Gastrointestinal Disorders: No - GENITOURINARY/GYNECOLOGICAL Hx Sexually Transmitted Disorders: No - PSYCHIATRIC Hx Anxiety: No Hx Bipolar Disorder: No Hx Depression: No Hx Schizophrenia: Yes Hx Substance Use: No - SURGICAL HISTORY Hx Surgeries: Yes - ANESTHESIA Hx Anesthesia: Yes Hx Anesthesia Reactions: No Meds Allergies/Adverse Reactions: Allergies Allergy/AdvReac Type Severity Reaction Status Date / Time No Known Allergies Allergy Verified 12/15/17 22:28 - Medications Medications: Current Medications Chlordiazepoxide (Librium) 25 mg PO Q6 [facility] Last Admin: 12/16/17 09:40 Dose: 25 mg Folic Acid (Folic Acid) 1 mg PO DAILY LUNA Lactated Ringer's (Lactated Ringer's) 1,000 mls @ 150 mls/hr IV .Q6H40M [facility] Stop: 12/16/17 13:04 Pantoprazole Sodium 40 mg/ (Sodium Chloride) 100 mls @ 20 mls/hr IVPB Q5H [facility] PRN Reason: 8 MG/HR Last Admin: 12/16/17 05:47 Dose: 20 mls/hr Octreotide Acetate 1,250 mcg/ (Sodium Chloride) 252.5 mls @ 0 mls/hr IV .Q0M LUNA; Per Protocol PRN Reason: Protocol Potassium Chloride (Potassium Chloride 20 Meq/100 Ml) 100 mls @ 50 mls/hr IVPB Q2 [facility] Stop: 12/16/17 13:59 Last Admin: 12/16/17 10:12 Dose: 50 mls/hr Lorazepam (Ativan) 1 mg IVP Q6H PRN PRN Reason: For anxiety/agit/withdrwl sym Multivitamins/Vitamin C (Multi-Delyn Liquid) 15 ml PO DAILY LUNA Ondansetron HCl (Zofran Inj) 4 mg IVP Q6H PRN PRN Reason: Nausea/Vomiting Thiamine HCl (Vitamin B1 Tab) 100 mg PO DAILY LUNA Last Admin: 12/16/17 10:11 Dose: 100 mg Physical Exam - Head Exam Head Exam: ATRAUMATIC - ENT Exam ENT Exam: Mucous Membranes Moist - Neck Exam Neck exam: Positive for: Full Rom - Respiratory Exam Respiratory Exam: NORMAL BREATHING PATTERN - Cardiovascular Exam Cardiovascular Exam: REGULAR RHYTHM - GI/Abdominal Exam GI & Abdominal Exam: Tenderness Results - Vital Signs Recent Vital Signs: Last Vital Signs Temp 99 F 12/16/17 08:00 Pulse 93 H 12/16/17 10:00 Resp 19 12/16/17 10:00 BP 170/99 H 12/16/17 10:00 Pulse Ox 100 12/16/17 10:00 - Labs Result Diagrams: 12/16/17 09:56 12/16/17 04:32 Labs: Laboratory Results - last 24 hr 12/15/17 12/15/17 12/15/17 22:45 22:45 22:45 WBC 23.3 H D RBC 4.39 L Hgb 11.0 L Hct 33.8 L MCV 77.0 L D MCH 25.0 L MCHC 32.4 L RDW 21.4 H Plt Count 184 MPV 9.7 Neut % (Auto) 88.4 H Lymph % (Auto) 6.2 L [place] % (Auto) 5.3 Eos % (Auto) 0.0 Baso % (Auto) 0.1 Neut # (Auto) 20.6 H Lymph # (Auto) 1.4 [place] # (Auto) 1.2 H Eos # (Auto) 0.0 Baso # (Auto) 0.0 Neutrophils % (Manual) 87 H Band Neutrophils % 2 Lymphocytes % (Manual) 7 L Monocytes % (Manual) 4 Platelet Estimate Normal Hypochromasia (manual) Slight Anisocytosis (manual) Slight Stomatocytes Moderate PT INR APTT pO2 VBG pH VBG pCO2 VBG HCO3 VBG Total CO2 VBG O2 Sat (Calc) VBG Base Excess VBG Potassium Glucose Lactate FiO2 Crit Value Called To Crit Value Called By Crit Value Read Back Blood Gas Notified Time Sodium 132 Potassium 2.7 L Chloride 79 L D Carbon Dioxide 21 L Anion Gap 35 H BUN 35 H Creatinine 3.8 H Est GFR ( Amer) 22 Est GFR (Non-Af Amer) 18 Random Glucose 165 H Calcium 7.9 L Total Bilirubin 0.9 Direct Bilirubin 0.4 AST 293 H D ALT 78 H D Alkaline Phosphatase 69 Ammonia 21 D Total Protein 8.2 Albumin 4.8 Globulin 3.4 Albumin/Globulin Ratio 1.4 Lipase 197 Venous Blood Potassium Urine Color Urine Clarity Urine pH Ur Specific Chadron Urine Protein Urine Glucose (UA) Urine Ketones Urine Blood Urine Nitrate Urine Bilirubin Urine Urobilinogen Ur Leukocyte Esterase Urine RBC (Auto) Urine Microscopic WBC Ur Squamous Epith Cells Urine Bacteria Stool Occult Blood Urine Opiates Screen Urine Methadone Screen Ur Barbiturates Screen Ur Phencyclidine Scrn Ur Amphetamines Screen U Benzodiazepines Scrn U Oth Cocaine Metabols U Cannabinoids Screen Alcohol, Quantitative < 10 Blood Type Antibody Screen BBK History Checked 12/15/17 12/15/17 12/15/17 22:45 22:45 22:45 WBC RBC Hgb Hct MCV MCH MCHC RDW Plt Count MPV Neut % (Auto) Lymph % (Auto) [place] % (Auto) Eos % (Auto) Baso % (Auto) Neut # (Auto) Lymph # (Auto) [place] # (Auto) Eos # (Auto) Baso # (Auto) Neutrophils % (Manual) Band Neutrophils % Lymphocytes % (Manual) Monocytes % (Manual) Platelet Estimate Hypochromasia (manual) Anisocytosis (manual) Stomatocytes PT 12.9 INR 1.2 APTT 26.1 pO2 VBG pH VBG pCO2 VBG HCO3 VBG Total CO2 VBG O2 Sat (Calc) VBG Base Excess VBG Potassium Glucose Lactate FiO2 Crit Value Called To Crit Value Called By Crit Value Read Back Blood Gas Notified Time Sodium Potassium Chloride Carbon Dioxide Anion Gap BUN Creatinine Est GFR ( Amer) Est GFR (Non-Af Amer) Random Glucose Calcium Total Bilirubin Direct Bilirubin AST ALT Alkaline Phosphatase Ammonia Total Protein Albumin Globulin Albumin/Globulin Ratio Lipase Venous Blood Potassium Urine Color Urine Clarity Urine pH Ur Specific [place] Urine Protein Urine Glucose (UA) Urine Ketones Urine Blood Urine Nitrate Urine Bilirubin Urine Urobilinogen Ur Leukocyte Esterase Urine RBC (Auto) Urine Microscopic WBC Ur Squamous Epith Cells Urine Bacteria Stool Occult Blood Positive H Urine Opiates Screen Urine Methadone Screen Ur Barbiturates Screen Ur Phencyclidine Scrn Ur Amphetamines Screen U Benzodiazepines Scrn U Oth Cocaine Metabols U Cannabinoids Screen Alcohol, Quantitative Blood Type A POSITIVE Antibody Screen Negative BBK History Checked Patient has bt 12/15/17 12/15/17 12/15/17 23:14 23:30 23:30 WBC RBC Hgb Hct MCV MCH MCHC RDW Plt Count MPV Neut % (Auto) Lymph % (Auto) [place] % (Auto) Eos % (Auto) Baso % (Auto) Neut # (Auto) Lymph # (Auto) [place] # (Auto) Eos # (Auto) Baso # (Auto) Neutrophils % (Manual) Band Neutrophils % Lymphocytes % (Manual) Monocytes % (Manual) Platelet Estimate Hypochromasia (manual) Anisocytosis (manual) Stomatocytes PT INR APTT pO2 16 L VBG pH 7.54 H VBG pCO2 27 L VBG HCO3 24.4 VBG Total CO2 23.9 VBG O2 Sat (Calc) 39.6 L VBG Base Excess 1.7 VBG Potassium 2.3 L* Glucose 179 H Lactate 13.3 H* FiO2 21.0 Crit Value Called To Dr bruce armstrong Crit Value Called By 6075 Crit Value Read Back Y Blood Gas Notified Time 2322 Sodium 133.0 Potassium Chloride 79.0 L Carbon Dioxide Anion Gap BUN Creatinine Est GFR ( Amer) Est GFR (Non-Af Amer) Random Glucose Calcium Total Bilirubin Direct Bilirubin AST ALT Alkaline Phosphatase Ammonia Total Protein Albumin Globulin Albumin/Globulin Ratio Lipase Venous Blood Potassium 2.3 L* Urine Color Emelia Urine Clarity Cloudy Urine pH 6.0 Ur Specific [place] 1.018 Urine Protein 100 Urine Glucose (UA) 50 Urine Ketones Trace Urine Blood Large Urine Nitrate Negative Urine Bilirubin Negative Urine Urobilinogen 0.2-1.0 Ur Leukocyte Esterase Neg Urine RBC (Auto) 4 H Urine Microscopic WBC 19 H Ur Squamous Epith Cells 2 Urine Bacteria Rare Stool Occult Blood Urine Opiates Screen Negative Urine Methadone Screen Negative Ur Barbiturates Screen Negative Ur Phencyclidine Scrn Negative Ur Amphetamines Screen Negative U Benzodiazepines Scrn Negative U Oth Cocaine Metabols Negative U Cannabinoids Screen Negative Alcohol, Quantitative Blood Type Antibody Screen BBK History Checked 12/16/17 12/16/17 12/16/17 04:32 04:32 09:56 WBC 16.3 H 16.0 H RBC 3.48 L 3.30 L Hgb 8.8 L D 8.3 L Hct 27.2 L 25.2 L MCV 78.1 L 76.4 L MCH 25.2 L 25.3 L MCHC 32.3 L 33.1 RDW 21.1 H 20.9 H Plt Count 114 L D 120 L MPV Neut % (Auto) Lymph % (Auto) [place] % (Auto) Eos % (Auto) Baso % (Auto) Neut # (Auto) Lymph # (Auto) [place] # (Auto) Eos # (Auto) Baso # (Auto) Neutrophils % (Manual) Band Neutrophils % Lymphocytes % (Manual) Monocytes % (Manual) Platelet Estimate Hypochromasia (manual) Anisocytosis (manual) Stomatocytes PT INR APTT pO2 VBG pH VBG pCO2 VBG HCO3 VBG Total CO2 VBG O2 Sat (Calc) VBG Base Excess VBG Potassium Glucose Lactate FiO2 Crit Value Called To Crit Value Called By Crit Value Read Back Blood Gas Notified Time Sodium 135 Potassium 3.5 L Chloride 92 L Carbon Dioxide 24 Anion Gap 23 H BUN 31 H Creatinine 2.3 H Est GFR ( Amer) 40 Est GFR (Non-Af Amer) 33 Random Glucose 142 H Calcium 6.2 L Total Bilirubin Direct Bilirubin AST ALT Alkaline Phosphatase Ammonia Total Protein Albumin Globulin Albumin/Globulin Ratio Lipase Venous Blood Potassium Urine Color Urine Clarity Urine pH Ur Specific [place] Urine Protein Urine Glucose (UA) Urine Ketones Urine Blood Urine Nitrate Urine Bilirubin Urine Urobilinogen Ur Leukocyte Esterase Urine RBC (Auto) Urine Microscopic WBC Ur Squamous Epith Cells Urine Bacteria Stool Occult Blood Urine Opiates Screen Urine Methadone Screen Ur Barbiturates Screen Ur Phencyclidine Scrn Ur Amphetamines Screen U Benzodiazepines Scrn U Oth Cocaine Metabols U Cannabinoids Screen Alcohol, Quantitative Blood Type Antibody Screen BBK History Checked Assessment & Plan - Assessment and Plan (Free Text) Assessment: 1) UGIB -ICU -IVF, was in RL, now NS at 75 cc/h -Type and Screen, serial CBCs -Protonix gtt -Octreotide gtt started 50 mcg/h -Ceftriaxone will be started for PPx, as well as given the elevated WC -GI consult (Fady) 2) ARF -- pre-alida; due to vomiting/blood loss Bun also also due to UGIB -IVF -check UA -Repeat BMP in AM 3) EtOH abuse -CIWA with IV ativan PO librium -Vitamins/b12/folic acid to start in AM after initial resuscitation 4) SCDs only for DVT PPx Status: Acute 5-Hypocalcemia IV laura gluconate (2) Renal insufficiency Status: Acute (3) Alcohol abuse Status: Chronic (4) Hypokalemia Status: Acute (5) Leukocytosis Status: Acute (6) DVT prophylaxis Status: Acute
--- NOTE | 2017-12-16 12:24 | RAD ---
Date of service: 12/15/2017 PROCEDURE: CHEST RADIOGRAPH, 1 VIEW HISTORY: vomiting blood COMPARISON: 07/15/2017 FINDINGS: LUNGS: Clear. PLEURA: No pneumothorax or pleural fluid seen. CARDIOVASCULAR: Normal. OSSEOUS STRUCTURES: No significant abnormalities. VISUALIZED UPPER ABDOMEN: Normal. OTHER FINDINGS: None. IMPRESSION: No active disease.
[2017-12-16] MEDS: Sodium Chloride 0.9% 1,000 ML IV SCH (16:31)
[2017-12-16 19:55] LABS: HEMOGLOBIN 7.7 g/dL (12.0-18.0); MEAN CELL VOLUME 78.9 fl (80.0-94.0); MEAN CORPUSCULAR HEMOGLOBIN 25.4 pg (27.0-31.0); MEAN CORPUSCULAR HGB CONC 32.3 g/dL (33.0-37.0); RBC 3.05 Mil/uL (4.40-5.90); RED CELL DISTRIBUTION WIDTH 21.2 % (11.5-14.5); WHITE BLOOD COUNT 11.3 K/uL (4.8-10.8)
[2017-12-17] MEDS: Pantoprazole 40 MG in Sodium Chloride 0.9% 100 ML IVPB SCH ×6 (01:35→22:41)
[2017-12-17] MEDS: Sodium Chloride 0.9% 1,000 ML IV SCH (05:54)
[2017-12-17 06:11] LABS: ALB/GLOB RATIO 1.1 (1.0-2.1); ALBUMIN 3.1 g/dL (3.5-5.0); ALT/SGPT 194 U/L (21-72); AST/SGOT 595 U/L (17-59); BLOOD UREA NITROGEN 17 mg/dl (9-20); CALCIUM 7.6 mg/dL (8.4-10.2); GFR AFRICAN-AMERICAN > 60; GFR NON-AFRICAN AMERICAN > 60
[2017-12-17] MEDS: Multi Vitamins 15 mL UD Oral Solution PO SCH (08:27)
[2017-12-17] MEDS: Potassium Chloride 20 mEq 100 ML IVPB SCH ×2 (10:45→11:24)
[2017-12-17] MEDS ORDERED: Potassium Chloride 20 mEq ER Tab PO ONE (12:15)
--- NOTE | 2017-12-17 14:18 | CP.PCM.PN ---
Subjective - Date & Time of Evaluation Date of Evaluation: 12/17/17 Time of Evaluation: 11:30 - Subjective Subjective: No fever mild abd discomfort denies CP no SOB mild tremors no further melena Objective - Vital Signs/Intake and Output Vital Signs (last 24 hours): Temp Pulse Resp BP Pulse Ox 98.6 F 63 13 128/75 97 12/17/17 12:00 12/17/17 14:00 12/17/17 14:00 12/17/17 14:00 12/17/17 14:00 Intake and Output: 12/17/17 12/17/17 06:59 18:59 Intake Total 1250 790 Output Total 1300 Balance -50 790 - Medications Medications: Current Medications Acetaminophen (Tylenol 650 Mg Supp) 650 mg ND Q4 PRN PRN Reason: Fever >100.4 F Chlordiazepoxide (Librium) 25 mg PO Q6 [facility] Last Admin: 12/17/17 10:37 Dose: 25 mg Folic Acid (Folic Acid) 1 mg PO DAILY [facility] Last Admin: 12/17/17 08:27 Dose: 1 mg Hydralazine HCl (Apresoline) 10 mg IV Q6 PRN PRN Reason: SBP> 165 or DBP>100 Pantoprazole Sodium 40 mg/ (Sodium Chloride) 100 mls @ 20 mls/hr IVPB Q5H [facility] PRN Reason: 8 MG/HR Last Admin: 12/17/17 12:37 Dose: 20 mls/hr Octreotide Acetate 1,250 mcg/ (Sodium Chloride) 252.5 mls @ 0 mls/hr IV .Q0M [facility]; Per Protocol PRN Reason: Protocol Last Admin: 12/17/17 11:28 Dose: 10 mls/hr Sodium Chloride (Sodium Chloride 0.9%) 1,000 mls @ 80 mls/hr IV .[id number] [facility] Stop: 12/17/17 15:41 Last Admin: 12/17/17 05:54 Dose: 80 mls/hr Labetalol HCl (Trandate) 200 mg PO Q8 [facility] Last Admin: 12/17/17 08:26 Dose: 200 mg Lorazepam (Ativan) 1 mg IVP Q6H PRN PRN Reason: For anxiety/agit/withdrwl sym Last Admin: 12/17/17 00:47 Dose: 1 mg Multivitamins/Vitamin C (Multi-Delyn Liquid) 15 ml PO DAILY [facility] Last Admin: 12/17/17 08:27 Dose: 15 ml Ondansetron HCl (Zofran Inj) 4 mg IVP Q6H PRN PRN Reason: Nausea/Vomiting Last Admin: 12/16/17 13:52 Dose: 4 mg Ondansetron HCl (Zofran Inj) 4 mg IVP Q4 PRN PRN Reason: Nausea/Vomiting Last Admin: 12/17/17 08:42 Dose: 4 mg Thiamine HCl (Vitamin B1 Tab) 100 mg PO DAILY [facility] Last Admin: 12/17/17 08:26 Dose: 100 mg - Labs Labs: 12/16/17 19:50 12/17/17 05:26 PT 12.9 Seconds (9.8-13.1) 12/15/17 22:45 INR 1.2 (0.9-1.2) 12/15/17 22:45 APTT 26.1 Seconds (25.6-37.1) 12/15/17 22:45 - Constitutional Appears: No Acute Distress, Chronically Ill - Head Exam Head Exam: NORMAL INSPECTION, NORMOCEPHALIC - Eye Exam Eye Exam: EOMI, Normal appearance, PERRL Pupil Exam: NORMAL ACCOMODATION - ENT Exam ENT Exam: Mucous Membranes Dry, Normal External Ear Exam - Neck Exam Neck Exam: Full ROM. absent: Meningismus - Respiratory Exam Respiratory Exam: NORMAL BREATHING PATTERN. absent: Respiratory Distress - Cardiovascular Exam Cardiovascular Exam: Clicks, +S1, +S2 - GI/Abdominal Exam GI & Abdominal Exam: Soft, Normal Bowel Sounds. absent: Tenderness - Extremities Exam Extremities Exam: Full ROM, Normal Capillary Refill. absent: Calf Tenderness - Back Exam Back Exam: Full ROM. absent: CVA tenderness (L), CVA tenderness (R) - Neurological Exam Neurological Exam: Alert, Awake, CN II-XII Intact, Oriented x3 - Psychiatric Exam Psychiatric exam: Normal Affect, Normal Mood - Skin Skin Exam: Dry, Normal Color, Warm Assessment and Plan - Assessment and Plan (Free Text) Assessment: 32 y/o male with extensive history of EtOH abuse and prior GIB presenting again with similar scenario -- UGIB in setting of med noncompliance and EtOH abuse. (1) UGIB (upper gastrointestinal bleed) -ICU monitoring -NPO, IVF -Type and Screen, serial CBCs -Protonix gtt -Octreotide gtt also started -GI consult (Fady) - Pt received IV Ceftriaxone for prophylaxis for GI bleed as WBC count elevated 2) Acute renal Failure -- likely 2/2 vol dep from vomiting/blood loss -IVF - improving - Blood transfusion 3) Hypokalemia due to decrease PO intake -Replete with KCl -Repeat BMP 4) EtOH abuse/Withdrawal -CIWA with IV ativan -Vitamins/b12/folic acid - cont Librium 5. Thrombocytopenia likely due to ETOH SCDs only for DVT PPx due to low Platelet Status: Acute
[2017-12-17 16:23] LABS: HEMOGLOBIN 8.4 g/dL (12.0-18.0); MEAN CELL VOLUME 81.3 fl (80.0-94.0); MEAN CORPUSCULAR HEMOGLOBIN 26.4 pg (27.0-31.0); MEAN CORPUSCULAR HGB CONC 32.5 g/dL (33.0-37.0); RBC 3.17 Mil/uL (4.40-5.90); RED CELL DISTRIBUTION WIDTH 20.6 % (11.5-14.5); WHITE BLOOD COUNT 7.9 K/uL (4.8-10.8)
[2017-12-17] MEDS ORDERED: Sodium Chloride 0.9% 1,000 ML IV SCH (19:00)
--- NOTE | 2017-12-17 19:21 | CP.PCM.CON ---
History of Present Illness - History of Present Illness History of Present Illness: 32 yo male with h/o schizophrenia and alcohol abuse admitted with GI bleed after drinking 2 bottles of vodka per day. Was having bleeding per rectum as well as hematemesis prior to admission. No further bleeding since since he has been admitted. Has been admitted in June and August of this year with similar presentation. Previous CT of abdomen does not show cirrhosis. Review of Systems - Constitutional Constitutional: absent: Chills - EENT Eyes: absent: Blurred Vision Ears: absent: Decreased Hearing Nose/Mouth/Throat: absent: Nasal Congestion - Cardiovascular Cardiovascular: absent: Chest Pain - Respiratory Respiratory: absent: Dyspnea - Gastrointestinal Gastrointestinal: absent: Abdominal Pain - Genitourinary Genitourinary: absent: Change in Urinary Stream Past Patient History - Past Medical History & Family History Past Medical History?: Yes - Past Social History Smoking Status: Unknown If Ever Smoked - CARDIAC Hx Hypertension: Yes - PULMONARY Hx Respiratory Disorders: No Hx Tuberculosis: No - NEUROLOGICAL Hx Seizures: No - HEENT Hx HEENT Problems: No - RENAL Hx Chronic Kidney Disease: No - ENDOCRINE/METABOLIC Hx Endocrine Disorders: No Hx Diabetes Mellitus Type 2: Yes - HEMATOLOGICAL/ONCOLOGICAL Hx Human Immunodeficiency Virus (HIV): No - INTEGUMENTARY Hx Dermatological Problems: No - MUSCULOSKELETAL/RHEUMATOLOGICAL Hx Falls: Yes Hx Fractures: Yes - GASTROINTESTINAL Hx Gastrointestinal Disorders: No - GENITOURINARY/GYNECOLOGICAL Hx Sexually Transmitted Disorders: No - PSYCHIATRIC Hx Anxiety: No Hx Bipolar Disorder: No Hx Depression: No Hx Schizophrenia: Yes Hx Substance Use: No - SURGICAL HISTORY Hx Surgeries: Yes - ANESTHESIA Hx Anesthesia: Yes Hx Anesthesia Reactions: No Meds Allergies/Adverse Reactions: Allergies Allergy/AdvReac Type Severity Reaction Status Date / Time No Known Allergies Allergy Verified 12/15/17 22:28 - Medications Medications: Current Medications Acetaminophen (Tylenol 650 Mg Supp) 650 mg SD Q4 PRN PRN Reason: Fever >100.4 F Chlordiazepoxide (Librium) 25 mg PO Q6 [facility] Last Admin: 12/17/17 16:35 Dose: 25 mg Folic Acid (Folic Acid) 1 mg PO DAILY [facility] Last Admin: 12/17/17 08:27 Dose: 1 mg Hydralazine HCl (Apresoline) 10 mg IV Q6 PRN PRN Reason: SBP> 165 or DBP>100 Pantoprazole Sodium 40 mg/ (Sodium Chloride) 100 mls @ 20 mls/hr IVPB Q5H [facility] PRN Reason: 8 MG/HR Last Admin: 12/17/17 16:37 Dose: 20 mls/hr Sodium Chloride (Sodium Chloride 0.9%) 1,000 mls @ 40 mls/hr IV .Q24H [facility] Stop: 12/18/17 18:47 Labetalol HCl (Trandate) 200 mg PO Q8 [facility] Last Admin: 12/17/17 16:35 Dose: 200 mg Lorazepam (Ativan) 1 mg IVP Q6H PRN PRN Reason: For anxiety/agit/withdrwl sym Last Admin: 12/17/17 00:47 Dose: 1 mg Multivitamins/Vitamin C (Multi-Delyn Liquid) 15 ml PO DAILY [facility] Last Admin: 12/17/17 08:27 Dose: 15 ml Ondansetron HCl (Zofran Inj) 4 mg IVP Q6H PRN PRN Reason: Nausea/Vomiting Last Admin: 12/16/17 13:52 Dose: 4 mg Ondansetron HCl (Zofran Inj) 4 mg IVP Q4 PRN PRN Reason: Nausea/Vomiting Last Admin: 12/17/17 08:42 Dose: 4 mg Thiamine HCl (Vitamin B1 Tab) 100 mg PO DAILY [facility] Last Admin: 12/17/17 08:26 Dose: 100 mg Physical Exam - Constitutional Appears: Well - Head Exam Head Exam: ATRAUMATIC - Eye Exam Eye Exam: Normal appearance - ENT Exam ENT Exam: Mucous Membranes Moist - Neck Exam Neck exam: Positive for: Normal Inspection - Respiratory Exam Respiratory Exam: Clear to Auscultation Bilateral - Cardiovascular Exam Cardiovascular Exam: REGULAR RHYTHM, +S1, +S2 - GI/Abdominal Exam GI & Abdominal Exam: Normal Bowel Sounds. absent: Tenderness Results - Vital Signs Recent Vital Signs: Last Vital Signs Temp 98.5 F 12/17/17 16:00 Pulse 62 12/17/17 16:00 Resp 15 12/17/17 16:00 BP 132/89 12/17/17 16:00 Pulse Ox 98 12/17/17 16:00 - Labs Result Diagrams: 12/17/17 16:10 12/17/17 05:26 Labs: Laboratory Results - last 24 hr 12/15/17 12/16/17 12/16/17 22:45 16:12 19:50 WBC 11.3 H RBC 3.05 L Hgb 7.7 L Hct 24.0 L MCV 78.9 L D MCH 25.4 L MCHC 32.3 L RDW 21.2 H Plt Count 98 L D Sodium Potassium Chloride Carbon Dioxide Anion Gap BUN Creatinine Est GFR ( Amer) Est GFR (Non-Af Amer) POC Glucose (mg/dL) 163 H Random Glucose Calcium Total Bilirubin AST ALT Alkaline Phosphatase Total Protein Albumin Globulin Albumin/Globulin Ratio Blood Type A POSITIVE Antibody Screen Negative Crossmatch See Detail BBK History Checked Patient has bt 12/16/17 12/17/17 12/17/17 21:46 05:26 16:10 WBC 7.9 RBC 3.17 L Hgb 8.4 L Hct 25.7 L MCV 81.3 D MCH 26.4 L MCHC 32.5 L RDW 20.6 H Plt Count 93 L Sodium 139 Potassium 3.3 L Chloride 102 Carbon Dioxide 29 Anion Gap 11 BUN 17 Creatinine 1.2 Est GFR ( Amer) > 60 Est GFR (Non-Af Amer) > 60 POC Glucose (mg/dL) 156 H Random Glucose 125 H Calcium 7.6 L Total Bilirubin 0.5 AST 595 H D ALT 194 H D Alkaline Phosphatase 46 Total Protein 5.8 L Albumin 3.1 L D Globulin 2.8 Albumin/Globulin Ratio 1.1 Blood Type Antibody Screen Crossmatch BBK History Checked Assessment & Plan (1) UGIB (upper gastrointestinal bleed) Assessment and Plan: Currently not acively bleeding clinically. Differential includes Shirley Bello, gastritis, and ulcer. Continue IV PPI drip. May stop Octreotide Status: Acute (2) Abnormal LFTs (liver function tests) Assessment and Plan: LFTs have risen since admission likely due to alcoholic hepatitis. Continue to monitor. Librium to prevent DTs. Status: Chronic
[2017-12-18] MEDS: Pantoprazole 40 MG in Sodium Chloride 0.9% 100 ML IVPB SCH ×7 (03:20→23:58)
--- NOTE | 2017-12-18 03:37 | PN ---
DATE: 12/17/2017 CRITICAL CARE PROGRESS NOTE LOCATION: The patient in ICU, bed 435. TIME SPENT: 35 minutes. SUBJECTIVE: Seen and evaluated at the bedside. Past medical, surgical, and social history are noted. A 32-year-old male with a history of schizophrenia, EtOH abuse, and prior GI bleed, comes in again with EtOH abuse and GI bleed, reportedly has been having intermittent hematemesis for the last 5 days. The patient is status post EGD and a colonoscopy recently. Past history is also significant for multiple fractures, involving right shoulder. Overnight uneventful. No further nausea or vomiting. No melena reported. Remains alert, awake. Follows commands appropriate. PHYSICAL EXAMINATION: VITAL SIGNS: Temperature 98.5, heart rate 62, blood pressure 132/89, mean arterial pressure 103, respiratory rate 15, saturating 98% on room air. Intake 2110, output 1000, positive balance 1110. HEAD, EYES, EARS, NOSE, AND THROAT: Pupils are reactive. Conjunctivae pale. Sclerae white. NECK: Supple. Trachea is central. CHEST: Bilateral breath sounds. Clear to auscultation. HEART: Rhythm regular. S1, S2 normal. ABDOMEN: Bowel sounds present. Soft. NEUROLOGIC: Nonfocal. GASTROINTESTINAL: Soft and nontender. CURRENT MEDICATIONS: Include Tylenol 650 every 4 p.r.n., Librium 25 mg every 6, folic acid 1 mg daily, hydralazine 10 mEq IV every 6 p.r.n. for systolic pressure more than 165, labetalol 200 mg p.o. every 8, Ativan 1 mg IV every 6 p.r.n., multivitamin 15 mL p.o. daily, Zofran formula IV every 6 p.r.n., Protonix 40 mg, at 8 mg per hour, and thiamine 100 mg p.o. daily. LABORATORY DATA: WBC 7.9, hemoglobin 8.4, hematocrit 25.7, platelet count 93. PT 12.9, INR 1.2, PTT is 26.1. SMA-7: Sodium 139, potassium 3.3, chloride 102, CO2 of 29, blood urea nitrogen 17, creatinine 1.2, random glucose 125, calcium 7.6, total bilirubin 0.5, AST 595, ALT 194, alkaline phosphatase 46, total protein 5.8, albumin 3.8, lipase 197. Microbiology: MRSA nasal smear negative. Urine culture, no growth. Blood culture, no growth reported. Chest x-ray, no active disease. ASSESSMENT AND PLAN: A 32-year-old male with extensive history of ethanol abuse and prior gastrointestinal bleeding, presenting with upper gastrointestinal bleeding, hemodynamically stable, status post red blood cells. Discussed with Gastrointestinal. Discontinue Sandostatin. Continue Protonix. Awaiting for endoscopy on Sunday. Renal insufficiency, stable. Alcohol abuse, monitor for withdrawal. Hypokalemia, potassium supplement. Leukocytosis, resolved. Continue Librium, folic acid, Ativan as needed, multivitamin, and thiamine. Evaristo Winter MD
[2017-12-18 05:06] LABS: HEMOGLOBIN 8.1 g/dL (12.0-18.0); MEAN CELL VOLUME 81.8 fl (80.0-94.0); MEAN CORPUSCULAR HEMOGLOBIN 26.6 pg (27.0-31.0); MEAN CORPUSCULAR HGB CONC 32.5 g/dL (33.0-37.0); RBC 3.04 Mil/uL (4.40-5.90); RED CELL DISTRIBUTION WIDTH 20.9 % (11.5-14.5); WHITE BLOOD COUNT 8.3 K/uL (4.8-10.8)
[2017-12-18 05:24] LABS: ALB/GLOB RATIO 1.1 (1.0-2.1); ALBUMIN 3.1 g/dL (3.5-5.0); ALT/SGPT 172 U/L (21-72); AST/SGOT 311 U/L (17-59); BLOOD UREA NITROGEN 8 mg/dl (9-20); CALCIUM 7.9 mg/dL (8.4-10.2); GFR AFRICAN-AMERICAN > 60; GFR NON-AFRICAN AMERICAN > 60
[2017-12-18] MEDS ORDERED: Potassium Chloride 20 mEq/15 ml LIQ UD PO ONE (09:30)
[2017-12-18] MEDS: Multi Vitamins 15 mL UD Oral Solution PO SCH (09:46)
--- NOTE | 2017-12-18 12:21 | CP.PCM.PN ---
Subjective - Date & Time of Evaluation Date of Evaluation: 12/18/17 Time of Evaluation: 09:00 - Subjective Subjective: Pt had small amount of dark BM last night no BM this am no further hematemesis no CP no SOB mild abd discomfort no N/V Objective - Vital Signs/Intake and Output Vital Signs (last 24 hours): Temp Pulse Resp BP Pulse Ox 98.8 F 68 18 124/86 99 12/18/17 08:00 12/18/17 10:00 12/18/17 10:00 12/18/17 10:00 12/18/17 10:00 Intake and Output: 12/18/17 12/18/17 06:59 18:59 Intake Total 1440 Output Total 900 Balance 540 - Medications Medications: Current Medications Acetaminophen (Tylenol 650 Mg Supp) 650 mg DC Q4 PRN PRN Reason: Fever >100.4 F Chlordiazepoxide (Librium) 25 mg PO Q6 [facility] Last Admin: 12/18/17 09:49 Dose: 25 mg Folic Acid (Folic Acid) 1 mg PO DAILY [facility] Last Admin: 12/18/17 09:46 Dose: 1 mg Hydralazine HCl (Apresoline) 10 mg IV Q6 PRN PRN Reason: SBP> 165 or DBP>100 Pantoprazole Sodium 40 mg/ (Sodium Chloride) 100 mls @ 20 mls/hr IVPB Q5H [facility] PRN Reason: 8 MG/HR Last Admin: 12/18/17 09:41 Dose: 20 mls/hr Sodium Chloride (Sodium Chloride 0.9%) 1,000 mls @ 40 mls/hr IV .Q24H [facility] Stop: 12/18/17 18:47 Last Admin: 12/17/17 22:43 Dose: 40 mls/hr Labetalol HCl (Trandate) 100 mg PO BID [facility] Lorazepam (Ativan) 1 mg IVP Q6H PRN PRN Reason: For anxiety/agit/withdrwl sym Last Admin: 12/18/17 03:24 Dose: 1 mg Multivitamins/Vitamin C (Multi-Delyn Liquid) 15 ml PO DAILY [facility] Last Admin: 12/18/17 09:46 Dose: 15 ml Ondansetron HCl (Zofran Inj) 4 mg IVP Q6H PRN PRN Reason: Nausea/Vomiting Last Admin: 12/16/17 13:52 Dose: 4 mg Ondansetron HCl (Zofran Inj) 4 mg IVP Q4 PRN PRN Reason: Nausea/Vomiting Last Admin: 12/17/17 08:42 Dose: 4 mg Thiamine HCl (Vitamin B1 Tab) 100 mg PO DAILY [facility] Last Admin: 12/18/17 09:45 Dose: 100 mg - Labs Labs: 12/18/17 04:30 12/18/17 04:30 PT 12.9 Seconds (9.8-13.1) 12/15/17 22:45 INR 1.2 (0.9-1.2) 12/15/17 22:45 APTT 26.1 Seconds (25.6-37.1) 12/15/17 22:45 - Constitutional Appears: No Acute Distress, Chronically Ill - Head Exam Head Exam: NORMAL INSPECTION, NORMOCEPHALIC - Eye Exam Eye Exam: EOMI, Normal appearance, PERRL Pupil Exam: NORMAL ACCOMODATION - ENT Exam ENT Exam: Mucous Membranes Dry, Normal External Ear Exam - Neck Exam Neck Exam: Full ROM. absent: Meningismus - Respiratory Exam Respiratory Exam: NORMAL BREATHING PATTERN. absent: Respiratory Distress - Cardiovascular Exam Cardiovascular Exam: Clicks, +S1, +S2 - GI/Abdominal Exam GI & Abdominal Exam: Soft, Normal Bowel Sounds. , mild epigastric Tenderness - Extremities Exam Extremities Exam: Full ROM, Normal Capillary Refill. absent: Calf Tenderness - Back Exam Back Exam: Full ROM. absent: CVA tenderness (L), CVA tenderness (R) - Neurological Exam Neurological Exam: Alert, Awake, CN II-XII Intact, Oriented x3 - Psychiatric Exam Psychiatric exam: Normal Affect, Normal Mood - Skin Skin Exam: Dry, Normal Color, Warm Assessment and Plan - Assessment and Plan (Free Text) Assessment: 32 y/o male with extensive history of EtOH abuse and prior GIB presenting again with similar scenario -- UGIB in setting of med noncompliance and EtOH abuse. (1) UGIB (upper gastrointestinal bleed) prob sec to Gastritis, Shirley Bello Tear vs Gastric Ulcer -ICU monitoring -Full liquid diet - serial CBC -cont Protonix gtt - d/c Octreotide gtt as rec by GI -GI consulted (Fady) - Pt received IV Ceftriaxone for prophylaxis for GI bleed as WBC count elevated , WBC now normal 2) Acute renal Failure -- likely 2/2 vol dep from vomiting/blood loss -IVF - improved 3) Hypokalemia due to decrease PO intake -Repleted with KCl 4) EtOH abuse/Withdrawal -CIWA with IV ativan -Vitamins/b12/folic acid - cont Librium , decrease to 25 mg q8 5. Thrombocytopenia likely due to ETOH 6. Transaminitis prob sec to Alcohol Hepatitis SCDs only for DVT PPx due to low Platelet Status: Acute
[2017-12-18 17:45] LABS: HEMOGLOBIN 8.3 g/dL (12.0-18.0); MEAN CELL VOLUME 82.1 fl (80.0-94.0); MEAN CORPUSCULAR HEMOGLOBIN 26.5 pg (27.0-31.0); MEAN CORPUSCULAR HGB CONC 32.3 g/dL (33.0-37.0); RBC 3.13 Mil/uL (4.40-5.90); RED CELL DISTRIBUTION WIDTH 21.5 % (11.5-14.5); WHITE BLOOD COUNT 8.2 K/uL (4.8-10.8)
--- NOTE | 2017-12-18 22:41 | PN ---
DATE: 12/18/2017 CRITICAL CARE PROGRESS NOTE LOCATION: The patient in room 435. TIME SPENT: 25 minutes. The patient is seen and evaluated at the bedside. Past medical, surgical and social history reviewed. SUBJECTIVE: A 32-year-old male with a history of schizophrenia, EtOH abuse and prior GI bleed. Comes in again with EtOH abuse and GI bleed. Reportedly has been having intermittent hematemesis and hematochezia prior to admission. The patient is status post EGD and colonoscopy recently. Overnight status post transfusion 1 unit of packed red blood cells, uneventful. Remained normotensive, afebrile. This morning, alert, awake, follows commands appropriate. Denies nausea, vomiting. Feels some hungry. Tolerating clear liquids. PHYSICAL EXAMINATION: VITAL SIGNS: Temperature 98.8, heart rate 68, blood pressure 124/86, mean arterial pressure 98, respiratory rate 18, saturation 99% on room air. Intake 3550, output 1900, positive balance 1650. Weight 160 pounds. HEAD, EYES, EARS, NOSE AND THROAT: Pupils are reactive. Conjunctivae are pink. Sclerae are white. NECK: Supple. Trachea is central. CHEST: Bilateral breath sounds. Clear to auscultation. HEART: Rhythm regular. S1, S2 normal. No audible murmur. ABDOMEN: Bowel sounds present. Soft. Liver and spleen not palpable. Bladder not distended. EXTREMITIES: No clubbing, cyanosis or edema. NEURO EXAMINATION: Nonfocal. LABORATORY DATA: WBC 8.3, hemoglobin 8.1, hematocrit 24.9, platelet count 96. PT 12.9, INR 1.2, PTT 26.1. SMA-7: Sodium 139, potassium 3.5, chloride 104, CO2 of 27, blood urea nitrogen 8, creatinine 0.9, random glucose 93, calcium 7.9. Total bilirubin 0.3, AST 311, ALT 172, alkaline phosphatase 46, total protein 5.9, albumin 3.1. Urinalysis negative. Stool occult blood positive. Microbiology: Nasal smear MRSA negative. Blood culture, no growth. Urine culture, no growth. CURRENT MEDICATIONS: Folic acid 1 mg daily, Librium 25 mg every 6 hours, hydralazine 10 mg IV every 6 hours p.r.n. labetalol 100 mg p.o. b.i.d., Ativan 1 mg IV every 6 hours, Zofran 4 mg IV every 6 hours p.r.n., Protonix 40 mg IV, 8 mg per hour, thiamine 100 mg p.o. daily. IMPRESSION: A 32-year-old male with extensive history of ethanol abuse and prior gastrointestinal bleeding, presenting with upper gastrointestinal bleeding, status post transfusion of 1 unit of packed red blood cells. Repeat hemoglobin is 8.1, stable. No further hematemesis. Discussed with Gastroenterology consult. Sandostatin discontinued. Continue proton pump inhibitor. Monitor for alcohol withdrawal. Continue thiamine, folic acid and multivitamin. Leukocytosis resolved. Evaristo Winter MD
[2017-12-19] MEDS: Pantoprazole 40 MG in Sodium Chloride 0.9% 100 ML IVPB SCH ×2 (03:45→05:17)
[2017-12-19 06:48] LABS: HEMOGLOBIN 9.2 g/dL (12.0-18.0); MEAN CELL VOLUME 82.8 fl (80.0-94.0); MEAN CORPUSCULAR HEMOGLOBIN 26.7 pg (27.0-31.0); MEAN CORPUSCULAR HGB CONC 32.2 g/dL (33.0-37.0); RBC 3.44 Mil/uL (4.40-5.90); RED CELL DISTRIBUTION WIDTH 21.3 % (11.5-14.5); WHITE BLOOD COUNT 7.9 K/uL (4.8-10.8)
[2017-12-19 07:15] LABS: ALB/GLOB RATIO 1.1 (1.0-2.1); ALBUMIN 3.3 g/dL (3.5-5.0); ALT/SGPT 140 U/L (21-72); AST/SGOT 163 U/L (17-59); BLOOD UREA NITROGEN 4 mg/dl (9-20); CALCIUM 8.2 mg/dL (8.4-10.2); GFR AFRICAN-AMERICAN > 60; GFR NON-AFRICAN AMERICAN > 60
[2017-12-19 08:09] VITALS: BP 132/86; PULSE 66; RESP 20; TEMP 98.6; O2SAT 96
[2017-12-19] MEDS: Multi Vitamins 15 mL UD Oral Solution PO SCH (09:49)
--- NOTE | 2017-12-19 14:45 | CP.PCM.DIS ---
Provider - Provider Date of Admission: 12/15/17 23:38 Attending physician: Stephanie Camarena MD Consults: GI : Dr Shrestha Time Spent in preparation of Discharge (in minutes): 40 Diagnosis - Discharge Diagnosis (1) Acute blood loss anemia Status: Acute (2) Gastrointestinal hemorrhage Status: Acute (3) Renal insufficiency Status: Acute (4) Abnormal LFTs (liver function tests) Status: Acute (5) Alcohol abuse Status: Chronic Hospital Course - Lab Results Lab Results: Micro Results 12/15/17 22:30 Blood-Venous Blood Culture - Preliminary NO GROWTH AFTER 3 DAYS 12/15/17 22:45 Blood-Venous Blood Culture - Preliminary NO GROWTH AFTER 3 DAYS 12/16/17 08:22 Naris MRSA Culture (Admit) - Final MRSA NOT DETECTED 12/15/17 23:30 Urine,Clean Catch Urine Culture - Final No Growth (<1,000 CFU/ML) Most Recent Lab Values WBC 7.9 K/uL (4.8-10.8) 12/19/17 06:10 RBC 3.44 Mil/uL (4.40-5.90) L 12/19/17 06:10 Hgb 9.2 g/dL (12.0-18.0) L 12/19/17 06:10 Hct 28.4 % (35.0-51.0) L 12/19/17 06:10 MCV 82.8 fl (80.0-94.0) 12/19/17 06:10 MCH 26.7 pg (27.0-31.0) L 12/19/17 06:10 MCHC 32.2 g/dL (33.0-37.0) L 12/19/17 06:10 RDW 21.3 % (11.5-14.5) H 12/19/17 06:10 Plt Count 132 K/uL (130-400) 12/19/17 06:10 MPV 9.7 fl (7.2-11.7) 12/15/17 22:45 Neut % (Auto) 88.4 % (50.0-75.0) H 12/15/17 22:45 Lymph % (Auto) 6.2 % (20.0-40.0) L 12/15/17 22:45 [place] % (Auto) 5.3 % (0.0-10.0) 12/15/17 22:45 Eos % (Auto) 0.0 % (0.0-4.0) 12/15/17 22:45 Baso % (Auto) 0.1 % (0.0-2.0) 12/15/17 22:45 Neut # (Auto) 20.6 K/uL (1.8-7.0) H 12/15/17 22:45 Lymph # (Auto) 1.4 K/uL (1.0-4.3) 12/15/17 22:45 [place] # (Auto) 1.2 K/uL (0.0-0.8) H 12/15/17 22:45 Eos # (Auto) 0.0 K/uL (0.0-0.7) 12/15/17 22:45 Baso # (Auto) 0.0 K/uL (0.0-0.2) 12/15/17 22:45 Neutrophils % (Manual) 87 % (42-75) H 12/15/17 22:45 Band Neutrophils % 2 % (0-2) 12/15/17 22:45 Lymphocytes % (Manual) 7 % (20-50) L 12/15/17 22:45 Monocytes % (Manual) 4 % (0-10) 12/15/17 22:45 Platelet Estimate Normal (NORMAL) 12/15/17 22:45 Hypochromasia (manual) Slight 12/15/17 22:45 Anisocytosis (manual) Slight 12/15/17 22:45 Stomatocytes Moderate 12/15/17 22:45 PT 12.9 Seconds (9.8-13.1) 12/15/17 22:45 INR 1.2 (0.9-1.2) 12/15/17 22:45 APTT 26.1 Seconds (25.6-37.1) 12/15/17 22:45 pO2 16 mm/Hg (30-55) L 12/15/17 23:14 VBG pH 7.54 (7.32-7.43) H 12/15/17 23:14 VBG pCO2 27 mmHg (40-60) L 12/15/17 23:14 VBG HCO3 24.4 mmol/L 12/15/17 23:14 VBG Total CO2 23.9 mmol/L (22-28) 12/15/17 23:14 VBG O2 Sat (Calc) 39.6 % (40-65) L 12/15/17 23:14 VBG Base Excess 1.7 mmol/L (0.0-2.0) 12/15/17 23:14 VBG Potassium 2.3 mmol/L (3.6-5.2) L* 12/15/17 23:14 Sodium 133.0 mmol/L (132-148) 12/15/17 23:14 Chloride 79.0 mmol/L (98-107) L 12/15/17 23:14 Glucose 179 mg/dL (75-110) H 12/15/17 23:14 Lactate 13.3 mmol/L (0.7-2.1) H* 12/15/17 23:14 FiO2 21.0 % 12/15/17 23:14 Crit Value Called To Dr bruce armstrong 12/15/17 23:14 Crit Value Called By [id number] 12/15/17 23:14 Crit Value Read Back Y 12/15/17 23:14 Blood Gas Notified Time 232112/15/17 23:14 Sodium 141 mmol/l (132-148) 12/19/17 06:10 Potassium 3.6 MMOL/L (3.6-5.0) 12/19/17 06:10 Chloride 107 mmol/L (98-107) 12/19/17 06:10 Carbon Dioxide 25 mmol/L (22-30) 12/19/17 06:10 Anion Gap 13 (10-20) 12/19/17 06:10 BUN 4 mg/dl (9-20) L 12/19/17 06:10 Creatinine 1.0 mg/dl (0.8-1.5) 12/19/17 06:10 Est GFR ( Amer) > 60 12/19/17 06:10 Est GFR (Non-Af Amer) > 60 12/19/17 06:10 POC Glucose (mg/dL) 82 mg/dL (65-110) 12/18/17 20:57 Random Glucose 95 mg/dL (75-110) 12/19/17 06:10 Calcium 8.2 mg/dL (8.4-10.2) L 12/19/17 06:10 Total Bilirubin 0.5 mg/dl (0.2-1.3) 12/19/17 06:10 Direct Bilirubin 0.4 mg/ml (0.0-0.4) 12/15/17 22:45 AST 163 U/L (17-59) H D 12/19/17 06:10 ALT 140 U/L (21-72) H 12/19/17 06:10 Alkaline Phosphatase 50 U/L (38-126) 12/19/17 06:10 Ammonia 21 umo/L (16-60) D 12/15/17 22:45 Total Protein 6.3 G/DL (6.3-8.2) 12/19/17 06:10 Albumin 3.3 g/dL (3.5-5.0) L 12/19/17 06:10 Globulin 3.1 gm/dL (2.2-3.9) 12/19/17 06:10 Albumin/Globulin Ratio 1.1 (1.0-2.1) 12/19/17 06:10 Lipase 197 U/L (23-300) 12/15/17 22:45 Venous Blood Potassium 2.3 mmol/L (3.6-5.2) L* 12/15/17 23:14 Urine Color Emelia (YELLOW) 12/15/17 23:30 Urine Clarity Cloudy (Clear) 12/15/17 23:30 Urine pH 6.0 (5.0-8.0) 12/15/17 23:30 Ur Specific [place] 1.018 (1.003-1.030) 12/15/17 23:30 Urine Protein 100 mg/dL (NEGATIVE) 12/15/17 23:30 Urine Glucose (UA) 50 mg/dL (Normal) 12/15/17 23:30 Urine Ketones Trace mg/dL (NEGATIVE) 12/15/17 23:30 Urine Blood Large (NEGATIVE) 12/15/17 23:30 Urine Nitrate Negative (NEGATIVE) 12/15/17 23:30 Urine Bilirubin Negative (NEGATIVE) 12/15/17 23:30 Urine Urobilinogen 0.2-1.0 mg/dL (0.2-1.0) 12/15/17 23:30 Ur Leukocyte Esterase Neg [place]/uL (Negative) 12/15/17 23:30 Urine RBC (Auto) 4 /hpf (0-3) H 12/15/17 23:30 Urine Microscopic WBC 19 /hpf (0-5) H 12/15/17 23:30 Ur Squamous Epith Cells 2 /hpf (0-5) 12/15/17 23:30 Urine Bacteria Rare (<OCC) 12/15/17 23:30 Stool Occult Blood Positive (NEGATIVE) H 12/15/17 22:45 Urine Opiates Screen Negative (NEGATIVE) 12/15/17 23:30 Urine Methadone Screen Negative (NEGATIVE) 12/15/17 23:30 Ur Barbiturates Screen Negative (NEGATIVE) 12/15/17 23:30 Ur Phencyclidine Scrn Negative (NEGATIVE) 12/15/17 23:30 Ur Amphetamines Screen Negative (NEGATIVE) 12/15/17 23:30 U Benzodiazepines Scrn Negative (NEGATIVE) 12/15/17 23:30 U Oth Cocaine Metabols Negative (NEGATIVE) 12/15/17 23:30 U Cannabinoids Screen Negative (NEGATIVE) 12/15/17 23:30 Alcohol, Quantitative < 10 mg/dl (0-10) 12/15/17 22:45 Blood Type A POSITIVE 12/15/17 22:45 Antibody Screen Negative 12/15/17 22:45 Crossmatch See Detail 12/15/17 22:45 BBK History Checked Patient has bt 12/15/17 22:45 - Hospital Course Hospital Course: 32 y/o male with extensive history of EtOH abuse and prior GIB presented again with similar scenario -- UGIB in setting of med noncompliance and EtOH abuse. Pt admitted and closely monitored in ICU. Serial CBC. Transfused PRBC. He was started on Octreotide and Protonix drip. GI consulted (1) UGIB (upper gastrointestinal bleed) prob sec to Gastritis, Shirley Bello Tear vs Gastric Ulcer -ICU monitoring - Hematemesis and melena resolved - tolerated PO diet - serial CBC done - H/H now stable -Protonix gtt and Octreotide drip -GI consulted (Fady) - Pt received IV Ceftriaxone for prophylaxis for GI bleed as WBC count elevated , WBC now normal - cleared by Dr Shrestha for d/c home on PPI 2) Acute renal Failure -- likely 2/2 vol dep from vomiting/blood loss -IVF - improved 3) Hypokalemia due to decrease PO intake -Repleted with KCl 4) EtOH abuse/Withdrawal -CIWA with IV ativan -Vitamins/b12/folic acid - cont Librium- taper off - no signs of withdrawal - PT consulted - stable gait 5. Thrombocytopenia likely due to ETOH 6. Transaminitis prob sec to Alcohol Hepatitis SCDs only for DVT PPx due to low Platelet Status: Acute Discharge Exam - Head Exam Head Exam: ATRAUMATIC, NORMAL INSPECTION, NORMOCEPHALIC - Eye Exam Eye Exam: EOMI, Normal appearance, PERRL Pupil Exam: NORMAL ACCOMODATION - ENT Exam ENT Exam: Mucous Membranes Moist, Normal External Ear Exam - Neck Exam Neck exam: Full Rom - Respiratory Exam Respiratory Exam: NORMAL BREATHING PATTERN. absent: Respiratory Distress - Cardiovascular Exam Cardiovascular Exam: REGULAR RHYTHM, +S1, +S2 - GI/Abdominal Exam GI & Abdominal Exam: Normal Bowel Sounds, Soft. absent: Tenderness - Extremities Exam Extremities exam: full ROM, normal capillary refill, pedal pulses present - Back Exam Back exam: FULL ROM. absent: CVA tenderness (L), CVA tenderness (R) - Neurological Exam Neurological exam: Alert, CN II-XII Intact, Normal Gait, Oriented x3, Reflexes Normal - Psychiatric Exam Psychiatric exam: Normal Affect, Normal Mood - Skin Skin Exam: Dry, Normal Color, Warm Discharge Plan - Discharge Medications Prescriptions: chlordiazePOXIDE [Librium] 10 mg PO Q6 #10 cap Labetalol [Trandate] 100 mg PO BID #60 tab Omeprazole 40 mg PO DAILY #30 capsule.dr - Follow Up Plan Condition: STABLE Disposition: HOME/ ROUTINE Instructions: Gastrointestinal Bleeding (DC), Alcohol Abuse and Alcoholism (DC) Additional Instructions: abtsain from alcohol- abstenerse de alcohol [facility] [place] el 2 de ariane a las 3:40pm con Dr. Landis Referrals: [facility] [Outside] Jennifer Landis [Resident] -
== END 2017-12-19 19:05 | disposition home or self-care (01) | DRG 552 ==
LOC: H.ER 22:24 → H.ERHOLD 23:38 → H.ICU/CCU 12-16 03:26 → H.MEDSURG1 12-18 22:15
PROVIDERS: ADMIT Internal Medicine; ATTEND Internal Medicine
PROC: 30233N1 Transfusion of Nonautologous Red Blood Cells into Peripheral Vein, Percutaneous Approach (ICD-10-PCS; principal; 2017-12-17)
DX: K29.21 Alcoholic gastritis with bleeding (principal); N17.9 Acute kidney failure, unspecified; F10.239 Alcohol dependence with withdrawal, unspecified; D62 Acute posthemorrhagic anemia; D69.59 Other secondary thrombocytopenia; E87.6 Hypokalemia; F20.9 Schizophrenia, unspecified; K70.10 Alcoholic hepatitis without ascites; E83.51 Hypocalcemia; D72.828 Other elevated white blood cell count; E11.9 Type 2 diabetes mellitus without complications; I10 Essential (primary) hypertension; Z91.14 Patient's other noncompliance with medication regimen

== ENCOUNTER 2018-04-25 12:40 | Inpatient (IN) | payer SELFPAY ==
[2018-04-25 12:40] VITALS: BMI 26.4
[2018-04-25 14:50] LABS: BASO % 0.2 % (0.0-2.0); EOS % 0.4 % (0.0-4.0); HEMOGLOBIN 7.7 g/dL (12.0-18.0); LYMPH # 1.1 K/uL (1.0-4.3); MEAN CORPUSCULAR HEMOGLOBIN 20.9 pg (27.0-31.0); MEAN CORPUSCULAR HGB CONC 29.9 g/dL (33.0-37.0); MEAN PLATELET VOLUME 7.9 fl (7.2-11.7); MONO # 0.3 K/uL (0.0-0.8); MONO % 5.3 % (0.0-10.0); NEUT # 3.5 K/uL (1.8-7.0); NEUT % 72.1 % (50.0-75.0); NRBC % 0.3 % (0.0-0.0); RBC 3.7 Mil/uL (4.40-5.90); RED CELL DISTRIBUTION WIDTH 23.2 % (11.5-14.5); WHITE BLOOD COUNT 4.9 K/uL (4.8-10.8)
[2018-04-25 15:07] LABS: ALBUMIN 3.9 g/dL (3.5-5.0); ALT/SGPT 97 U/L (21-72); AST/SGOT 168 U/L (17-59); BLOOD UREA NITROGEN 9 mg/dl (9-20); CALCIUM 8.1 mg/dL (8.4-10.2); GFR NON-AFRICAN AMERICAN > 60
[2018-04-25] MEDS ORDERED: Potassium Chloride 20 mEq ER Tab PO STA (19:59)
[2018-04-25] MEDS ORDERED: Multivitamin (MVI) 10 ML, Thiamine 100 MG, Folic Acid 1 MG in Dextrose 5%/0.45% NS 1,00... IV ONE (20:50)
--- NOTE | 2018-04-25 20:59 | ED PDOC ---
HPI: Psych/Substance Abuse Time Seen by Provider: 04/25/18 12:51 Chief Complaint (Nursing): Alcohol Ingestion Chief Complaint (Provider): Alcohol Ingestion ED Caveat: Intoxicated History Per: Patient History/Exam Limitations: intoxication Modifying Factor(s): Alcohol Additional Complaint(s): 32 y/o male with history of alcohol abuse presents to the ED for intoxication. Patient was found sleeping outside and witnesses report they saw him drinking vodka. Patient is alert but no oriented on arrival to ED. Just answers yes or no questions and gives minimal responses. Patient admits to drinking and states he drinks everyday. Past Medical History Reviewed: Historical Data, Nursing Documentation, Vital Signs Vital Signs: Last Vital Signs Temp 96.8 F L 04/25/18 12:42 Pulse 97 H 04/25/18 12:42 Resp 16 04/25/18 12:42 BP 168/100 H 04/25/18 12:42 Pulse Ox 97 04/25/18 12:42 - Medical History PMH: Diabetes, Fractures, HTN, Schizophrenia Denies: Anxiety, Bipolar Disorder, Depression, Hepatitis, HIV, Personality Disorder, Chronic Kidney Disease, Seizures, Sexually Transmitted Disease - Surgical History Surgical History: Endoscopy - Family History Family History: States: Unknown Family Hx - Social History Alcohol: > 2 Drinks/Day - Home Medications Home Medications: Ambulatory Orders Medication Instructions Recorded Thiamine [Vitamin B1 Tab] 100 mg PO DAILY #30 tab 09/16/17 risperiDONE [RisperDAL Tab] 1 mg PO BID tab 09/16/17 Folic Acid 1 mg PO DAILY #10 tab 12/19/17 Labetalol [Trandate] 100 mg PO BID #60 tab 12/19/17 Omeprazole 40 mg PO DAILY #30 valerie. 12/19/17 chlordiazePOXIDE [Librium] 10 mg PO Q6 #10 cap 12/19/17 - Allergies Allergies/Adverse Reactions: Allergies Allergy/AdvReac Type Severity Reaction Status Date / Time No Known Allergies Allergy Verified 04/25/18 12:41 Review of Systems Review Of Systems: ROS cannot be obtained secondary to pt's inabilty to answer questions. (due to intoxication) Physical Exam - Reviewed Nursing Documentation Reviewed: Yes Vital Signs Reviewed: Yes - Physical Exam Appears: Positive for: Non-toxic, No Acute Distress Head Exam: Positive for: ATRAUMATIC, NORMOCEPHALIC Skin: Positive for: Normal Color, Warm, DRY Eye Exam: Positive for: EOMI, Normal appearance, PERRL Neck: Positive for: Normal, Painless ROM Cardiovascular/Chest: Positive for: Regular Rate, Rhythm. Negative for: Murmur, Bradycardia, Tachycardia Respiratory: Positive for: Normal Breath Sounds. Negative for: Respiratory Distress Gastrointestinal/Abdominal: Positive for: Normal Exam, Soft. Negative for: Tenderness Extremity: Positive for: Normal ROM. Negative for: Pedal Edema, Deformity Neurologic/Psych: Positive for: Alert. Negative for: Oriented, Motor/Sensory Deficits - Laboratory Results Result Diagrams: 04/25/18 14:40 04/25/18 14:40 - ECG O2 Sat by Pulse Oximetry: 97 (RA) Pulse Ox Interpretation: Normal Medical Decision Making Medical Decision Making: Time: 13:41 Initial Impression: alcohol intoxication Initial Plan: Alcohol serum CMP CBC w/ diff 19:40 Labs reviewed given H&H levels labs are significant for anemia. On reevaluation patient threw up and reports blood in vomited. Pt also reports epigastric pain. 20:53 Additional labs ordered. Patient will be admitted due to significance for anemia. * Type and screen * Prothrombin time * PTT * Amonia * Lipase * Banana bag * Protonix Discussed admission with Dr. Armstrong. Scribe Attestation: Documented by Mukesh Camejo, acting as a scribe for Dede Alba PA-C. Provider Scribe Attestation: All medical record entries made by the Scribe were at my direction and personally dictated by me. I have reviewed the chart and agree that the record accurately reflects my personal performance of the history, physical exam, medical decision making, and the department course for this patient. I have also personally directed, reviewed, and agree with the discharge instructions and disposition. Disposition - Clinical Impression Clinical Impression: Alcohol abuse with intoxication, UGIB (upper gastrointestinal bleed) - Patient ED Disposition Is Patient to be Admitted: Yes - Disposition Disposition Time: 22:12 Condition: FAIR Instructions: Gastrointestinal Bleeding Forms: [facility] (Lao)
[2018-04-25] MEDS ORDERED: Potassium Chloride 20 mEq ER Tab PO ONE (21:24)
[2018-04-25 21:51] LABS: INR 1.1; PROTHROMBIN TIME 12.7 Seconds (9.8-13.1)
[2018-04-25 21:54] LABS: PARTIAL THROMBOPLASTIN TIME 34.2 Seconds (25.6-37.1)
--- NOTE | 2018-04-25 22:30 | CP.PCM.HP ---
<Sarita Pimentel - Last Filed: 04/25/18 23:19> History of Present Illness - History of Present Illness History of Present Illness: CC: ETOH intoxication HPI: 32 YO Male with PMHx of HTN, schizophrenia, ETOH abuse, Anemia (req 2 units PRBC in the past) presented to [facility] ED for ETOH intoxication. Pt was found in the street intoxicated and was brought to the ED. While in the ED, pt had 1x episode of bloody emesis. Pt states that for the past 3 days he has been throwing up, and today is the first day where there was blood in emesis. Endorsing mild epigastric pain, denies n/d/c. Last BM was today and no blood noted. Pt is current intoxicated but awake and alert, hx obtained from patient and hollie rt review. PMD: none PMHx: HTN, schizophrenia SHx: Right shoulder fracture surgery Family Hx: denies Social Hx: Lives with friends, no tobacco, extensive EtOH for 20 years; up to 3 bottles of hard liquor like vodka daily, denies illicit drug use Allergies: NKDA Present on Admission - Present on Admission Any Indicators Present on Admission: No Review of Systems - Constitutional Constitutional: absent: Chills, Fever - Cardiovascular Cardiovascular: absent: Chest Pain, Dyspnea, Palpitations - Respiratory Respiratory: absent: Cough, Dyspnea - Gastrointestinal Gastrointestinal: Abdominal Pain, Nausea, Vomiting Past Patient History - Past Medical History & Family History Past Medical History?: Yes - Past Social History Smoking Status: Never Smoked Alcohol: > 2 Drinks/Day Drugs: Denies Home Situation {Lives}: Friends - CARDIAC Hx Hypertension: Yes - PULMONARY Hx Respiratory Disorders: No Hx Tuberculosis: No - NEUROLOGICAL Hx Seizures: No - HEENT Hx HEENT Problems: No - RENAL Hx Chronic Kidney Disease: No - ENDOCRINE/METABOLIC Hx Diabetes Mellitus Type 2: Yes - HEMATOLOGICAL/ONCOLOGICAL Hx Human Immunodeficiency Virus (HIV): No - INTEGUMENTARY Hx Dermatological Problems: No - MUSCULOSKELETAL/RHEUMATOLOGICAL Hx Fractures: Yes - GASTROINTESTINAL Hx Gastrointestinal Disorders: No - GENITOURINARY/GYNECOLOGICAL Hx Sexually Transmitted Disorders: No - PSYCHIATRIC Hx Anxiety: No Hx Bipolar Disorder: No Hx Depression: No Hx Schizophrenia: Yes - SURGICAL HISTORY Hx Surgeries: Yes - ANESTHESIA Hx Anesthesia: Yes Hx Anesthesia Reactions: No Meds Allergies/Adverse Reactions: Allergies Allergy/AdvReac Type Severity Reaction Status Date / Time No Known Allergies Allergy Verified 04/25/18 12:41 Physical Exam - Constitutional Appears: No Acute Distress, Other (intoxicated, but alert and awake ) - Head Exam Head Exam: NORMAL INSPECTION - Eye Exam Eye Exam: EOMI, Normal appearance. absent: Scleral icterus - ENT Exam ENT Exam: Mucous Membranes Moist - Respiratory Exam Respiratory Exam: Clear to Auscultation Bilateral, NORMAL BREATHING PATTERN. absent: Wheezes - Cardiovascular Exam Cardiovascular Exam: REGULAR RHYTHM, +S1, +S2 - GI/Abdominal Exam GI & Abdominal Exam: Normal Bowel Sounds, Soft, Tenderness (to palpation of the epigastria area ). absent: Guarding, Rebound, Rigid - Extremities Exam Extremities exam: Positive for: normal inspection. Negative for: calf tenderness, pedal edema - Neurological Exam Neurological exam: Alert, Oriented x3 (to person, place and month/year ) - Skin Skin Exam: Mottled, Pallor Results - Vital Signs Recent Vital Signs: Last Vital Signs Temp 98.8 F 04/25/18 22:11 Pulse 105 H 04/25/18 22:11 Resp 17 04/25/18 22:11 BP 147/85 04/25/18 22:11 Pulse Ox 97 04/25/18 22:12 - Labs Result Diagrams: 04/25/18 14:40 04/25/18 14:40 Labs: Laboratory Results - last 24 hr 04/25/18 04/25/18 04/25/18 14:38 14:40 14:40 WBC 4.9 RBC 3.70 L Hgb 7.7 L Hct 25.9 L MCV 70.0 L D MCH 20.9 L MCHC 29.9 L RDW 23.2 H Plt Count 231 MPV 7.9 Neut % (Auto) 72.1 Lymph % (Auto) 22.0 [place] % (Auto) 5.3 Eos % (Auto) 0.4 Baso % (Auto) 0.2 Neut # (Auto) 3.5 Lymph # (Auto) 1.1 [facility] # (Auto) 0.3 Eos # (Auto) 0.0 Baso # (Auto) 0.0 PT INR APTT Sodium 145 Potassium 3.0 L Chloride 102 Carbon Dioxide 28 Anion Gap 18 BUN 9 Creatinine 0.7 L Est GFR ( Amer) > 60 Est GFR (Non-Af Amer) > 60 POC Glucose (mg/dL) 90 Random Glucose 103 Calcium 8.1 L Total Bilirubin 0.3 AST 168 H ALT 97 H D Alkaline Phosphatase 90 Ammonia Total Protein 7.6 Albumin 3.9 Globulin 3.7 Albumin/Globulin Ratio 1.0 Lipase Alcohol, Quantitative 472 H* 04/25/18 04/25/18 04/25/18 21:40 21:40 21:40 WBC RBC Hgb Hct MCV MCH MCHC RDW Plt Count MPV Neut % (Auto) Lymph % (Auto) [facility] % (Auto) Eos % (Auto) Baso % (Auto) Neut # (Auto) Lymph # (Auto) [facility] # (Auto) Eos # (Auto) Baso # (Auto) PT 12.7 INR 1.1 APTT 34.2 Sodium Potassium Chloride Carbon Dioxide Anion Gap BUN Creatinine Est GFR ( Amer) Est GFR (Non-Af Amer) POC Glucose (mg/dL) Random Glucose Calcium Total Bilirubin AST ALT Alkaline Phosphatase Ammonia 19 Total Protein Albumin Globulin Albumin/Globulin Ratio Lipase 260 Alcohol, Quantitative Assessment & Plan - Assessment and Plan (Free Text) Assessment: Assessment/Plan: 32 YO Male with PMHx of HTN, schizophrenia, ETOH abuse, Anemia (req transfusion) is admitted for ETOH intoxication and GI bleed. GI bleed -acute, likely UGIB 2/2 to Shirley Bello, gastritis, UD -VS stable now -GI consulted, follow up recs -start IV protonix -NPO -c/w IV fluids Anemia -acute on chronic 2/2 to GI bleed -down from 9 (11/2017) to 7.7 -type and screen -will transfuse if Hb drops below 7 or patient becomes symptomatic or actively bleeding -c/w IVF -follow up AM labs ETOH abuse/ intoxication -acute on chronic -ETOH level 400+ -s/p ativan in ED -CIWA on admission 8 -ativan PRN withdraw -c/w banana bag in ED -s/w Thiamin IM Hypokalemia -s/p KCl in ED -replace prn -follow up AM labs Elevated Liver enzymes -chronic -likely 2/2 to ETOH hepatitis -Hep panel and HIV neg in 2017 HTN -chronic, non-compliance with meds -hold PO meds for now -give IV as needed Schizophrenia -hold PO meds for now -restart when tolerating PO DVT prolx -No Lovenox now given GI bleed -SCDs for now <Keanu Armstrong - Last Filed: 04/26/18 01:09> Results - Vital Signs Recent Vital Signs: Last Vital Signs Temp 98.2 F 04/26/18 00:17 Pulse 107 H 04/26/18 00:17 Resp 18 04/26/18 00:17 BP 129/72 04/26/18 00:17 Pulse Ox 97 04/26/18 00:17 - Labs Result Diagrams: 04/25/18 14:40 04/25/18 14:40 Labs: Laboratory Results - last 24 hr 04/25/18 04/25/18 04/25/18 14:38 14:40 14:40 WBC 4.9 RBC 3.70 L Hgb 7.7 L Hct 25.9 L MCV 70.0 L D MCH 20.9 L MCHC 29.9 L RDW 23.2 H Plt Count 231 MPV 7.9 Neut % (Auto) 72.1 Lymph % (Auto) 22.0 [facility] % (Auto) 5.3 Eos % (Auto) 0.4 Baso % (Auto) 0.2 Neut # (Auto) 3.5 Lymph # (Auto) 1.1 [facility] # (Auto) 0.3 Eos # (Auto) 0.0 Baso # (Auto) 0.0 PT INR APTT Sodium 145 Potassium 3.0 L Chloride 102 Carbon Dioxide 28 Anion Gap 18 BUN 9 Creatinine 0.7 L Est GFR ( Amer) > 60 Est GFR (Non-Af Amer) > 60 POC Glucose (mg/dL) 90 Random Glucose 103 Calcium 8.1 L Total Bilirubin 0.3 AST 168 H ALT 97 H D Alkaline Phosphatase 90 Ammonia Total Protein 7.6 Albumin 3.9 Globulin 3.7 Albumin/Globulin Ratio 1.0 Lipase Alcohol, Quantitative 472 H* Blood Type Antibody Screen BBK History Checked 04/25/18 04/25/18 04/25/18 21:40 21:40 21:40 WBC RBC Hgb Hct MCV MCH MCHC RDW Plt Count MPV Neut % (Auto) Lymph % (Auto) [facility] % (Auto) Eos % (Auto) Baso % (Auto) Neut # (Auto) Lymph # (Auto) [facility] # (Auto) Eos # (Auto) Baso # (Auto) PT INR APTT Sodium Potassium Chloride Carbon Dioxide Anion Gap BUN Creatinine Est GFR ( Amer) Est GFR (Non-Af Amer) POC Glucose (mg/dL) Random Glucose Calcium Total Bilirubin AST ALT Alkaline Phosphatase Ammonia 19 Total Protein Albumin Globulin Albumin/Globulin Ratio Lipase 260 Alcohol, Quantitative Blood Type A POSITIVE Antibody Screen Negative BBK History Checked Patient has bt 04/25/18 21:40 WBC RBC Hgb Hct MCV MCH MCHC RDW Plt Count MPV Neut % (Auto) Lymph % (Auto) [facility] % (Auto) Eos % (Auto) Baso % (Auto) Neut # (Auto) Lymph # (Auto) [facility] [place] # (Auto) Eos # (Auto) Baso # (Auto) PT 12.7 INR 1.1 APTT 34.2 Sodium Potassium Chloride Carbon Dioxide Anion Gap BUN Creatinine Est GFR ( Amer) Est GFR (Non-Af Amer) POC Glucose (mg/dL) Random Glucose Calcium Total Bilirubin AST ALT Alkaline Phosphatase Ammonia Total Protein Albumin Globulin Albumin/Globulin Ratio Lipase Alcohol, Quantitative Blood Type Antibody Screen BBK History Checked Attending/Attestation - Attestation I have personally seen and examined this patient.: Yes I have fully participated in the care of the patient.: Yes I have reviewed all pertinent clinical information: Yes Notes (Text): 04/26/18 00:59 I saw, examined and discussed this patient with Dr pimentel. I agree with the assessment and plan outlined above. This is a 32 years old male , alcohol dependent with multiple previous episodes of upper GI bleed, comes with Alcohol Intoxication and had an episode of hematemesis in the ED. We will consult with Gastroenterology and start a Pantoprazole drip. No Oc treotide. Hemoglobin q6 hours and transfuse PRBC if the hemoglobin falls below 7gm/dl. Observe for Alcohol withdrawal. CIWA protocol. Ativan if needed for Agitation, Banana bag which includes Thiamine, Folic Acid and Multivitamin. Observe for Seizure. Keanu Armstrong MD
[2018-04-25] MEDS ORDERED: Lactulose 10 gm/15 ml (Rectal Use) PR ONE (22:44)
[2018-04-25] MEDS ORDERED: Potassium Chl 20 mEq in D5-NS 1,000 ML IV SCH (23:15)
[2018-04-26] MEDS: Pantoprazole 40 MG in Sodium Chloride 0.9% 100 ML IVPB SCH ×6 (01:07→20:33)
[2018-04-26 05:27] LABS: BASO % 0.6 % (0.0-2.0); EOS % 0.4 % (0.0-4.0); LYMPH # 0.8 K/uL (1.0-4.3); LYMPH % 15.5 % (20.0-40.0); MEAN CELL VOLUME 68.1 fl (80.0-94.0); MEAN CORPUSCULAR HGB CONC 30.8 g/dL (33.0-37.0); MEAN PLATELET VOLUME 7.4 fl (7.2-11.7); MONO # 0.6 K/uL (0.0-0.8); MONO % 10.4 % (0.0-10.0); NEUT % 73.1 % (50.0-75.0); NRBC % 0.1 % (0.0-0.0); RBC 3.02 Mil/uL (4.40-5.90); RED CELL DISTRIBUTION WIDTH 22.8 % (11.5-14.5); WHITE BLOOD COUNT 5.4 K/uL (4.8-10.8)
[2018-04-26 05:37] LABS: ALBUMIN 3.2 g/dL (3.5-5.0); ALT/SGPT 83 U/L (21-72); AST/SGOT 140 U/L (17-59); BLOOD UREA NITROGEN 8 mg/dl (9-20); CALCIUM 7.8 mg/dL (8.4-10.2); GFR NON-AFRICAN AMERICAN > 60
[2018-04-26 05:38] LABS: HEMOGLOBIN 6.3 g/dL (12.0-18.0)
[2018-04-26] MEDS ORDERED: Potassium Chloride 20 mEq 100 ML IVPB SCH (06:00)
[2018-04-26] MEDS ORDERED: Potassium Chl 20 mEq in D5-NS 1,000 ML IV SCH (06:00)
[2018-04-26] MEDS ORDERED: Potassium Chl 40 mEq in D5-NS 1,000 ML IV SCH (08:00)
[2018-04-26] MEDS ORDERED: Thiamine 100 mg/ml Inj IM SCH (09:00)
[2018-04-26] MEDS ORDERED: Enoxaparin 40 mg Syringe SC SCH (09:00)
--- NOTE | 2018-04-26 10:22 | RAD ---
Date of service: 04/26/2018 HISTORY: GI bleed COMPARISON: Frontal chest radiograph 12/15/2017. FINDINGS: LUNGS: No active pulmonary disease. PLEURA: No significant pleural effusion identified, no pneumothorax apparent. CARDIOVASCULAR: No aortic atherosclerotic calcification present. Normal cardiac size. No pulmonary vascular congestion. OSSEOUS STRUCTURES: No significant abnormalities. VISUALIZED UPPER ABDOMEN: Normal. OTHER FINDINGS: None. IMPRESSION: No interval acute cardiopulmonary disease appreciated.
--- NOTE | 2018-04-26 10:43 | CP.PCM.PN ---
Subjective - Date & Time of Evaluation Date of Evaluation: 04/26/18 Time of Evaluation: 07:00 - Subjective Subjective: Pt seen and examined at bed side. Pt state he had a bloody vomit overnight once, but since then he is feeling better. He state he feel pain all over body, mostly abdomen and epigastric. Otherwise patient was able to sleep, had 1 bm and pass urine denies any blood. Pt have no complain. Objective - Vital Signs/Intake and Output Vital Signs (last 24 hours): Temp Pulse Resp BP Pulse Ox 98.6 F 103 H 18 130/70 96 04/26/18 10:14 04/26/18 10:14 04/26/18 10:14 04/26/18 10:14 04/26/18 09:00 Intake and Output: 04/26/18 04/26/18 06:59 18:59 Intake Total 0 Balance 0 - Medications Medications: Current Medications Acetaminophen (Tylenol 650 Mg Supp) 650 mg [place] Q6 PRN PRN Reason: Fever >100.4 F Last Admin: 04/26/18 04:24 Dose: 650 mg Pantoprazole Sodium 40 mg/ (Sodium Chloride) 100 mls @ 8 mls/hr IVPB Q5H [facility] Last Admin: 04/26/18 09:25 Dose: 8 mls/hr Potassium Chloride/Dextrose/Sod Cl (D5-Ns1l+40meq Kcl) 1,000 mls @ 120 mls/hr IV .Q8H20M [facility] Stop: 04/27/18 07:48 Lorazepam (Ativan) 2 mg IVP Q2H PRN PRN Reason: Symptoms of alcohol withdrawl Last Admin: 04/26/18 05:29 Dose: 2 mg Ondansetron HCl (Zofran Inj) 4 mg IVP Q6 PRN PRN Reason: Nausea/Vomiting Thiamine HCl (Vitamin B1 Inj) 100 mg IM DAILY [facility] Last Admin: 04/26/18 10:27 Dose: 100 mg - Labs Labs: 04/26/18 05:05 04/26/18 05:05 PT 12.7 Seconds (9.8-13.1) 04/25/18 21:40 INR 1.1 04/25/18 21:40 APTT 34.2 Seconds (25.6-37.1) 04/25/18 21:40 - Constitutional Appears: Well, Non-toxic, No Acute Distress - Head Exam Head Exam: ATRAUMATIC, NORMAL INSPECTION, NORMOCEPHALIC - Eye Exam Eye Exam: EOMI, Normal appearance, PERRL Pupil Exam: NORMAL ACCOMODATION, PERRL - ENT Exam ENT Exam: Mucous Membranes Moist, Normal Exam - Neck Exam Neck Exam: Full ROM, Normal Inspection - Respiratory Exam Respiratory Exam: Chest Wall Tenderness, Clear to Ausculation Bilateral, NORMAL BREATHING PATTERN - Cardiovascular Exam Cardiovascular Exam: REGULAR RHYTHM, +S1, +S2 - GI/Abdominal Exam GI & Abdominal Exam: Soft, Normal Bowel Sounds - Extremities Exam Extremities Exam: Full ROM, Normal Capillary Refill, Normal Inspection Additional comments: Tremor noted b/l upper extremity - Back Exam Back Exam: NORMAL INSPECTION - Neurological Exam Neurological Exam: Alert, Awake - Psychiatric Exam Psychiatric exam: Normal Affect, Normal Mood Assessment and Plan - Assessment and Plan (Free Text) Assessment: 32 YO Male with PMHx of HTN, schizophrenia, ETOH abuse, Anemia (req transfusion) is admitted for ETOH intoxication and GI bleed. GI bleed -acute, likely Upper GI bleed most likely to Shirley Bello, gastritis, UD -Vital sign stable except fo4 tachycardia most likely due to anemia -F/U GI recommendation -Continue IV protonix -NPO -Continue IV fluids Anemia -acute on chronic to GI bleed -Still dropping last 6.3 -type and screen done -Consent for transfusion done, Will transfuse 2 pack blood. -Continue IVF -F/U H/H Hypokalemia -Potassium 2.9 -s/p potassium 20mg -Start IV 40 KCL with D5 - F/U Potassium ETOH abuse/ intoxication -acute on chronic -ETOH level 400+ -Continue ativan Q4h prn withdraw -s/w Thiamin IM Elevated Liver enzymes -chronic -AST/ALT improving 168/97->140/83 -likely 2/2 to ETOH hepatitis -Hep panel and HIV neg in 2017 HTN -chronic, non-compliance with meds -PO med on hold -give IV as needed Schizophrenia -hold PO meds for now -restart when tolerating PO DVT prophylaxis -No Lovenox now given GI bleed -SCDs for now
[2018-04-26] MEDS: Potassium Chl 40 mEq in D5-NS 1,000 ML IV SCH ×2 (10:57→18:28)
[2018-04-26] MEDS ORDERED: Magnesium Sulfate 1 gm in D5W 1 GM/100 ML BAG IVPB ONE (15:43)
[2018-04-26 20:35] LABS: BASO % 0.4 % (0.0-2.0); EOS % 0.6 % (0.0-4.0); HEMOGLOBIN 8.3 g/dL (12.0-18.0); LYMPH # 0.9 K/uL (1.0-4.3); LYMPH % 12.5 % (20.0-40.0); MEAN CELL VOLUME 71.2 fl (80.0-94.0); MEAN CORPUSCULAR HEMOGLOBIN 22.1 pg (27.0-31.0); MEAN CORPUSCULAR HGB CONC 31.1 g/dL (33.0-37.0); MEAN PLATELET VOLUME 8.4 fl (7.2-11.7); MONO # 0.7 K/uL (0.0-0.8); MONO % 10.1 % (0.0-10.0); NEUT # 5.4 K/uL (1.8-7.0); NEUT % 76.4 % (50.0-75.0); NRBC % 0.6 % (0.0-0.0); RBC 3.75 Mil/uL (4.40-5.90); RED CELL DISTRIBUTION WIDTH 22.6 % (11.5-14.5)
[2018-04-26 20:47] LABS: BLOOD UREA NITROGEN 7 mg/dl (9-20); CALCIUM 8.2 mg/dL (8.4-10.2); GFR NON-AFRICAN AMERICAN > 60
[2018-04-27] MEDS: Potassium Chl 40 mEq in D5-NS 1,000 ML IV SCH (01:00)
[2018-04-27] MEDS: Pantoprazole 40 MG in Sodium Chloride 0.9% 100 ML IVPB SCH ×5 (01:16→21:48)
[2018-04-27 08:17] LABS: ALB/GLOB RATIO 0.9 (1.0-2.1); ALBUMIN 3.3 g/dL (3.5-5.0); ALT/SGPT 66 U/L (21-72); AST/SGOT 77 U/L (17-59); BLOOD UREA NITROGEN 4 mg/dl (9-20); CALCIUM 8.3 mg/dL (8.4-10.2); GFR NON-AFRICAN AMERICAN > 60
[2018-04-27 08:20] LABS: HEMOGLOBIN 8.9 g/dL (12.0-18.0); MEAN CELL VOLUME 71.8 fl (80.0-94.0); MEAN CORPUSCULAR HGB CONC 30.7 g/dL (33.0-37.0); RBC 4.04 Mil/uL (4.40-5.90); RED CELL DISTRIBUTION WIDTH 23.1 % (11.5-14.5); WHITE BLOOD COUNT 5.3 K/uL (4.8-10.8)
--- NOTE | 2018-04-27 12:33 | CP.PCM.PN ---
<Lisa Chung - Last Filed: 04/27/18 12:28> Subjective - Date & Time of Evaluation Date of Evaluation: 04/27/18 Time of Evaluation: 08:15 - Subjective Subjective: Patient seen and examined at bedside this morning with attending, Dr. Medina. Pt denies any new episode of hematemesis. Had low grade fever of 100.7 F last night. S/p transfusion of 2 units of PRBC yesterday. No evidence of blood productions reaction. Hgb improved, and stable after transfusion. Awaiting of GI evaluation. Objective - Vital Signs/Intake and Output Vital Signs (last 24 hours): Temp Pulse Resp BP Pulse Ox 98.5 F 84 20 152/85 H 99 04/27/18 08:05 04/27/18 08:05 04/27/18 08:05 04/27/18 08:05 04/27/18 08:05 - Medications Medications: Current Medications Acetaminophen (Tylenol 325mg Tab) 650 mg PO Q6 PRN PRN Reason: Fever >100.4 F Last Admin: 04/27/18 01:39 Dose: 650 mg Chlordiazepoxide (Librium) 25 mg PO Q8 [facility] Last Admin: 04/27/18 09:24 Dose: 25 mg Folic Acid (Folic Acid) 1 mg PO DAILY [facility] Last Admin: 04/27/18 09:20 Dose: 1 mg Pantoprazole Sodium 40 mg/ (Sodium Chloride) 100 mls @ 20 mls/hr IVPB Q5H [facility] Last Admin: 04/27/18 11:50 Dose: 20 mls/hr Lorazepam (Ativan) 1 mg PO Q4 PRN PRN Reason: Agitation Last Admin: 04/27/18 12:28 Dose: 1 mg Ondansetron HCl (Zofran Inj) 4 mg IVP Q6 PRN PRN Reason: Nausea/Vomiting Thiamine HCl (Vitamin B1 Tab) 100 mg PO DAILY [facility] Last Admin: 04/27/18 09:21 Dose: 100 mg - Labs Labs: 04/27/18 06:00 04/27/18 06:00 PT 12.7 Seconds (9.8-13.1) 04/25/18 21:40 INR 1.1 04/25/18 21:40 APTT 34.2 Seconds (25.6-37.1) 04/25/18 21:40 - Skin Additional comments: Constitutional Appears: Well, Non-toxic, No Acute Distress - Head Exam Head Exam: ATRAUMATIC, NORMAL INSPECTION, NORMOCEPHALIC - Eye Exam Eye Exam: EOMI, Normal appearance - ENT Exam ENT Exam: Mucous Membranes Moist - Neck Exam Neck Exam: Full ROM, Normal Inspection - Respiratory Exam Respiratory Exam:Clear to Ausculation Bilateral, NORMAL BREATHING PATTERN - Cardiovascular Exam Cardiovascular Exam: REGULAR RHYTHM, +S1, +S2 - GI/Abdominal Exam GI & Abdominal Exam: Soft, Normal Bowel Sounds, No tenderness to palpation, no rigidity or guarding noted - Extremities Exam Extremities Exam: Full ROM, Normal Capillary Refill, Normal Inspection - Back Exam Back Exam: NORMAL INSPECTION - Neurological Exam Neurological Exam: Alert, Awake, Tremor noted b/l upper extremity - Psychiatric Exam Psychiatric exam: Normal Affect, Normal Mood Assessment and Plan - Assessment and Plan (Free Text) Assessment: 32 y/o M with PMHx of HTN, schizophrenia, ETOH abuse, Anemia, GIbleed is admitted for ETOH intoxication , ETOH level 472 and GI bleed with Hgb 6.3. On admission patient received 2 units of PRBC. No evidence of blood productions reaction. After transfusion Hgb improved to 8.3, and has been stable. No evidence of active bleeding this morning. GI was consulted. Pending evaluation, and recommendations. Patient is on PPI, Folic Acid, Thiamine, and CIWA protocol with Librium shaka, and Ativan PRN. Plan: GI bleed -acute, likely Upper GI bleed most likely to Shirley Bello, gastritis, UD -no evidence of active GI bleeding at this time -s/p 2 units of PRBC -Hgb improved from 6.3 to 8.9 -c/w PPI -on liquid diet -GI consulted. Pending Eval x possible endoscopy. Recs are appreciated Anemia -acute on chronic, likely 2/2 GI bleeding -Hgb improving from 6.3 to 8.9 -s/p 2 units of PRBC -FOBT pending Hypokalemia resolved after replacement with PO, and IV potassium -Potassium 4.0 ETOH abuse/ intoxication -acute on chronic -ETOH level 400+ on admission -c/w Librium 25 mg Q8 shaka -c/w Ativan 1 mg PO Q4h prn -c/w Thiamine, and folic acid -monitor for withdrawal S/S Elevated Liver enzymes -chronic -AST/ALT improving 168/97->140/83 -likely 2/2 to ETOH hepatitis -Hep panel and HIV neg in 2017 HTN uncontrolled, asymptomatic -chronic, poor adherence to home med Schizophrenia -c/w home med DVT prophylaxis -SCDs -admitted with active GI bleeding <AdamAnna - Last Filed: 04/28/18 09:28> Objective - Vital Signs/Intake and Output Vital Signs (last 24 hours): Temp Pulse Resp BP Pulse Ox 98.5 F 92 H 20 140/92 H 98 04/28/18 08:16 04/28/18 08:16 04/28/18 08:16 04/28/18 08:16 04/28/18 08:16 - Medications Medications: Current Medications Acetaminophen (Tylenol 325mg Tab) 650 mg PO Q6 PRN PRN Reason: Fever >100.4 F Last Admin: 04/27/18 01:39 Dose: 650 mg Acetaminophen (Tylenol 325mg Tab) 325 mg PO Q6 PRN PRN Reason: Pain, Mild (1-3) Last Admin: 04/28/18 03:51 Dose: 325 mg Chlordiazepoxide (Librium) 25 mg PO Q8 [facility] Last Admin: 04/28/18 08:40 Dose: 25 mg Folic Acid (Folic Acid) 1 mg PO DAILY [facility] Last Admin: 04/28/18 08:33 Dose: 1 mg Pantoprazole Sodium 40 mg/ (Sodium Chloride) 100 mls @ 20 mls/hr IVPB Q5H [facility] Last Admin: 04/28/18 07:14 Dose: 20 mls/hr Lorazepam (Ativan) 1 mg PO Q4 PRN PRN Reason: Agitation Last Admin: 04/27/18 16:44 Dose: 1 mg Ondansetron HCl (Zofran Inj) 4 mg IVP Q6 PRN PRN Reason: Nausea/Vomiting Risperidone (Risperdal Tab) 1 mg PO BID [facility] Last Admin: 04/28/18 08:33 Dose: 1 mg Thiamine HCl (Vitamin B1 Tab) 100 mg PO DAILY [facility] Last Admin: 04/28/18 08:33 Dose: 100 mg - Labs Labs: 04/28/18 06:00 04/27/18 06:00 PT 12.7 Seconds (9.8-13.1) 04/25/18 21:40 INR 1.1 04/25/18 21:40 APTT 34.2 Seconds (25.6-37.1) 04/25/18 21:40 Attending/Attestation - Attestation I have personally seen and examined this patient.: Yes I have fully participated in the care of the patient.: Yes I have reviewed all pertinent clinical information, including history, physical exam and plan: Yes Notes (Text): 04/28/18 09:27 Seen examined and discussed with resident. Agree with findings and plan as above. Discussed with GI. Patient has been scoped in past. If bleeding stopped, H/H stable, then adv diet tomorrow and d/c with follow up GI and PCP. Librium taper for withdrawal sx.
--- NOTE | 2018-04-27 22:20 | CP.PCM.PN ---
Subjective - Date & Time of Evaluation Date of Evaluation: 04/27/18 Time of Evaluation: 17:30 - Subjective Subjective: no overnight events Objective - Vital Signs/Intake and Output Vital Signs (last 24 hours): Temp Pulse Resp BP Pulse Ox 100.2 F H 116 H 16 124/86 100 04/27/18 19:53 04/27/18 19:53 04/27/18 19:53 04/27/18 19:53 04/27/18 19:53 - Medications Medications: Current Medications Acetaminophen (Tylenol 325mg Tab) 650 mg PO Q6 PRN PRN Reason: Fever >100.4 F Last Admin: 04/27/18 01:39 Dose: 650 mg Acetaminophen (Tylenol 325mg Tab) 325 mg PO Q6 PRN PRN Reason: Pain, Mild (1-3) Last Admin: 04/27/18 19:14 Dose: 325 mg Chlordiazepoxide (Librium) 25 mg PO Q8 [facility] Last Admin: 04/27/18 16:44 Dose: 25 mg Folic Acid (Folic Acid) 1 mg PO DAILY [facility] Last Admin: 04/27/18 09:20 Dose: 1 mg Pantoprazole Sodium 40 mg/ (Sodium Chloride) 100 mls @ 20 mls/hr IVPB Q5H [facility] Last Admin: 04/27/18 21:48 Dose: 20 mls/hr Lorazepam (Ativan) 1 mg PO Q4 PRN PRN Reason: Agitation Last Admin: 04/27/18 16:44 Dose: 1 mg Ondansetron HCl (Zofran Inj) 4 mg IVP Q6 PRN PRN Reason: Nausea/Vomiting Risperidone (Risperdal Tab) 1 mg PO BID [facility] Last Admin: 04/27/18 16:45 Dose: 1 mg Thiamine HCl (Vitamin B1 Tab) 100 mg PO DAILY [facility] Last Admin: 04/27/18 09:21 Dose: 100 mg - Labs Labs: 04/27/18 06:00 04/27/18 06:00 PT 12.7 Seconds (9.8-13.1) 04/25/18 21:40 INR 1.1 04/25/18 21:40 APTT 34.2 Seconds (25.6-37.1) 04/25/18 21:40 - Head Exam Head Exam: NORMOCEPHALIC - Neck Exam Neck Exam: Normal Inspection - Respiratory Exam Respiratory Exam: Clear to Ausculation Bilateral, NORMAL BREATHING PATTERN - Cardiovascular Exam Cardiovascular Exam: REGULAR RHYTHM - GI/Abdominal Exam GI & Abdominal Exam: Soft, Normal Bowel Sounds Assessment and Plan - Assessment and Plan (Free Text) Assessment: 32 yo male with EtOH abuse advance diet DT prophylaxis
[2018-04-28] MEDS: Pantoprazole 40 MG in Sodium Chloride 0.9% 100 ML IVPB SCH ×5 (02:57→22:29)
[2018-04-28 06:49] LABS: HEMOGLOBIN 9.7 g/dL (12.0-18.0); MEAN CELL VOLUME 72.5 fl (80.0-94.0); MEAN CORPUSCULAR HEMOGLOBIN 22.2 pg (27.0-31.0); MEAN CORPUSCULAR HGB CONC 30.6 g/dL (33.0-37.0); RBC 4.37 Mil/uL (4.40-5.90); RED CELL DISTRIBUTION WIDTH 22.9 % (11.5-14.5); WHITE BLOOD COUNT 5.3 K/uL (4.8-10.8)
[2018-04-28 08:17] VITALS: O2SAT 98
--- NOTE | 2018-04-28 13:16 | CP.PCM.DIS ---
Provider - Provider Date of Admission: 04/25/18 22:09 Attending physician: Keanu Armstrong Consults: 04/26/18 07:00 Gastroenterology Consult Routine Comment: Consulting Provider: Kevin Ahumada Consulting Physician: Kevin Ahumada Reason for Consult: Upper GI bleed Time Spent in preparation of Discharge (in minutes): 30 Diagnosis - Discharge Diagnosis (1) UGIB (upper gastrointestinal bleed) Status: Acute Comment: no evidence of active bleeding at this eval. Follow up with PMD in 2-3 days. Follow up with GI for possible endoscopy. (2) Alcohol abuse with intoxication Status: Chronic (3) Abnormal LFTs (liver function tests) Status: Chronic (4) Hypokalemia Status: Acute Comment: resolved on admission (5) Hypertension Status: Chronic Hospital Course - Lab Results Lab Results: Most Recent Lab Values WBC 5.3 K/uL (4.8-10.8) 04/28/18 06:00 RBC 4.37 Mil/uL (4.40-5.90) L 04/28/18 06:00 Hgb 9.7 g/dL (12.0-18.0) L 04/28/18 06:00 Hct 31.7 % (35.0-51.0) L 04/28/18 06:00 MCV 72.5 fl (80.0-94.0) L 04/28/18 06:00 MCH 22.2 pg (27.0-31.0) L 04/28/18 06:00 MCHC 30.6 g/dL (33.0-37.0) L 04/28/18 06:00 RDW 22.9 % (11.5-14.5) H 04/28/18 06:00 Plt Count 197 K/uL (130-400) 04/28/18 06:00 MPV 8.4 fl (7.2-11.7) 04/26/18 20:00 Neut % (Auto) 76.4 % (50.0-75.0) H 04/26/18 20:00 Lymph % (Auto) 12.5 % (20.0-40.0) L 04/26/18 20:00 [place] % (Auto) 10.1 % (0.0-10.0) H 04/26/18 20:00 Eos % (Auto) 0.6 % (0.0-4.0) 04/26/18 20:00 Baso % (Auto) 0.4 % (0.0-2.0) 04/26/18 20:00 Neut # (Auto) 5.4 K/uL (1.8-7.0) 04/26/18 20:00 Lymph # (Auto) 0.9 K/uL (1.0-4.3) L 04/26/18 20:00 [place] # (Auto) 0.7 K/uL (0.0-0.8) 04/26/18 20:00 Eos # (Auto) 0.0 K/uL (0.0-0.7) 04/26/18 20:00 Baso # (Auto) 0.0 K/uL (0.0-0.2) 04/26/18 20:00 PT 12.7 Seconds (9.8-13.1) 04/25/18 21:40 INR 1.1 04/25/18 21:40 APTT 34.2 Seconds (25.6-37.1) 04/25/18 21:40 Sodium 136 mmol/l (132-148) 04/27/18 06:00 Potassium 4.0 MMOL/L (3.6-5.0) 04/27/18 06:00 Chloride 105 mmol/L (98-107) 04/27/18 06:00 Carbon Dioxide 22 mmol/L (22-30) 04/27/18 06:00 Anion Gap 13 (10-20) 04/27/18 06:00 BUN 4 mg/dl (9-20) L 04/27/18 06:00 Creatinine 0.7 mg/dl (0.8-1.5) L 04/27/18 06:00 Est GFR ( Amer) > 60 04/27/18 06:00 Est GFR (Non-Af Amer) > 60 04/27/18 06:00 POC Glucose (mg/dL) 116 mg/dL (65-110) H 04/28/18 11:58 Random Glucose 101 mg/dL (75-110) 04/27/18 06:00 Calcium 8.3 mg/dL (8.4-10.2) L 04/27/18 06:00 Phosphorus 1.9 mg/dl (2.5-4.5) L 04/27/18 06:00 Magnesium 1.9 MG/DL (1.6-2.3) 04/27/18 06:00 Total Bilirubin 0.6 mg/dl (0.2-1.3) 04/27/18 06:00 AST 77 U/L (17-59) H D 04/27/18 06:00 ALT 66 U/L (21-72) 04/27/18 06:00 Alkaline Phosphatase 80 U/L (38-126) 04/27/18 06:00 Ammonia 19 umo/L (16-60) 04/25/18 21:40 Total Protein 7.0 G/DL (6.3-8.2) 04/27/18 06:00 Albumin 3.3 g/dL (3.5-5.0) L 04/27/18 06:00 Globulin 3.7 gm/dL (2.2-3.9) 04/27/18 06:00 Albumin/Globulin Ratio 0.9 (1.0-2.1) L 04/27/18 06:00 Lipase 260 U/L (23-300) 04/25/18 21:40 Stool Occult Blood Negative (NEGATIVE) 04/26/18 14:41 Alcohol, Quantitative 472 mg/dl (0-10) H* 04/25/18 14:40 Blood Type A POSITIVE 04/25/18 21:40 Antibody Screen Negative 04/25/18 21:40 Crossmatch See Detail 04/25/18 21:40 BBK History Checked Patient has bt 04/25/18 21:40 - Hospital Course Hospital Course: 32 y/o M with PMHx of HTN, schizophrenia, ETOH abuse, Anemia, GIbleed is admitted for ETOH intoxication , ETOH level 472 and GI bleed with Hgb 6.3. On admission patient received 2 units of PRBC. No evidence of blood productions reaction. After transfusion Hgb improved to 8.9, and has been stable. GI was consulted. GI recommended advance diet, and cleared patient for discharge if tolerating advance diet. Diet was advanced, and patient tolerated it well. Patient managed with NPO status on admission, PPI, advance diet as per GI recommendations, Folic Acid, Thiamine, CIWA protocol with Librium shaka, and Ativan PRN. Patient was seen and examined at bedside this morning. Patient feels better, denies CP, SOB, N/V, abdominal pain. Hgb today stable, and improved, from 8.9 to 9.7. No evidence of active bleeding at this time. Patient stable for discharge with recommended follow up as outpatient with PMD, and GI for possible endoscopy. - Date & Time of H&P Date of H&P: 04/25/18 Discharge Exam - Head Exam Head Exam: ATRAUMATIC, NORMOCEPHALIC - Eye Exam Eye Exam: Normal appearance - ENT Exam ENT Exam: Mucous Membranes Moist - Respiratory Exam Respiratory Exam: Clear to PA & Lateral, NORMAL BREATHING PATTERN - Cardiovascular Exam Cardiovascular Exam: REGULAR RHYTHM, +S1, +S2 - GI/Abdominal Exam GI & Abdominal Exam: Normal Bowel Sounds, Soft. absent: Distended, Guarding, Rigid - Extremities Exam Extremities exam: normal inspection - Neurological Exam Neurological exam: Alert, Oriented x3 Discharge Plan - Discharge Medications Prescriptions: chlordiazePOXIDE [Librium] 10 mg PO Q6 #10 cap Folic Acid 1 mg PO DAILY 30 Days #30 tab Omeprazole 40 mg PO DAILY #30 capsule. Thiamine [Vitamin B1 Tab] 100 mg PO DAILY #30 tab - Follow Up Plan Condition: STABLE Disposition: HOME/ ROUTINE Patient education suggested?: Yes Instructions: Gastrointestinal Bleeding, Alcohol Abuse and Alcoholism (DC) Additional Instructions: Activity as tolerated. Avoid too much drinking alcohol, [place] diet. Monitor for any unusual bleeding. Follow-up in [facility] in 3 days to call for appointment. . Referrals: [facility] [place] [Outside] Kevin Ahumada MD, PhD [Staff Provider] -
[2018-04-29] MEDS: Pantoprazole 40 MG in Sodium Chloride 0.9% 100 ML IVPB SCH ×2 (03:47→09:34)
--- NOTE | 2018-04-29 08:35 | CON ---
DATE: 04/26/2018 REFERRING PHYSICIAN: Dr. Armstrong. REASON FOR CONSULTATION: Hematemesis . HISTORY OF PRESENT ILLNESS: This is a 32-year-old male, well known to my service complaints. The patient is a hard alcohol drinker, usually drinks heavily, came in with alcohol level of greater than 400, history of schizophrenia, hypertension. The patient was found on the street, intoxicated, brought the ER, had one episode of bloody emesis right now. Currently lying in bed, comfortable, in no apparent distress. PAST MEDICAL HISTORY: As above. SURGICAL HISTORY: As above. MEDICATIONS: Have been reviewed. REVIEW OF SYSTEMS: All other systems have been reviewed and negative apart from the HPI. PHYSICAL EXAMINATION: VITAL SIGNS: Here in the hospital grossly unremarkable. GENERAL: A middle aged male, lying in bed comfortable, in no apparent distress. HEENT: Head: Normocephalic and atraumatic. Eyes: Pupils are equally reactive to light bilaterally. No conjunctival pallor or icterus. NECK: Supple. Normal range of motion. No lymphadenopathy appreciated. LUNGS: Coarse breath sounds bilaterally. HEART: S1 and S2. Regular rate and rhythm. ABDOMEN: Soft, nontender. Bowel sounds are present. There is discomfort in the right upper quadrant. RECTAL: Deferred. EXTREMITIES: Pulses present bilaterally. SKIN: Warm, dry, and intact. NEUROLOGIC: A and O x3. LABORATORY DATA: Labs and radiology have been reviewed. Labs include WBC of 5.4, hemoglobin of 6.7, hematocrit and platelet count of 180. INR is 1.1. Alcohol level is 472. AST and ALT 140/83. Total bili is normal. ASSESSMENT AND PLAN: This is a 32-year-old alcohol abuser with hematemesis he had a scope by me. I do not remember where and which hospital it was, but right now, we recommend Protonix IV until he can tolerate diet. From gastrointestinal standpoint, no complications for feeding. Librium protocol for possible delirium tremens. Thank you for the consult. Kevin Ahumada MD/ PhD cc: Keanu Armstrong MD
[2018-04-29 08:37] VITALS: RESP 20
--- NOTE | 2018-04-29 10:12 | CP.PCM.PN ---
Subjective - Date & Time of Evaluation Date of Evaluation: 04/29/18 Time of Evaluation: 10:11 - Subjective Subjective: no overnight events Objective - Vital Signs/Intake and Output Vital Signs (last 24 hours): Temp Pulse Resp BP Pulse Ox 98.5 F 135 H 20 119/71 98 04/29/18 08:36 04/29/18 10:07 04/29/18 08:36 04/29/18 10:07 04/29/18 08:36 - Medications Medications: Current Medications Acetaminophen (Tylenol 325mg Tab) 650 mg PO Q6 PRN PRN Reason: Fever >100.4 F Last Admin: 04/27/18 01:39 Dose: 650 mg Acetaminophen (Tylenol 325mg Tab) 325 mg PO Q6 PRN PRN Reason: Pain, Mild (1-3) Last Admin: 04/28/18 03:51 Dose: 325 mg Chlordiazepoxide (Librium) 25 mg PO Q8 [facility] Last Admin: 04/29/18 09:38 Dose: 25 mg Folic Acid (Folic Acid) 1 mg PO DAILY [facility] Last Admin: 04/29/18 09:36 Dose: 1 mg Pantoprazole Sodium 40 mg/ (Sodium Chloride) 100 mls @ 20 mls/hr IVPB Q5H [facility] Last Admin: 04/29/18 09:34 Dose: Not Given Lorazepam (Ativan) 1 mg PO Q4 PRN PRN Reason: Agitation Last Admin: 04/28/18 18:54 Dose: 1 mg Metoprolol Tartrate (Lopressor) 25 mg PO Q12 [facility] Ondansetron HCl (Zofran Inj) 4 mg IVP Q6 PRN PRN Reason: Nausea/Vomiting Risperidone (Risperdal Tab) 1 mg PO BID [facility] Last Admin: 04/29/18 09:36 Dose: 1 mg Thiamine HCl (Vitamin B1 Tab) 100 mg PO DAILY [facility] Last Admin: 04/29/18 09:36 Dose: 100 mg - Labs Labs: 04/28/18 06:00 04/27/18 06:00 PT 12.7 Seconds (9.8-13.1) 04/25/18 21:40 INR 1.1 04/25/18 21:40 APTT 34.2 Seconds (25.6-37.1) 04/25/18 21:40 - Head Exam Head Exam: NORMOCEPHALIC - Neck Exam Neck Exam: Normal Inspection - Respiratory Exam Respiratory Exam: Clear to Ausculation Bilateral, NORMAL BREATHING PATTERN - Cardiovascular Exam Cardiovascular Exam: REGULAR RHYTHM - GI/Abdominal Exam GI & Abdominal Exam: Soft, Normal Bowel Sounds Assessment and Plan - Assessment and Plan (Free Text) Assessment: 32 yo male with etoh abuse no bleeding dc planning once able
--- NOTE | 2018-04-29 10:42 | CARD ---
APPROVED REPORT Date of service: 04/29/2018 EKG Measurement Heart [id number] <Conclusion> Sinus tachycardia Otherwise normal ECG
[2018-04-29 11:23] LABS: BASO % 0.8 % (0.0-2.0); EOS # 0.1 K/uL (0.0-0.7); EOS % 2.7 % (0.0-4.0); HEMOGLOBIN 9.5 g/dL (12.0-18.0); LYMPH # 0.7 K/uL (1.0-4.3); LYMPH % 16.1 % (20.0-40.0); MEAN CELL VOLUME 74.4 fl (80.0-94.0); MEAN CORPUSCULAR HEMOGLOBIN 22.3 pg (27.0-31.0); MEAN PLATELET VOLUME 8.6 fl (7.2-11.7); MONO # 0.5 K/uL (0.0-0.8); MONO % 11.7 % (0.0-10.0); NEUT # 3.2 K/uL (1.8-7.0); NEUT % 68.7 % (50.0-75.0); NRBC % 0.3 % (0.0-0.0); RBC 4.25 Mil/uL (4.40-5.90); RED CELL DISTRIBUTION WIDTH 23.5 % (11.5-14.5); WHITE BLOOD COUNT 4.6 K/uL (4.8-10.8)
--- NOTE | 2018-04-29 12:05 | CP.PCM.DIS ---
<Lisa Chung - Last Filed: 04/29/18 16:27> Provider - Provider Date of Admission: 04/25/18 22:09 Attending physician: Keanu Armstrong Consults: 04/26/18 07:00 Gastroenterology Consult Routine Comment: Consulting Provider: Kevin Ahumada Consulting Physician: Kevin Ahumada Reason for Consult: Upper GI bleed Time Spent in preparation of Discharge (in minutes): 30 Diagnosis - Discharge Diagnosis (1) UGIB (upper gastrointestinal bleed) Status: Acute (2) Alcohol abuse with intoxication Status: Chronic (3) Abnormal LFTs (liver function tests) Status: Chronic (4) Hypokalemia Status: Acute (5) Hypertension Status: Chronic Hospital Course - Lab Results Lab Results: Most Recent Lab Values WBC 4.6 K/uL (4.8-10.8) L 04/29/18 10:35 RBC 4.25 Mil/uL (4.40-5.90) L 04/29/18 10:35 Hgb 9.5 g/dL (12.0-18.0) L 04/29/18 10:35 Hct 31.6 % (35.0-51.0) L 04/29/18 10:35 MCV 74.4 fl (80.0-94.0) L 04/29/18 10:35 MCH 22.3 pg (27.0-31.0) L 04/29/18 10:35 MCHC 30.0 g/dL (33.0-37.0) L 04/29/18 10:35 RDW 23.5 % (11.5-14.5) H 04/29/18 10:35 Plt Count 200 K/uL (130-400) 04/29/18 10:35 MPV 8.6 fl (7.2-11.7) 04/29/18 10:35 Neut % (Auto) 68.7 % (50.0-75.0) 04/29/18 10:35 Lymph % (Auto) 16.1 % (20.0-40.0) L 04/29/18 10:35 [place] % (Auto) 11.7 % (0.0-10.0) H 04/29/18 10:35 Eos % (Auto) 2.7 % (0.0-4.0) 04/29/18 10:35 Baso % (Auto) 0.8 % (0.0-2.0) 04/29/18 10:35 Neut # (Auto) 3.2 K/uL (1.8-7.0) 04/29/18 10:35 Lymph # (Auto) 0.7 K/uL (1.0-4.3) L 04/29/18 10:35 [place] # (Auto) 0.5 K/uL (0.0-0.8) 04/29/18 10:35 Eos # (Auto) 0.1 K/uL (0.0-0.7) 04/29/18 10:35 Baso # (Auto) 0.0 K/uL (0.0-0.2) 04/29/18 10:35 PT 12.7 Seconds (9.8-13.1) 04/25/18 21:40 INR 1.1 04/25/18 21:40 APTT 34.2 Seconds (25.6-37.1) 04/25/18 21:40 Sodium 136 mmol/l (132-148) 04/27/18 06:00 Potassium 4.0 MMOL/L (3.6-5.0) 04/27/18 06:00 Chloride 105 mmol/L (98-107) 04/27/18 06:00 Carbon Dioxide 22 mmol/L (22-30) 04/27/18 06:00 Anion Gap 13 (10-20) 04/27/18 06:00 BUN 4 mg/dl (9-20) L 04/27/18 06:00 Creatinine 0.7 mg/dl (0.8-1.5) L 04/27/18 06:00 Est GFR ( Amer) > 60 04/27/18 06:00 Est GFR (Non-Af Amer) > 60 04/27/18 06:00 POC Glucose (mg/dL) 96 mg/dL (65-110) 04/29/18 11:06 Random Glucose 101 mg/dL (75-110) 04/27/18 06:00 Calcium 8.3 mg/dL (8.4-10.2) L 04/27/18 06:00 Phosphorus 1.9 mg/dl (2.5-4.5) L 04/27/18 06:00 Magnesium 1.9 MG/DL (1.6-2.3) 04/27/18 06:00 Total Bilirubin 0.6 mg/dl (0.2-1.3) 04/27/18 06:00 AST 77 U/L (17-59) H D 04/27/18 06:00 ALT 66 U/L (21-72) 04/27/18 06:00 Alkaline Phosphatase 80 U/L (38-126) 04/27/18 06:00 Ammonia 19 umo/L (16-60) 04/25/18 21:40 Total Protein 7.0 G/DL (6.3-8.2) 04/27/18 06:00 Albumin 3.3 g/dL (3.5-5.0) L 04/27/18 06:00 Globulin 3.7 gm/dL (2.2-3.9) 04/27/18 06:00 Albumin/Globulin Ratio 0.9 (1.0-2.1) L 04/27/18 06:00 Lipase 260 U/L (23-300) 04/25/18 21:40 Stool Occult Blood Negative (NEGATIVE) 04/26/18 14:41 Alcohol, Quantitative 472 mg/dl (0-10) H* 04/25/18 14:40 Blood Type A POSITIVE 04/25/18 21:40 Antibody Screen Negative 04/25/18 21:40 Crossmatch See Detail 04/25/18 21:40 BBK History Checked Patient has bt 04/25/18 21:40 - Hospital Course Hospital Course: 32 y/o M with PMHx of HTN, schizophrenia, ETOH abuse, Anemia, GIbleed is admitted for ETOH intoxication , ETOH level 472 and GI bleed with Hgb 6.3. On admission patient received 2 units of PRBC. No evidence of blood productions reaction. After transfusion Hgb improved to 8.9, and has been stable. GI was consulted. GI recommended advance diet, and cleared patient for discharge if tolerating advance diet. Diet was advanced, and patient tolerated it well. Patient managed with NPO status on admission, PPI, advance diet as per GI recommendations, Folic Acid, Thiamine, CIWA protocol with Librium shaka, and Ativ an PRN. Hgb today stable, and improved, from 8.9 to 9.7. No evidence of active bleeding at this time. Patient stable for discharge with recommended follow up as outpatient with PMD, and GI for possible endoscopy. Yesterday, Patient's discharge order was discontinued due to persistently elevated HR in 120's-150s. Tachycardia likely secondary to alcohol withdrawal. Denies any chest pain, or dyspnea on exertions. Ativan 1 mg was given, and Lopressor 12.5mg started. Patient was seen and examined at bedside this morning. On exam, patient lying comfortably at bed, not in acute distress. Patient feels better, denies CP, SOB, N/V, abdominal pain. Still tachy, EKG at bedside: NSR, sinus tachy. Tachycardia improved after stat dose of lopressor 12.5, repeat CBC reported stable hgb, TSH WNL. Lopressor dose was increased from 12.5 mg to 25 mg BID. Also patient will be discharged home on slow taper down Librium dose. - Date & Time of H&P Date of H&P: 04/25/18 Time of H&P: 22:30 Discharge Exam - Head Exam Head Exam: ATRAUMATIC, NORMOCEPHALIC - Eye Exam Eye Exam: Normal appearance - ENT Exam ENT Exam: Mucous Membranes Moist - Respiratory Exam Respiratory Exam: Clear to PA & Lateral, NORMAL BREATHING PATTERN. absent: Rales, Rhonchi, Respiratory Distress, Stridor - Cardiovascular Exam Cardiovascular Exam: REGULAR RHYTHM, +S1, +S2 - GI/Abdominal Exam GI & Abdominal Exam: Normal Bowel Sounds, Soft. absent: Guarding, Rebound, Rigid, Tenderness - Extremities Exam Extremities exam: normal inspection - Neurological Exam Neurological exam: Alert, Oriented x3 - Psychiatric Exam Psychiatric exam: Normal Affect, Normal Mood - Skin Skin Exam: Dry, Intact, Normal Color Discharge Plan - Discharge Medications Prescriptions: chlordiazePOXIDE [Chlordiazepoxide HCl] 10 mg PO Q6 #20 cap Folic Acid 1 mg PO DAILY 30 Days #30 tab Metoprolol Tartrate [Lopressor] 25 mg PO Q12 #60 tab Omeprazole 40 mg PO DAILY #30 capsule. Thiamine [Vitamin B1 Tab] 100 mg PO DAILY #30 tab - Follow Up Plan Condition: STABLE Disposition: HOME/ ROUTINE Patient education suggested?: Yes Instructions: Gastrointestinal Bleeding, Alcohol Abuse and Alcoholism (DC) Additional Instructions: Activity as tolerated. Avoid too much drinking alcohol, [place] diet. Monitor for any unusual bleeding. Follow[facility] in [facility] in 3 days 05/06/18 at 10:20am with . Referrals: [facility] [place] [Outside] Kevin Ahumada MD, PhD [Staff Provider] - <Ivette Milner - Last Filed: 04/29/18 16:55> Provider - Provider Date of Admission: 04/25/18 22:09 Attending physician: Keanu Armstrong Consults: 04/26/18 07:00 Gastroenterology Consult Routine Comment: Consulting Provider: Kevin Ahumada Consulting Physician: Kvein Ahumada Reason for Consult: Upper GI bleed Hospital Course - Lab Results Lab Results: Most Recent Lab Values WBC 4.6 K/uL (4.8-10.8) L 04/29/18 10:35 RBC 4.25 Mil/uL (4.40-5.90) L 04/29/18 10:35 Hgb 9.5 g/dL (12.0-18.0) L 04/29/18 10:35 Hct 31.6 % (35.0-51.0) L 04/29/18 10:35 MCV 74.4 fl (80.0-94.0) L 04/29/18 10:35 MCH 22.3 pg (27.0-31.0) L 04/29/18 10:35 MCHC 30.0 g/dL (33.0-37.0) L 04/29/18 10:35 RDW 23.5 % (11.5-14.5) H 04/29/18 10:35 Plt Count 200 K/uL (130-400) 04/29/18 10:35 MPV 8.6 fl (7.2-11.7) 04/29/18 10:35 Neut % (Auto) 68.7 % (50.0-75.0) 04/29/18 10:35 Lymph % (Auto) 16.1 % (20.0-40.0) L 04/29/18 10:35 [place] % (Auto) 11.7 % (0.0-10.0) H 04/29/18 10:35 Eos % (Auto) 2.7 % (0.0-4.0) 04/29/18 10:35 Baso % (Auto) 0.8 % (0.0-2.0) 04/29/18 10:35 Neut # (Auto) 3.2 K/uL (1.8-7.0) 04/29/18 10:35 Lymph # (Auto) 0.7 K/uL (1.0-4.3) L 04/29/18 10:35 [place] # (Auto) 0.5 K/uL (0.0-0.8) 04/29/18 10:35 Eos # (Auto) 0.1 K/uL (0.0-0.7) 04/29/18 10:35 Baso # (Auto) 0.0 K/uL (0.0-0.2) 04/29/18 10:35 PT 12.7 Seconds (9.8-13.1) 04/25/18 21:40 INR 1.1 04/25/18 21:40 APTT 34.2 Seconds (25.6-37.1) 04/25/18 21:40 Sodium 136 mmol/l (132-148) 04/27/18 06:00 Potassium 4.0 MMOL/L (3.6-5.0) 04/27/18 06:00 Chloride 105 mmol/L (98-107) 04/27/18 06:00 Carbon Dioxide 22 mmol/L (22-30) 04/27/18 06:00 Anion Gap 13 (10-20) 04/27/18 06:00 BUN 4 mg/dl (9-20) L 04/27/18 06:00 Creatinine 0.7 mg/dl (0.8-1.5) L 04/27/18 06:00 Est GFR ( Amer) > 60 04/27/18 06:00 Est GFR (Non-Af Amer) > 60 04/27/18 06:00 POC Glucose (mg/dL) 96 mg/dL (65-110) 04/29/18 11:06 Random Glucose 101 mg/dL (75-110) 04/27/18 06:00 Calcium 8.3 mg/dL (8.4-10.2) L 04/27/18 06:00 Phosphorus 1.9 mg/dl (2.5-4.5) L 04/27/18 06:00 Magnesium 1.9 MG/DL (1.6-2.3) 04/27/18 06:00 Total Bilirubin 0.6 mg/dl (0.2-1.3) 04/27/18 06:00 AST 77 U/L (17-59) H D 04/27/18 06:00 ALT 66 U/L (21-72) 04/27/18 06:00 Alkaline Phosphatase 80 U/L (38-126) 04/27/18 06:00 Ammonia 19 umo/L (16-60) 04/25/18 21:40 Total Protein 7.0 G/DL (6.3-8.2) 04/27/18 06:00 Albumin 3.3 g/dL (3.5-5.0) L 04/27/18 06:00 Globulin 3.7 gm/dL (2.2-3.9) 04/27/18 06:00 Albumin/Globulin Ratio 0.9 (1.0-2.1) L 04/27/18 06:00 Lipase 260 U/L (23-300) 04/25/18 21:40 TSH 3rd Generation 1.14 mIU/ML (0.46-4.68) 04/29/18 10:35 Stool Occult Blood Negative (NEGATIVE) 04/26/18 14:41 Alcohol, Quantitative 472 mg/dl (0-10) H* 04/25/18 14:40 Blood Type A POSITIVE 04/25/18 21:40 Antibody Screen Negative 04/25/18 21:40 Crossmatch See Detail 04/25/18 21:40 BBK History Checked Patient has bt 04/25/18 21:40 Attending/Attestation - Attestation I have personally seen and examined this patient.: Yes I have fully participated in the care of the patient.: Yes I have reviewed all pertinent clinical information, including history, physical exam and plan: Yes
[2018-04-29 13:05] VITALS: BP 122/82; PULSE 97; TEMP 98.4
--- NOTE | 2018-05-01 09:21 | PQF ---
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 Progress note 04/26 and 04/27 upper GI bleed most likely due to Shirley Bello, gastritis, UD. Please clarify if you agree with diagnoses below. The patient's Clinical Indicators include: xxx Query created by: Kay Oscar on 05/01/2018 8:22 AM Electronically signed by: Ivette Milner MD 05/01/2018 9:18 AM
== END 2018-04-29 14:45 | disposition home or self-care (01) | DRG 775 ==
LOC: H.ER 12:40 → H.ERHOLD 22:09 → H.TEL 04-26 00:13
PROVIDERS: ADMIT Internal Medicine; ATTEND Internal Medicine
PROC: 30233N1 Transfusion of Nonautologous Red Blood Cells into Peripheral Vein, Percutaneous Approach (ICD-10-PCS; principal; 2018-04-26)
DX: F10.229 Alcohol dependence with intoxication, unspecified (principal); F10.239 Alcohol dependence with withdrawal, unspecified; K22.6 Gastro-esophageal laceration-hemorrhage syndrome; K29.21 Alcoholic gastritis with bleeding; K70.10 Alcoholic hepatitis without ascites; F20.9 Schizophrenia, unspecified; D62 Acute posthemorrhagic anemia; E87.6 Hypokalemia; Y90.8 Blood alcohol level of 240 mg/100 ml or more; Z91.14 Patient's other noncompliance with medication regimen; E11.9 Type 2 diabetes mellitus without complications; I10 Essential (primary) hypertension; R74.8 Abnormal levels of other serum enzymes